=== PATIENT | female | born 1975 | race Caucasian/White ===

== ENCOUNTER → 2016-04-17 | Outpatient (CLI) | payer OTHER ==
[~2016-04-17] MED LIST: BIOTCAP2 PO; CHOL100040 PO; CLOZ100T18 PO; HLD5 PO; LAMO200T32 PO; LEVO88TA21 PO; MULT-506 PO; OMEP20CA59 PO; SERT1TAB68 PO; lovaza PO
--- NOTE | 2016-04-18 14:24 | MAMMOGRAPHY REPORT ---
BILATERAL FIRST EVER DIGITAL SCREENING MAMMOGRAM TOMOSYNTHESIS WITH CAD: 04/17/2016 CLINICAL HISTORY: Routine screening. Baseline exam. TECHNIQUE: Breast tomosynthesis in addition to standard 2D mammography was performed. Current study was also evaluated with a Computer Aided Detection (CAD) system. COMPARISON: No prior exams were available for comparison. BREAST COMPOSITION: There are scattered areas of fibroglandular density in both breasts. FINDINGS: There is a lobulated 16 x 9 mm mass in the 1:00 posterior left breast, and a smaller oval 5.7 mm mass in the 4:00 posterior left breast, for which additional characterization with targeted ultrasound and possible additional mammographic views are recommended. No other suspicious mass, architectural distortion or cluster of microcalcifications is seen bilater ally. IMPRESSION: ACR BI-RADS CATEGORY 0: INCOMPLETE EVALUATION: NEED ADDITIONAL IMAGING EVALUATION The masses in the left 1:00 and 4:00 posterior breast need additional imaging evaluation. The patient will be called to schedule an appointment. Approximately 10% of breast cancers are not detected with mammography. A negative mammographic repor t should not delay biopsy if a clinically suggestive mass is present. Keya Edgar M.D. ay/:04/17/2016 21:09:53 Special Needs Bus Driver: Anna FLORES)(Janny)([place]), [facility] letter sent: Addl Imaging 0 BI-RADS Code: ACR BI-RADS Category 0: Incomplete Evaluation: Need Additional Imaging Evaluation
== END | disposition home or self-care (01) ==
LOC: C.MAMM 10:29
PROVIDERS: ATTEND Internal Medicine
DX: Z12.31 Encounter for screening mammogram for malignant neoplasm of breast (principal); N63 Unspecified lump in breast

== ENCOUNTER → 2016-05-09 | Outpatient (CLI) | payer OTHER ==
--- NOTE | 2016-05-09 17:12 | MAMMOGRAPHY REPORT ---
ULTRASOUND OF LEFT BREAST: 05/09/2016 CLINICAL HISTORY: 41 year-old woman called back from baseline screening mammography for to lobulated and circumscribed masses in the upper outer quadrant of the left breast. No strong family history of breast cancer. COMPARISON: No prior exams were available for comparison. FINDINGS: Real-time high-resolution sonographic evaluation was performed throughout the entire late ral left breast. In the 3:00 axis, 3 cm from the nipple, there is an ovoid parallel hypoechoic cyst versus focal duct ectasia measuring 4.6 x 3.6 mm. This is thought to be incidentally identified. No other discrete solid or cystic mass is seen. There is no sonographic correlate to the lobulated and circumscribed 15 mm and 6 mm mammographic masses in the posterior left upper outer quadrant. IMPRESSION: ACR BI-RADS CATEGORY 0: INCOMPLETE EVALUATION: NEED ADDITIONAL IMAGING EVALUATION - FOL LOW-UP RECOMMENDED The 15 mm and 6 mm lobulated and circumscribed masses in the left upper outer posterior breast were not identified on ultrasound. Given that they are best identified on the tomosynthesis and on the s tandard 2-D views they blend in with the normal glandular tissue, they are not amenable to targeting via stereotactic biopsy. Although they could represent benign fibroadenomas, definitive characteri zation with a bilateral breast MRI is needed to exclude the possibility of a suspicious enhancing ma ss. These recommendations were discussed with the patient at the time of the exam. She tentatively sche duled the MRI prior to leaving our department. Keya Edgar M.D. ay/:05/09/2016 15:20:06 Public Utilities Sales Representative: Dr. Keya Edgar, [facility] letter sent: Addl Imaging 0 BI-RADS Code: ACR BI-RADS Category 0: Incomplete Evaluation: Need Additional Imaging Evaluation
== END | disposition home or self-care (01) ==
LOC: C.MAMM 13:39
PROVIDERS: ATTEND Internal Medicine
DX: N63 Unspecified lump in breast (principal)

== ENCOUNTER → 2016-05-21 | Outpatient (CLI) | payer OTHER ==
[~2016-05-21] MED LIST changes: +GADAVIST IV PRN
--- NOTE | 2016-05-22 13:02 | MAMMOGRAPHY REPORT ---
BREAST MRI OF BOTH BREASTS : 05/21/2016 CLINICAL HISTORY: Lobulated 15 mm and 6 mm masses in the upper outer quadrant of the left breast see n mammographically on the tomosynthesis images, without sonographic correlate identified. Patient p resents for further evaluation to assess for any suspicious enhancing masses. COMPARISON: Comparison is made to exams dated: 04/17/2016 mammogram and 05/09/2016 ultrasound - [facility]. TECHNIQUE: Using a 1.5 Emilie magnet and dedicated breast coil, multisequence axial images were obtai nancy through the breasts. After uneventful IV administration of 9 mL of Gadavist, dynamic multiphase contrast-enhanced axial images, and sagittal postcontrast were obtained. Temporal subtraction axia l images and 3-D MIP images are provided. Everything was then reviewed on a 3-D workstation, Rezzcard. FINDINGS: Right breast: There is bqjy-xv-dceyjjso background parenchymal enhancement with scattered foci of en hancement seen throughout the right breast. There is no evidence of a suspicious enhancing mass, no n-mass enhancement, architectural distortion or suspicious kinetics. No focal skin thickening or ni pple retraction. No suspicious right axillary lymphadenopathy. Left breast: There is ywcr-zh-[id number] background parenchymal enhancement with scattered foci of enh ancement throughout the left breast. There is a circumscribed biconvex 8 x 6 x 16 mm mass in the 12 :00 middle one third of the left breast. It demonstrates T2 isointensity, has mild areas of persist ent kinetics and non-enhancing internal septae. This mass is the same shape and size as the mammogr aphic mass, however, is located at 12:00, but it appeared more in the upper outer quadrant based on mammographic positioning. This is likely the reason for and unyielding ultrasound. Given the MRI a ppearance this most likely represents a benign fibroadenoma. However, given that it was identified on the patient's baseline mammogram, a short interval follow-up left mammogram including tomosynthes is images and possible repeat ultrasound is recommended to ensure stability in 6 months. No other d efinite cyst or solid mass is seen to correlate with the smaller, 6 mm mass seen mammographically, a nd this could have represented normal overlapping tissue. Overall, there is no evidence of a suspic ious enhancing mass, non-mass enhancement, architectural distortion or suspicious kinetics within th e left breast. There is no focal skin thickening or nipple retraction. No suspicious left axillary lymphadenopathy. IMPRESSION: ACR-BI-RADS CATEGORY 3: PROBABLY BENIGN 1. There is a well-circumscribed benign-appearing 16 mm mass with nonenhancing internal septae in t he 12:00 left breast, thought to correlate with the mammographic mass described on the 04/17/2016 ma mmogram. It was likely not identified sonographically given that it appeared more lateral within th e breast based on mammogram positioning. The MRI features suggest a benign fibroadenoma but a short interval follow-up left mammogram including tomosynthesis images and possible repeat ultrasound is recommended to ensure stability, given that this was identified on the patient's baseline mammogram. 2. No suspicious MRI abnormality or enhancing mass is seen to correlate with the possible smaller 6 mm mass in the lateral left breast. This can also be reassessed at follow-up mammography. 3. No MRI evidence of malignancy within the right breast. The patient will receive written notification of the results. Keya Edgar M.D. ay/:05/21/2016 22:09:12 Mergers [employer] Acquisitions Attorney: cafeteria director, [facility] letter sent: Follow Up Recommended 3 BI-RADS Code: ACR-BI-RADS Category 3: Probably Benign
== END | disposition home or self-care (01) ==
LOC: C.MRI 12:07
PROVIDERS: ATTEND Internal Medicine
DX: N63 Unspecified lump in breast (principal)

== ENCOUNTER → 2016-05-25 | Outpatient (CLI) | payer OTHER ==
[~2016-05-25] MED LIST changes: -GADAVIST IV PRN
[2016-05-25 10:19] LABS: BLOOD UREA NITROGEN 14 mg/dl (7-18); GLUCOSE 101 mg/dl (70-99)
[2016-05-25 10:20] LABS: ALT/SGPT 27 U/L (12-78); AST/SGOT 15 U/L (15-37); CALCIUM 9.6 mg/dl (8.5-10.1); CARBON DIOXIDE 31 mmol/L (21-32); CHLORIDE 104 mmol/L (98-107); POTASSIUM 3.7 mmol/L (3.5-5.1); SODIUM 142 mmol/L (136-145)
[2016-05-25 10:31] LABS: ALKALINE PHOSPHATASE 87 U/L (45-117); CHOLESTEROL 171 mg/dl (0-200); CHOLESTEROL/HDL RATIO 3.1; HDL CHOLESTEROL 55 mg/dl; LDL CHOLESTEROL CALCULATED 82 mg/dl; THYROID STIMULATING HORMONE 0.815 uIu/ml (0.300-4.500); TRIGLYCERIDES 169 mg/dl (0-150); VERY LOW DENSITY LIPOPROT CALC 34 mg/dl
== END | disposition home or self-care (01) ==
LOC: C.LAB 08:44
PROVIDERS: ATTEND Psychiatry & Neurology Geriatric Psychiatry
DX: Z79.899 Other long term (current) drug therapy (principal); F25.9 Schizoaffective disorder, unspecified

== ENCOUNTER → 2016-11-19 | Outpatient (CLI) | payer OTHER ==
--- NOTE | 2016-11-19 15:25 | MAMMOGRAPHY REPORT ---
UNILATERAL LEFT DIGITAL DIAGNOSTIC MAMMOGRAM TOMOSYNTHESIS WITH CAD AND TARGETED LEFT ULTRASOUND: 10/31 CLINICAL HISTORY: 41 year-old woman presents for follow-up in the left breast for a benign-appearing 14 mm mass in the 12:00 axis. A second smaller circumscribed mass was also seen in the upper outer q uadrant on prior mammograms, but not definitely identified on MRI. TECHNIQUE: Left breast tomosynthesis in addition to standard 2D mammography was performed. Current st udy was also evaluated with a Computer Aided Detection (CAD) system. COMPARISON: Comparison is made to exams dated: 05/21/2016 breast MRI, 05/09/2016 ultrasound, and 017 mammogram - [facility]. BREAST COMPOSITION: The tissue of the left breast is heterogeneously dense, which may obscure small masses. FINDINGS: There is a lobulated and circumscribed 14 x 7 x 9 mm mass in the approximate 12:00 posteri or left breast, that has not significantly changed in size or appearance comparing to the prior mammo grams dated 04/17/2016. This mass was identified on breast MRI and had a benign appearance, possibly representing a fibroadenoma. Further evaluation with ultrasound was performed. A smaller, 3.7 x 5. 4 x 3.0 mm mass is identified in the approximate 3:00 posterior left breast. This is also stable com paring to the prior mammograms dated 04/17/2016. No other new suspicious mass, focal area of archite ctural distortion or suspicious calcifications are seen. Targeted ultrasound was performed in the left breast with particular attention to the 12:00 axis and lateral breast. In the 12:00 breast, 15 cm from the nipple, there is a mixed echogenicity Eiko isoec hoic and echogenic circumscribed parallel mass measuring 9.6 x 4.4 x 17.2 mm. This could represent a fibroadenolipoma or fibroadenoma. Overall it has a benign sonographic appearance. It correlates wi th both the mammographic mass and the MRI mass. Another six-month follow-up left diagnostic mammogra m and targeted ultrasound is recommended to ensure longer stability. In the 3:00 left breast, 3 cm f rom the nipple, there is an oval circumscribed hypoechoic solid versus cystic mass measuring 3.3 x 1. 7 x 3.8 mm. This is likely incidentally identified and is not thought to correlate with the second s maller circumscribed mammographic mass in the approximate 3:00 posterior axis. IMPRESSION: ACR-BI-RADS CATEGORY 3: PROBABLY BENIGN, TARGETED ULTRASOUND ACR-BI-RADS CATEGORY 3: PRO BABLY BENIGN 1. Stable mammographic appearance of the left breast including a benign appearing circumscribed and lobulated 17 mm mass in the upper 12:00 posterior breast. A second smaller circumscribed 5.4 mm mass is seen in the approximate 3:00 posterior breast, which is also unchanged dating back to April. A short interval follow-up left diagnostic mammogram and repeat targeted ultrasound is recommende d to ensure longer stability. Annual right mammography will also be due at that time. Approximately 10% of breast cancers are not detected with mammography. A negative mammographic report should not delay biopsy if a clinically suggestive mass is present. Keya Edgar M.D. ay/:11/19/2016 15:01:12 Skip Hoist Operator: Amy STERN(R)(M), [facility] letter sent: Follow Up Recommended 3 BI-RADS Code: ACR-BI-RADS Category 3: Probably Benign Ultrasound BI-RADS: ACR-BI-RADS Category 3: Pr obably Benign
== END | disposition home or self-care (01) ==
LOC: C.MAMM 10:07
PROVIDERS: ATTEND Internal Medicine
DX: N63 Unspecified lump in breast (principal)

== ENCOUNTER → 2017-03-19 | Outpatient (CLI) | payer OTHER ==
[2017-03-19 10:12] LABS: BASO % 0.1 %; BASO ABS # 0.01 K/uL (0-0.2); COMPLETE YES; HEMATOCRIT 42.5 % (37-47); IG% 0.1 %; LYMPH % 36.6 %; LYMPH ABS # 2.69 K/uL (1.2-3.4); MEAN CELL VOLUME 80.8 fL (80-100); MEAN CORPUSCULAR HEMOGLOBIN 26.2 pg (25-34); MEAN CORPUSCULAR HGB CONC 32.5 g/dl (32-36); MEAN PLATELET VOLUME 11.2 fL (7.4-10.4); MONO % 5.3 %; NEUT % 57.9 %; PLATELET COUNT 219 K/uL (130-400); RED BLOOD COUNT 5.26 M/uL (4.2-5.4); WHITE BLOOD COUNT 7.35 K/uL (4.8-10.8)
[2017-03-19 10:44] LABS: ALT/SGPT 21 U/L (12-78); BLOOD UREA NITROGEN 11 mg/dl (7-18); BUN/CREATININE RATIO 8.4 (10-20); CALCIUM 9.8 mg/dl (8.5-10.1); CARBON DIOXIDE 27 mmol/L (21-32); CHLORIDE 104 mmol/L (98-107); CHOLESTEROL 161 mg/dl (0-200); CREATININE 1.28 mg/dl (0.60-1.20); GLUCOSE 86 mg/dl (70-99); POTASSIUM 3.9 mmol/L (3.5-5.1); SODIUM 138 mmol/L (136-145); TRIGLYCERIDES 157 mg/dl (0-150); VERY LOW DENSITY LIPOPROT CALC 31 mg/dl
[2017-03-19 10:55] LABS: ALKALINE PHOSPHATASE 84 U/L (45-117); AST/SGOT 15 U/L (15-37); CHOLESTEROL/HDL RATIO 2.9; HDL CHOLESTEROL 55 mg/dl; LDL CHOLESTEROL CALCULATED 75 mg/dl; THYROID STIMULATING HORMONE 0.853 uIu/ml (0.300-4.500)
== END | disposition home or self-care (01) ==
LOC: C.LAB1850 09:37
PROVIDERS: ATTEND Psychiatry & Neurology Neurology
DX: Z79.899 Other long term (current) drug therapy (principal)

== ENCOUNTER 2017-05-17 14:08 | Emergency (ER) | payer OTHER ==
[~2017-05-17] VITALS: Ht 160 cm; Wt 88.4 kg
[~2017-05-17 14:08] MED LIST changes: -LAMO200T32 PO; -MULT-506 PO; -OMEP20CA59 PO; -SERT1TAB68 PO
[2017-05-17 14:17] VITALS: TEMP 36.9; Ht 160 cm; Wt 88.4 kg
[2017-05-17] MEDS ORDERED: OMEP20CA59 PO (15:49)
[2017-05-17] MEDS ORDERED: BUPR75TA20 PO (17:08)
[2017-05-17] MEDS ORDERED: OMEG10007 PO (17:08)
[2017-05-17] MEDS ORDERED: BENZ100C84 PO (17:08)
[2017-05-17] MEDS ORDERED: ATOR10TA82 PO (17:08)
[2017-05-17] MEDS ORDERED: PRLSR20 PO (17:08)
[2017-05-17] MEDS ORDERED: ACET-1256 PO (17:08)
[2017-05-17] MEDS ORDERED: ONDA4TAB46 PO (17:08)
[2017-05-17] MEDS ORDERED: LEVO88TA PO (17:08)
[2017-05-17] MEDS ORDERED: BENZ-89 PO (17:08)
[2017-05-17] MEDS ORDERED: POTA10CA28 PO (17:08)
[2017-05-17] MEDS ORDERED: ONDANSETRON INJ 2 MG/ML 2 ML VIAL IV PRN (17:15)
[2017-05-17] MEDS ORDERED: SODIUM CHLORIDE 0.9% 1000ML 1,000 ML IV ONE ×2 (17:15)
--- NOTE | 2017-05-17 17:15 | EMERGENCY ROOM VISIT NOTE ---
History First contact with patient: 16:52 Chief Complaint: VOMITING Stated Complaint: CHILLS, VOMITING, DIARRHEA, Nursing Triage Summary: triage note; pt reports nausea, vomitting, diarrhea since saturday. pt reports feeling dizzy. History of Present Illness The patient is a 42 year old female who presents to the Emergency Room with complaints of vomiting, diarrhea and a low-grade fever for the last 4 days. She has also had a cough. Her temperature was just under 100F. She saw a primary care physician 2 days ago. She was told to follow a clear liquid diet and then a bland diet. She has tried this without relief. She denies any severe abdominal pain. The patient's family is concerned that she has not been able to keep down her medications. She denies any sick contacts. Review of Systems 10 system review performed and negative unless noted in HPI or below Past Medical/Surgical History Medical Problems: (1) Kidney disease (2) Schizoaffective disorder (3) schizoaffective disorder, bipolar type Social History Smoking Status: Never Smoker Alcohol Use: none Drug Use: none Marital Status: single Housing Status: lives alone Occupation Status: unemployed Current/Historical Medications Scheduled Atorvastatin (Lipitor), 10 MG PO DAILY Benzonatate (Tessalon Perles), 200 MG PO TID Benztropine Mesylate (Cogentin), 1 MG PO QPM Biotin (Biotin 5000), 5,000 MCG PO DAILY Bupropion (Wellbutrin), 75 MG PO DAILY Cholecalciferol (Vitamin D-1000), 1,000 UNIT(INT) PO DAILY Clozapine (Clozapine), 3.5 TAB PO HS Fish Oil ([place]-3), 1 CAP PO BID Lamotrigine (Lamictal Xr), 200 MG PO BID Levofloxacin (Levaquin), 500 MG PO DAILY Levothyroxine Sodium (Synthroid), 88 MCG PO DAILY Multivitamin (Multivitamin), 1 TABLET PO BID Omeprazole (Prilosec), 20 MG PO BID Ondasetron Odt (Zofran Odt), 4 MG SL Q6H Potassium Chloride (Micro-K Ext Rel), 10 MEQ PO DAILY Sertraline Hcl (Zoloft), 200 MG PO HS Scheduled PRN Acetaminophen (Tylenol), 1,000 MG PO Q8 PRN for Pain Benzonatate (Tessalon Perles), 100 MG PO TID PRN for Cough Ondansetron Hcl (Zofran), 4 MG PO Q8 PRN for Nausea Physical Exam Vital Signs Date Time Temp Pulse Resp B/P (MAP) Pulse Ox O2 Delivery O2 Flow Rate FiO2 05/17/17 22:44 93 20 116/81 95 05/17/17 21:25 81 20 124/80 98 Room Air 05/17/17 19:30 81 18 106/76 97 Room Air 05/17/17 17:42 86 18 106/83 99 Room Air 05/17/17 14:17 36.9 109 18 120/91 92 Room Air Physical Exam GENERAL: 42-year-old female, mildly acutely ill in appearance, SKIN: The skin was without rashes, erythema, edema, or bruising. HEAD: Normocephalic atraumatic. MOUTH: Mucous membranes dry. Tonsils are not enlarged. Pharynx without erythema or exudate. Uvula midline. Airway patent. Tongue does not deviate. NECK: Supple without nuchal rigidity. No lymphadenopathy. Cervical spine is nontender. No JVD. HEART: Regular rate and rhythm without murmurs gallops or rubs. LUNGS: Clear to auscultation bilaterally without wheezes, rales or rhonchi. No accessory muscle use. ABDOMEN: Positive bowel sounds x 4.Soft, nontender, without organomegaly. No guarding or rebound tenderness. MUSCULOSKELETAL: No muscle atrophy, erythema, or edema noted. . Strength 5/5 throughout. NEURO: Patient was alert and oriented to person place and time. Normal sensation to touch. No focal neurological deficits. Medical Decision & Procedures ER Provider Diagnostic Interpretation: Chest/abdominal films IMPRESSION: 1. Right upper lobe airspace opacity consistent with a pneumonia. Recommend one month chest x-ray follow-up to ensure resolution. 2. Unremarkable bowel gas pattern. No evidence for bowel obstruction. 3. Cholecystectomy. Electronically signed by: Duglas Haas M.D. 05/17/2017 6:26 PM Dictated Date/Time: 05/17/2017 6:24 PM Laboratory Results 05/17/17 17:32 Red Blood Count 5.49, Mean Corpuscular Volume 77.2, Mean Corpuscular Hemoglobin 25.7, Mean Corpuscular Hemoglobin Concent 33.3, Mean Platelet Volume 11.9, Neutrophils (%) (Auto) 62.0, Lymphocytes (%) (Auto) 29.3, Monocytes (%) (Auto) 8.1, Eosinophils (%) (Auto) 0.1, Basophils (%) (Auto) 0.2, Neutrophils # (Auto) 6.32, Lymphocytes # (Auto) 2.98, Monocytes # (Auto) 0.82, Eosinophils # (Auto) 0.01, Basophils # (Auto) 0.02 05/17/17 17:32 Test 05/17/17 17:32 05/17/17 19:28 05/17/17 19:42 White Blood Count 10.18 K/uL (4.8-10.8) Red Blood Count 5.49 M/uL (4.2-5.4) Hemoglobin 14.1 g/dL (12.0-16.0) Hematocrit 42.4 % (37-47) Mean Corpuscular Volume 77.2 fL (80-100) Mean Corpuscular Hemoglobin 25.7 pg (25-34) Mean Corpuscular Hemoglobin Concent 33.3 g/dl (32-36) Platelet Count 214 K/uL (130-400) Mean Platelet Volume 11.9 fL (7.4-10.4) Neutrophils (%) (Auto) 62.0 % Lymphocytes (%) (Auto) 29.3 % Monocytes (%) (Auto) 8.1 % Eosinophils (%) (Auto) 0.1 % Basophils (%) (Auto) 0.2 % Neutrophils # (Auto) 6.32 K/uL (1.4-6.5) Lymphocytes # (Auto) 2.98 K/uL (1.2-3.4) Monocytes # (Auto) 0.82 K/uL (0.11-0.59) Eosinophils # (Auto) 0.01 K/uL (0-0.5) Basophils # (Auto) 0.02 K/uL (0-0.2) RDW Standard Deviation 44.0 fL (36.4-46.3) RDW Coefficient of Variation 15.5 % (11.5-14.5) Immature Granulocyte % (Auto) 0.3 % Immature Granulocyte # (Auto) 0.03 K/uL (0.00-0.02) Anion Gap 14.0 mmol/L (3-11) Est Creatinine Clear Calc Drug Dose 61.5 ml/min Estimated GFR () 60.7 Estimated GFR (Non- 52.4 BUN/Creatinine Ratio 8.3 (10-20) Calcium Level 9.5 mg/dl (8.5-10.1) Total Bilirubin 0.5 mg/dl (0.2-1) Aspartate Amino Transf (AST/SGOT) 27 U/L (15-37) Alanine Aminotransferase (ALT/SGPT) 24 U/L (12-78) Alkaline Phosphatase 75 U/L (45-117) Total Protein 9.0 gm/dl (6.4-8.2) Albumin 3.7 gm/dl (3.4-5.0) Globulin 5.3 gm/dl (2.5-4.0) Albumin/Globulin Ratio 0.7 (0.9-2) Lipase 173 U/L (73-393) Influenza Type A Antigen Neg for Influ A (NEG) Influenza Type B Antigen Neg for Influ B (NEG) Urine Color YELLOW Urine Appearance CLEAR (CLEAR) Urine pH 6.5 (4.5-7.5) Urine Specific [place] 1.007 (1.000-1.030) Urine Protein NEG (NEG) Urine Glucose (UA) NEG (NEG) Urine Ketones 1+ (NEG) Urine Occult Blood NEG (NEG) Urine Nitrite NEG (NEG) Urine Bilirubin NEG (NEG) Urine Urobilinogen NEG (NEG) Urine Leukocyte Esterase TRACE (NEG) Urine WBC (Auto) 1-5 /hpf (0-5) Urine RBC (Auto) 0-4 /hpf (0-4) Urine Hyaline Casts (Auto) 0 /lpf (0-5) Urine Epithelial Cells (Auto) >30 /lpf (0-5) Urine Bacteria (Auto) NEG (NEG) Urine Test NEG (NEG) Medications Administered Medications (Trade) Dose Ordered Sig/Maria Isabel Route Start Time Stop Time Status Last Admin Dose Admin Sodium Chloride 1,000 ml @ 999 mls/hr Q1H1M ONCE IV 05/17/17 17:15 05/17/17 18:15 DC 05/17/17 17:39 999 MLS/HR Ondansetron HCl (Zofran Inj) 4 mg Q2H PRN IV 05/17/17 17:15 18 23:32 DC 05/17/17 17:39 4 MG Sodium Chloride 1,000 ml @ 999 mls/hr Q1H1M ONCE IV 05/17/17 17:15 05/17/17 18:15 DC 05/17/17 17:39 999 MLS/HR Potassium Chloride 10 meq/ Prmx 100 ml @ 100 mls/hr TODAY@1849 IV 05/17/17 18:49 05/17/17 23:32 DC 05/17/17 18:49 100 MLS/HR Levofloxacin (Levaquin / D5W) 750 mg NOW ONCE IV 05/17/17 19:30 05/17/17 19:31 DC 05/17/17 19:30 750 MG Ondansetron HCl (ZOFRAN ODT 4MG Home Pack) 1 [facility] ONCE PO 05/17/17 22:00 05/17/17 22:01 DC 05/17/17 22:38 1 [facility] ED Course Patient was seen and examined Vital signs including blood pressure were reviewed medications list was verified with patient Labs were obtained, and a saline lock was established The patient was medicated with Zofran and hydrated with 2 L normal saline Imaging was performed and reviewed Upon reevaluation, the patient was feeling much better. We discussed the results of her workup. She voiced understanding. She was given a dose of Levaquin 750 mg IV The patient was also seen by supervising physician who is in agreement with my plan And oxygen trial was performed. O2 was 95% on room air The patient was given a home pack a Zofran I reviewed discharge instructions the patient. They voiced understanding and had no further questions. Medical Decision Differential diagnosis: Viral GI illness, bacterial GI illness, bowel obstruction, influenza, pneumonia This patient is a 42-year-old female that presents to the emergency department complaining of vomiting and diarrhea. She has also had a cough. On exam, her abdomen was benign. She is afebrile. Her labs revealed hypokalemia, which was repleted. There is no leukocytosis. The patient's x-rays reveal a right-sided pneumonia. Abdominal films were unremarkable. The patient had good symptomatic relief in the emergency department. She was tolerating liquids. She was given a dose of Levaquin for pneumonia. An oxygen trial was performed. She did not become hypoxic. I believe she is stable to be discharged home now that she is tolerating a diet. She and the patient's mother were comfortable with this plan. She'll be given a 7 day course of antibiotics. She was encouraged to follow-up within the next 48-72 hours with her primary care physician for recheck. She agrees to return to the emergency department with any worsening symptoms. This chart was completed in part utilizing [employer] Speech Voice Recognition software. Attempts were made to minimize the grammatical errors, random word insertions, pronoun errors and incomplete sentences. Any formal questions or concerns about the content, text or information contained within the body of this dictation should be directly addressed to the provider for clarification. Medication Reconcilliation Current Medication List: was personally reviewed by me Blood Pressure Screening Patient's blood pressure: Normal blood pressure Impression Primary Impression: Pneumonia Departure Information Dispostion Home / Self-Care Prescriptions Benzonatate (Tessalon Perles) 200 Mg Cap 200 MG PO TID, #20 CAP Prov: Norma Espana PA-C 05/17/17 Levofloxacin (Levaquin) 500 Mg Tab 500 MG PO DAILY for 6 Days, #6 TAB Prov: Norma Espana PA-C 05/17/17 Ondasetron Odt (ZOFRAN ODT) 4 Mg Tab 4 MG SL Q6H for Nausea, #20 TAB Prov: Norma Espana PA-C 05/17/17 Referrals Katherine Dumont M.D. (PCP) Patient Instructions ED Pneumonia Adult, My [facility] Additional Instructions You were evaluated in the emergency department for vomiting, diarrhea and fever. Your x-ray shows a right-sided pneumonia. It is important to stay well hydrated. Please follow a clear liquid diet for 24 hours. This consists of broth, water and sports drinks such as Gatorade. If you are feeling better after 24 hours, please follow a bland diet such as toast and crackers Please take the entire course of antibiotics You may have Zofran 1 tab under the tongue every 6 hours as needed for nausea Please take Tessalon Perles 1 pill every 8 hours as needed for cough Ibuprofen 600 mg and/or Tylenol 1000 mg every 8 hours as needed for pain or fever You may also alternate these medications for more effective pain relief: Ibuprofen --4 HRS--> Tylenol --4 HRS--> ibuprofen --4 HRS--> Tylenol .... It is very important to follow up closely with your primary care physician. Please do so within the next 48-72 hours for recheck. Do not hesitate to return to the emergency department with any new, worsening or concerning symptoms; especially, uncontrolled vomiting, severe abdominal pain , difficulty breathing for uncontrolled fever
[2017-05-17] MEDS ORDERED: LAMO200T32 PO (17:19)
[2017-05-17] MEDS ORDERED: CLOZ100T18 PO (17:25)
[2017-05-17 18:10] LABS: BASO % 0.2 %; BASO ABS # 0.02 K/uL (0-0.2); EOS % 0.1 %; EOS ABS # 0.01 K/uL (0-0.5); HEMATOCRIT 42.4 % (37-47); HEMOGLOBIN 14.1 g/dL (12.0-16.0); IG# 0.03 K/uL (0.00-0.02); LYMPH % 29.3 %; LYMPH ABS # 2.98 K/uL (1.2-3.4); MEAN CELL VOLUME 77.2 fL (80-100); MEAN CORPUSCULAR HEMOGLOBIN 25.7 pg (25-34); MEAN CORPUSCULAR HGB CONC 33.3 g/dl (32-36); MEAN PLATELET VOLUME 11.9 fL (7.4-10.4); MONO % 8.1 %; MONO ABS # 0.82 K/uL (0.11-0.59); NEUT ABS # 6.32 K/uL (1.4-6.5); PLATELET COUNT 214 K/uL (130-400); RED CELL DISTRIBUTION WIDTH CV 15.5 % (11.5-14.5); WHITE BLOOD COUNT 10.18 K/uL (4.8-10.8)
[2017-05-17 18:25] LABS: ALBUMIN 3.7 gm/dl (3.4-5.0); CALCIUM 9.5 mg/dl (8.5-10.1); CREATININE 1.27 mg/dl (0.60-1.20); POTASSIUM 2.8 mmol/L (3.5-5.1)
--- NOTE | 2017-05-17 18:27 | DIAGNOSTIC IMAGING REPORT ---
CHEST AND ABDOMEN 2 VIEWS HISTORY: cough, nausea, vomiting, diarrhea COMPARISON: Chest 12/15/2011. FINDINGS: Patchy airspace opacity within the right upper lobe. The left lung is clear. The heart is normal in size. Cholecystectomy. No pneumoperitoneum. No pneumatosis. The bowel gas pattern is unremarkable. No evidence for bowel obstruction. No renal or ureteral calculi. Calcifications in the deep pelvis likely represent phleboliths. IMPRESSION: 1. Right upper lobe airspace opacity consistent with a pneumonia. Recommend one month chest x-ray follow-up to ensure resolution. 2. Unremarkable bowel gas pattern. No evidence for bowel obstruction. 3. Cholecystectomy. Electronically signed by: Duglas Haas M.D. 05/17/2017 6:26 PM Dictated Date/Time: 05/17/2017 6:24 PM
[2017-05-17 18:36] LABS: INFLUENZA B ANTIGEN Neg for Influ B (NEG)
[2017-05-17] MEDS ORDERED: POTASSIUM CHLR 10MEQ / WTR IV SCH (18:49)
[2017-05-17] MEDS ORDERED: POTASSIUM CHLORIDE 10 MEQ / 100ML WTR IV STA (18:49)
[2017-05-17] MEDS ORDERED: PROMETHAZINE HCL INJ 12.5 MG in SODIUM CHLORIDE 0.9% 50ML 50 ML IV STA (19:13)
[2017-05-17] MEDS ORDERED: LEVAQUIN 750MG / 150ML D5W IV ONE (19:30)
[2017-05-17] MEDS ORDERED: MULT-506 PO (20:29)
[2017-05-17] MEDS ORDERED: SERT1TAB68 PO (21:18)
--- NOTE | 2017-05-17 21:41 | EMERGENCY ROOM VISIT NOTE ---
ED Visit Note First contact with patient: 16:52 Patient seen after discussion with differential are CARLOS grider. Patient well- appearing here, vital signs stable. She received first dose of antibiotics here. Vital signs stable, patient well-appearing. Patient verbalized understanding of all results and was agreeable with plan as discussed with the physician sugar laboratory assistant. Please refer to her note for additional details.
[2017-05-17] MEDS ORDERED: ONDANSETRON HOME PACK 4MG OD TAB PO ONE (22:00)
[2017-05-17] MEDS ORDERED: ONDA4TAB10 SL (22:01)
[2017-05-17] MEDS ORDERED: BENZ1CAP90 PO (22:01)
[2017-05-17] MEDS ORDERED: LEVO-366 PO (22:01)
[2017-05-17 22:44] VITALS: BP 116/81; PULSE 93; O2SAT 95
== END 2017-05-17 22:45 | disposition home or self-care (01) ==
LOC: C.EDB 14:10 → C.EDC 22:45
DX: J18.9 Pneumonia, unspecified organism (principal); R19.7 Diarrhea, unspecified; F25.0 Schizoaffective disorder, bipolar type; Z79.899 Other long term (current) drug therapy

== ENCOUNTER → 2017-05-23 | Outpatient (CLI) | payer OTHER ==
[~2017-05-23] MED LIST changes: +ACET-1256 PO; +ATOR10TA82 PO; +BENZ-89 PO; +BENZ100C84 PO; +BENZ1CAP90 PO; +BUPR75TA20 PO; -HLD5 PO; +LAMO200T32 PO; +LEVO-366 PO; +LEVO88TA PO; -LEVO88TA21 PO; +MULT-506 PO; +OMEG10007 PO; +OMEP20CA59 PO; +ONDA4TAB10 SL; +ONDA4TAB46 PO; +POTA10CA28 PO; +SERT1TAB68 PO; -lovaza PO
--- NOTE | 2017-05-23 14:03 | MAMMOGRAPHY REPORT ---
BILATERAL DIGITAL DIAGNOSTIC MAMMOGRAM TOMOSYNTHESIS WITH CAD AND TARGETED LEFT ULTRASOUND: 05/23/2017 CLINICAL HISTORY: 42-year-old woman presents at time of annual screening exam. Also follow-up benign -appearing masses in the left breast. TECHNIQUE: Bilateral breast tomosynthesis in addition to standard 2D mammography was performed. Aaron tional right MLO and left MLO views were performed due to patient motion. Current study was also jamila luated with a Computer Aided Detection (CAD) system. COMPARISON: Comparison is made to exams dated: 11/19/2016 ultrasound, 05/21/2016 breast MRI, 11/19/2016 mammogram, 05/09/2016 ultrasound, and 04/17/2016 mammogram - [facility]. BREAST COMPOSITION: The tissue of both breasts is heterogeneously dense, which may obscure small mas ses. FINDINGS: There are a few punctate microcalcifications scattered bilaterally, stable compared to the prior mammograms and most likely benign. A lobulated and circumscribed mass is again identified in t he 12:00 posterior left breast, measuring 9.6 x 15.0 x 8.5 mm. This has not significantly changed in size or appearance dating back to the baseline mammogram performed 04/17/2016 and is most likely katelin ign. Another 12 month follow-up is recommended to ensure at least 2 years of stability to confirm be nignity. A second possible smaller mass seen lateral to this dominant mass in the CC projection is n o longer identified, suggesting it could have represented normal overlapping fibroglandular tissue. No areas of architectural distortion, asymmetries, other masses or suspicious calcifications are iden tified bilaterally. Targeted ultrasound was performed in the left breast at 12:00 and 3:00 to reassess the probably benig n masses seen on prior ultrasound. In the 12:00 left breast, 15 cm from the nipple, there is a mixed echogenicity isoechoic solid mass, parallel in orientation with the circumscribed borders, measuring 12.9 x 4.7 x 13.7 mm. This could represent a fibroadenoma or fibroadenolipoma and it is unchanged i n size dating back to 11/19/2016 when comparing to prior ultrasounds. In the 3:00 left breast, 3 cm from the nipple, a small hypoechoic to anechoic cystic appearing mass is again identified, measuring 3.7 x 1.6 x 4.1 mm, previously 3.3 x 1.7 x 3.7 mm. This has not significantly changed in size and st ill has a benign ultrasound appearance. IMPRESSION: ACR-BI-RADS CATEGORY 3: PROBABLY BENIGN, TARGETED ULTRASOUND ACR-BI-RADS CATEGORY 3: PRO BABLY BENIGN 1. Stable bilateral mammograms including a benign-appearing lobulated and circumscribed 15 mm mass i n the 12:00 posterior left breast. 2. A possible second mass lateral to the first is no longer identified, suggesting benign fibrogland ular tissue. 3. Stable sonographic appearance of benign-appearing solid and solid versus cystic masses in the 12: 00 and 3:00 axes of the left breast, in which the dominant mass in the 12:00 breast correlates with t he dominant mammographic mass. 3. Overall, given at least one year of stability mammographically the above findings are most likely benign, but 2 years of stability is needed to confirm benignity and therefore another 12 month follo w-up bilateral diagnostic mammogram and repeat ultrasound is recommended. These results and recommendations were discussed with the patient at the time of the exam. She tenta tively scheduled a follow-up appointment prior to leaving our department. Approximately 10% of breast cancers are not detected with mammography. A negative mammographic report should not delay biopsy if a clinically suggestive mass is present. Keya Edgar M.D. ay/:05/23/2017 12:34:10 [employer]: Satish FLORES)(Janny), [facility] letter sent: Follow Up Recommended 3 BI-RADS Code: ACR-BI-RADS Category 3: Probably Benign Ultrasound BI-RADS: ACR-BI-RADS Category 3: Pr obably Benign
== END | disposition home or self-care (01) ==
LOC: C.MAMM 10:53
PROVIDERS: ATTEND Internal Medicine
DX: N63.21 Unspecified lump in the left breast, upper outer quadrant (principal)

== ENCOUNTER 2023-05-06 17:53 | Inpatient (IN) ==
[2023-05-06 18:51] LABS: Basophils # (auto) 0.03 K/uL (0.00-0.20); Basophils % (auto) 0.4 %; Eosinophils # (auto) 0.01 K/uL (0.00-0.50); Eosinophils % (auto) 0.1 %; Hematocrit (blood only) 43.7 % (37.0-47.0); Hemoglobin 14.5 g/dl (12.0-16.0); Immature Granulocytes # (auto) 0.04 K/uL (0.01-0.20); Immature Granulocytes % (auto) 0.5 %; Lymphocytes # (auto) 1.45 K/uL (1.20-3.40); Lymphocytes % (auto) 19.4 %; Mean Corpuscular Hemoglobin 28.8 pg (25.0-34.0); Mean Corpuscular Hgb Conc 33.2 g/dL (32.0-36.0); Mean Corpuscular Volume 86.9 fL (80.0-100.0); Mean Platelet Volume 10.8 fL (9.4-12.4); Monocytes # (auto) 0.68 K/uL (0.11-0.59); Monocytes % (auto) 9.1 %; Neutrophils # (auto) 5.25 K/uL (1.40-6.50); Neutrophils % (auto) 70.5 %; Platelet Count 213 K/uL (130-400); RDW Coefficient of Variation 12.1 % (11.5-14.5); RDW Standard Deviation 38.8 fL (36.4-46.3); Red Blood Count 5.03 M/uL (4.20-5.40); White Blood Count 7.46 K/ul (4.8-10.8)
[2023-05-06 19:08] LABS: Albumin Globulin Ratio 1.2 (0.9-2); Albumin Level 4.2 gm/dl (3.4-5.0); BUN Creatinine Ratio 11.8 (10-20); Bilirubin,Total 0.3 mg/dl (0.2-1.0); Calcium 9.7 mg/dl (8.6-10.3); Creatinine Clr Calc Pharmacy 71.1 ml/min; Est GFR (African American) 69.2 ml/min; Est GFR (Non-African American) 59.7 ml/min; Globulin 3.4 gm/dl (2.5-4.0); Potassium 3.4 mmol/L (3.5-5.1); Total Protein 7.6 gm/dl (6.0-8.3)
--- NOTE | 2023-05-06 19:50 | Emergency Department Note ---
Impression & Plan Seizure-like activity, Influenza A ED Provider Note HISTORY OF PRESENT ILLNESS: Patient is a 48-year-old female presenting after seizure-like activity. Patient reportedly was at a concert when she fell to the ground and had a witnessed seizure-like activity for around 1 minute. She does have a history of seizures, but her last seizure was a number of years ago per her report. She reportedly missed her dose of Lamictal last night. On arrival to the ER, the patient is still postictal and very confused and not answering questions. Mother is at bedside and is unable to provide any meaningful history. No reported changes in medications. ROS: as above PHYSICAL EXAM: Constitutional: Patient appears in no acute distress. HENT: Head: Normocephalic and atraumatic. Eyes: EOMI, PERRL Mouth/Throat: Mucous membranes moist. Neck: Trachea midline. Neck supple. Cardiovascular: Tachycardic with regular rhythm. No murmurs, rubs or gallops. Intact distal pulses. Pulmonary/Chest: No respiratory distress. Breath sounds clear and equal bilaterally. No wheezes or rales. Abdominal: Abdomen soft, no tenderness, rebound or guarding. Musculoskeletal: No edema, tenderness or deformity noted. Skin: Warm and dry. No rash, erythema, pallor or cyanosis Psychiatric: Appropriate mood and affect for situation. Neurological: Alert. CN II-XII grossly intact, moving all extremities equally and fully. MDM: - Vitals signs showed hypertension and tachycardia. - History obtained via EMS, given patient's confusion. Patient presents with seizure-like activity. Patient reportedly was at a concert when she fell to the ground and had a witnessed seizure-like activity for around 1 minute. She does have a history of seizures but her last seizure was a number of years ago per her report. She reportedly missed her dose of Lamictal last night. On arrival to the ER, the patient is confused and postictal. Mother at bedside is unable provide any meaningful history. No reported changes in medications. - Chronic conditions affecting care: seizure activity - Differential diagnoses include, but are not limited to: Breakthrough seizure; missed medication; electrolyte abnormality; dysrhythmia - Order placed for continuous cardiac monitoring. At this time, monitor showed rate of 76 bpm with normal sinus rhythm, per my interpretation. - External medical records reviewed. EMS run sheet was reviewed. Patient was vitally stable and route. No medications were given prehospital. - EKG interpreted by myself showed normal sinus rhythm. Rate tachycardic at 110 bpm. QT 328. No acute ischemic changes. - Laboratory workup interpreted by myself showed normal WBC; slight hypokalemia (K 3.4); normal lactate; normal procalcitonin; normal troponin; normal CK - CT head wo contrast negative for acute pathology. Noted to have a stable dilated third ventricle. CT cervical spine negative for any acute fracture. - UA negative for infection - Viral respiratory panel positive for influenza A. - Patient was monitored in the emergency department for 5 hours and 43 minutes. No further seizure-like activity. She did return to neurological baseline. Discussed results with the patient and her mother at bedside. Instructed on return precautions. Instructed on wearing a mask given her influenza positive testing today. Instructed on return precautions. Her breakthrough seizure is likely secondary to her missed Lamictal dosing last night. Recommended she continue to take her Lamictal as prescribed. - Patient remained stable throughout the visit. Results were discussed with the patient and patient's family. They were given the opportunity to ask questions. Had lengthy discussion with patient about supportive care return precautions. No new prescriptions. No changes to medications. Patient to follow up with primary care physician for further evaluation and management. All questions answered. Patient agreeable plan. ASSESSMENT AND PLAN: Diagnosis: Seizure-like activity; hypokalemia; influenza A Plan: Discharge Past Med/Surg History Medical History (Updated 05/06/23 @ 23:33 by Veronica Anguiano MD) Psychosis Seizure-like activity Family history non-contributory Acute UTI (urinary tract infection) Schizoaffective disorder Surgical History (Updated 08/11/20 @ 11:06 by Chelsea Cruz) H/O tubal ligation No pertinent past surgical history Family History (Updated 08/11/20 @ 11:07 by Chelsea Cruz) Father Prostate cancer Denies family history of Ovarian cancer Myocardial infarction Breast cancer Colorectal cancer Social History (Updated 08/11/20 @ 11:10 by Chelsea Cruz) Smoking Status: Unknown if ever smoked Second Hand Exposure: No; Do You Dip or Chew Tobacco: No; Hx Alcohol Use: No Hx Substance Use: No Preferred Language: Romanian marital status: Single Current Living Situation: Alone current occupational status: employed How many Children do You have: 0 Feels Safe at Home: Yes caffeine: No Dental Care, Regularly: Yes Physical Activity Frequency: 3-4 Times per Week Seatbelt Use: always Sunscreen Use: Yes Allergies Allergies Allergy/AdvReac Type Severity Reaction Status Date / Time No Known Allergies Allergy Unknown Verified 05/06/23 23:03 Home Meds Home Medications Medication Instructions Recorded Confirmed atorvastatin 10 mg tablet 10 mg PO HS 09/28/19 05/06/23 fluoxetine 10 mg capsule (Prozac) 30 mg PO DAILY 08/11/20 05/06/23 lorazepam 0.5 mg tablet 0.5 mg PO HS 08/11/20 05/06/23 lamotrigine 150 mg tablet 150 mg PO BID 05/06/23 05/06/23 levothyroxine 75 mcg tablet 75 mcg PO QAM 05/06/23 05/06/23 paliperidone palmitate 234 mg/1.5 234 mg IM .MONTH 05/06/23 05/06/23 mL intramuscular syringe (Invega Sustenna) Results & Data (ED) Vital Signs Vital Signs - 24 hr 05/06/23 17:55 05/06/23 18:11 05/06/23 18:25 Temperature 37.2 C Temperature Source Oral Pulse Rate 126 H 126 H 115 H Respiratory Rate 20 Respiratory Effort / Characteristics Non-Labored Respiratory Depth Normal Respiratory Pattern Regular Blood Pressure 141/103 H Blood Pressure Mean 115 Pulse Oximetry 93 93 Oxygen Delivery Method Room Air Room Air Sepsis Recent Fever Within 48 Hours No Sepsis New/Unexplained Change in Mental Status N/A Sepsis Action Taken by Nursing No Action Required 05/06/23 19:00 05/06/23 19:30 05/06/23 20:36 Temperature Temperature Source Pulse Rate 106 H 104 H 87 Respiratory Rate 24 20 23 Respiratory Effort / Characteristics Respiratory Depth Respiratory Pattern Blood Pressure 141/80 H 164/98 H 138/85 Blood Pressure Mean 100 120 102 Pulse Oximetry 98 94 98 Oxygen Delivery Method Room Air Room Air Room Air Sepsis Recent Fever Within 48 Hours Sepsis New/Unexplained Change in Mental Status Sepsis Action Taken by Nursing 05/06/23 21:00 05/06/23 21:30 05/06/23 22:00 Temperature Temperature Source Pulse Rate 79 82 76 Respiratory Rate 23 22 20 Respiratory Effort / Characteristics Respiratory Depth Respiratory Pattern Blood Pressure 143/91 H 152/93 H 140/86 Blood Pressure Mean 108 112 104 Pulse Oximetry 97 100 98 Oxygen Delivery Method Room Air Room Air Room Air Sepsis Recent Fever Within 48 Hours Sepsis New/Unexplained Change in Mental Status Sepsis Action Taken by Nursing 05/06/23 22:14 05/06/23 22:30 Temperature Temperature Source Pulse Rate 77 76 Respiratory Rate 22 Respiratory Effort / Characteristics Respiratory Depth Respiratory Pattern Blood Pressure 142/95 H Blood Pressure Mean 110 Pulse Oximetry 97 Oxygen Delivery Method Room Air Sepsis Recent Fever Within 48 Hours Sepsis New/Unexplained Change in Mental Status Sepsis Action Taken by Nursing Laboratory Data 05/06/23 18:00 05/06/23 18:00 Lab Results 05/06/23 05/06/23 05/06/23 Range/Units 18:00 19:48 20:37 WBC 7.46 (4.8-10.8) K/ul RBC 5.03 (4.20-5.40) M/uL Hgb 14.5 (12.0-16.0) g/dl Hct 43.7 (37.0-47.0) % MCV 86.9 (80.0-100.0) fL MCH 28.8 (25.0-34.0) pg MCHC 33.2 (32.0-36.0) g/dL RDW Std Deviation 38.8 (36.4-46.3) fL RDW Coeff of Patt 12.1 (11.5-14.5) % Plt Count 213 (130-400) K/uL MPV 10.8 (9.4-12.4) fL Immature Gran % (Auto) 0.5 % Neut % (Auto) 70.5 % Lymph % (Auto) 19.4 % Claiborne % (Auto) 9.1 % Eos % (Auto) 0.1 % Baso % (Auto) 0.4 % Neut # (Auto) 5.25 (1.40-6.50) K/uL Lymph # (Auto) 1.45 (1.20-3.40) K/uL Claiborne # (Auto) 0.68 H (0.11-0.59) K/uL Eos # (Auto) 0.01 (0.00-0.50) K/uL Baso # (Auto) 0.03 (0.00-0.20) K/uL Immature Gran # (Auto) 0.04 (0.01-0.20) K/uL Sodium 135 L (136-145) mmol/L Potassium 3.4 L (3.5-5.1) mmol/L Chloride 101 (98-107) mmol/L Carbon Dioxide 22 (21-32) mmol/L Anion Gap 12 H (3-11) BUN 13 (6-23) mg/dl Creatinine 1.10 (0.6-1.2) mg/dl Est Cr Clr Drug Dosing 71.1 ml/min Est GFR ( Amer) 69.2 ml/min Est GFR (Non-Af Amer) 59.7 ml/min BUN/Creatinine Ratio 11.8 (10-20) Glucose 149 H (70-99(Fasting)) mg/dl Lactate 1.4 (0.4-2.0) mmol/L Calcium 9.7 (8.6-10.3) mg/dl Magnesium 1.7 (1.7-2.4) mg/dl Total Bilirubin 0.3 (0.2-1.0) mg/dl AST 16 (13-39) U/L ALT 18 (7-52) U/L Alkaline Phosphatase 99 (34-104) U/L Total Creatine Kinase 83 (26-192) U/L Troponin I High Sens 10.0 (0-14) pg/ml Total Protein 7.6 (6.0-8.3) gm/dl Albumin 4.2 (3.4-5.0) gm/dl Globulin 3.4 (2.5-4.0) gm/dl Albumin/Globulin Ratio 1.2 (0.9-2) Procalcitonin < 0.05 (0-0.5) ng/ml Urine Color Yellow Urine Appearance Clear (Clear) Urine pH 5.5 (4.5-7.5) Ur Specific Winner 1.012 (1.000-1.030) Urine Protein 1+ H (Negative) Urine Glucose (UA) Negative (Negative) Urine Ketones 1+ H (Negative) Urine Blood Negative (Negative) Urine Nitrite Negative (Negative) Urine Bilirubin Negative (Negative) Urine Urobilinogen Negative (Negative) Ur Leukocyte Esterase Negative (Negative) Urine WBC (Auto) 0 (0-5) /hpf Urine RBC (Auto) 0-4 (0-4) /hpf U Hyaline Cast (Auto) 1-5 (0-5) /lpf U Epithel Cells (Auto) 0-5 (0-5) /lpf Urine Bacteria (Auto) Negative (Negative) Nasal Influ A H1 2009 PCR DETECTED A* (NotDetected) Adenovirus (PCR) Not Detected (NotDetected) B. pertussis DNA (PCR) Not Detected (NotDetected) B.parapertussis DNA PCR Not Detected (NotDetected) C. pneumoniae DNA (PCR) Not Detected (NotDetected) Coronavirus OC43 (PCR) Not Detected (NotDetected) Coronavirus HKU1 (PCR) Not Detected (NotDetected) Coronavirus 229E (PCR) Not Detected (NotDetected) SARS-CoV-2 (PCR) Not Detected (NotDetected) Coronavirus NL63 (PCR) Not Detected (NotDetected) Human Metapneumovir PCR Not Detected (NotDetected) Influenza Type B (PCR) Not Detected (NotDetected) M. pneumoniae (PCR) Not Detected (NotDetected) Parainfluenza 1 (PCR) Not Detected (NotDetected) Parainfluenza 2 (PCR) Not Detected (NotDetected) Parainfluenza 3 (PCR) Not Detected (NotDetected) Parainfluenza 4 (PCR) Not Detected (NotDetected) RSV (PCR) Not Detected (NotDetected) Entero/Rhino (PCR) Not Detected (NotDetected) Administered Medications Discontinued Medications Sodium Chloride (Nss) 1,000 mls @ 999 mls/hr IV .Q1H1M ONE Stop: 05/06/23 20:39 Last Infusion: 05/06/23 21:56 Dose: Infused Documented By: [facility] Admin: 05/06/23 20:26 Dose: 999 mls/hr Documented By: [facility] Imaging Data Radiologist's Impression: Cervical Spine CT 05/06/23 19:38 Exam(s): CT C SPINE EXAM: CT Cervical Spine Without Intravenous Contrast CLINICAL HISTORY: Reason for exam: fall from standing. TECHNIQUE: Axial computed tomography images of the cervical spine without intravenous contrast. Automated exposure control was utilized for the study. A dose lowering technique was utilized adhering to the principles of ALARA. COMPARISON: No relevant prior studies available. FINDINGS: The vertebral body heights are maintained. The craniocervical junction is intact. The atlanto-dens interval is maintained. The dens is intact. There is no spondylolisthesis. Multilevel cervical spondylosis and degenerative disc disease. Straightening of the cervical lordosis. The unenhanced neck soft tissues are grossly unremarkable. The visualized lung apices are grossly clear. IMPRESSION: No acute fracture or subluxation of the cervical spine. Electronically signed by: Steven Frey MD 05/06/23 20:[address] 05/06/23 19:38 Exam(s): CT HEAD Without Contrast EXAM: CT Head Without Intravenous Contrast CLINICAL HISTORY: Reason for exam: seizure like activity; fall from standing. TECHNIQUE: Axial computed tomography images of the head/brain without intravenous contrast. Automated exposure control was utilized for the study. A dose lowering technique was utilized adhering to the principles of ALARA. COMPARISON: September 28, 2019 FINDINGS: No acute intracranial hemorrhage. No midline shift or mass effect. The territorial do-white matter differentiation is maintained throughout. Dilated third ventricle, which measures 3.2 cm medial-lateral. Stable when compared to September 28, 2019. Stable cavum vellum interpositum. Age-related cerebral volume loss. Periventricular and subcortical white matter hypoattenuation, consistent with chronic microangiopathy. The visualized orbits appear grossly unremarkable. The calvarium is intact. The visualized paranasal sinuses and mastoid air cells are grossly clear. IMPRESSION: No acute intracranial hemorrhage, midline shift, or mass effect. Dilated third ventricle, which measures 3.2 cm medial-lateral. Stable when compared to September 28, 2019. Stable cavum vellum interpositum. Electronically signed by: Steven Frey MD 05/06/23 20:32 PM Discharge Plan Visit Data Chief Complaint: Seizure ED Provider: Veronica Anguiano Discharge Problem: Seizure-like activity, Influenza A Patient Disposition: Home - Self-Care Discharge Instructions Krames/Other Patient Handouts: ED Influenza (Adult), ED [facility] Seizure Activity Restrictions/Additional Instructions: Your workup in the emergency department today was negative for any acute pathology. You did test positive for influenza A. Recommend you wear a mask and quarantine for the next 5 days. Recommend you do not miss any of your Lamictal dosing. Please return to the emergency department if you have any further seizures, chest pain or shortness of breath, lightheadedness or dizziness, shortness of breath, or any new or worsening symptoms. Forms Stand Alone Forms: My [facility] [address], Important Visit Information Prescriptions Prescriptions: No Action lorazepam 0.5 mg tablet 0.5 mg PO HS fluoxetine [Prozac] 10 mg capsule 30 mg PO DAILY atorvastatin 10 mg tablet 10 mg PO HS lamotrigine 150 mg tablet 150 mg PO BID levothyroxine 75 mcg tablet 75 mcg PO QAM Invega Sustenna 234 mg/1.5 mL syringe 234 mg IM .MONTH Referrals Referrals: Katherine Dumont MD [Primary Care Provider] -
[2023-05-06 20:05] LABS: Magnesium 1.7 mg/dl (1.7-2.4)
[2023-05-06] MEDS: SODIUM CHLORIDE 0.9% 1,000 ML IV ONE (20:26)
--- NOTE | 2023-05-06 20:33 | CT Scan Report ---
Exam(s): CT HEAD Without Contrast EXAM: CT Head Without Intravenous Contrast CLINICAL HISTORY: Reason for exam: seizure like activity; fall from standing. TECHNIQUE: Axial computed tomography images of the head/brain without intravenous contrast. Automated exposure control was utilized for the study. A dose lowering technique was utilized adhering to the principles of ALARA. COMPARISON: September 28, 2019 FINDINGS: No acute intracranial hemorrhage. No midline shift or mass effect. The territorial do-white matter differentiation is maintained throughout. Dilated third ventricle, which measures 3.2 cm medial-lateral. Stable when compared to September 28, 2019. Stable cavum vellum interpositum. Age-related cerebral volume loss. Periventricular and subcortical white matter hypoattenuation, consistent with chronic microangiopathy. The visualized orbits appear grossly unremarkable. The calvarium is intact. The visualized paranasal sinuses and mastoid air cells are grossly clear. IMPRESSION: No acute intracranial hemorrhage, midline shift, or mass effect. Dilated third ventricle, which measures 3.2 cm medial-lateral. Stable when compared to September 28, 2019. Stable cavum vellum interpositum. Electronically signed by: Steven Frey MD 05/06/23 20:32 PM
--- NOTE | 2023-05-06 20:37 | CT Scan Report ---
Exam(s): CT C SPINE EXAM: CT Cervical Spine Without Intravenous Contrast CLINICAL HISTORY: Reason for exam: fall from standing. TECHNIQUE: Axial computed tomography images of the cervical spine without intravenous contrast. Automated exposure control was utilized for the study. A dose lowering technique was utilized adhering to the principles of ALARA. COMPARISON: No relevant prior studies available. FINDINGS: The vertebral body heights are maintained. The craniocervical junction is intact. The atlanto-dens interval is maintained. The dens is intact. There is no spondylolisthesis. Multilevel cervical spondylosis and degenerative disc disease. Straightening of the cervical lordosis. The unenhanced neck soft tissues are grossly unremarkable. The visualized lung apices are grossly clear. IMPRESSION: No acute fracture or subluxation of the cervical spine. Electronically signed by: Steven Frey MD 05/06/23 20:36 PM
[2023-05-06 20:55] LABS: Adenovirus PCR Not Detected (NotDetected); Bordetella parapertussis PCR Not Detected (NotDetected); Bordetella pertussis PCR Not Detected (NotDetected); Chlamydia pneumoniae PCR Not Detected (NotDetected); Coronavirus 229E PCR Not Detected (NotDetected); Coronavirus CoV-2 (COVID19)PCR Not Detected (NotDetected); Coronavirus HKU1 PCR Not Detected (NotDetected); Coronavirus NL63 PCR Not Detected (NotDetected); Coronavirus OC43PCR Not Detected (NotDetected); Human Metapneumovirus PCR Not Detected (NotDetected); Influenza B PCR Not Detected (NotDetected); Mycoplasma pneumoniae PCR Not Detected (NotDetected); Parainfluenza Virus 1 PCR Not Detected (NotDetected); Parainfluenza Virus 2 PCR Not Detected (NotDetected); Parainfluenza Virus 3 PCR Not Detected (NotDetected); Parainfluenza Virus 4 PCR Not Detected (NotDetected); Respiratory Syncytial VirusPCR Not Detected (NotDetected); Rhinovirus/Enterovirus PCR Not Detected (NotDetected)
[2023-05-06 20:56] LABS: Appearance Urine Clear (Clear); Bacteria Urine Automated Negative (Negative); Bilirubin Urine Negative (Negative); Blood Urine Negative (Negative); Color Urine Yellow; Epithelial Cell Urine Auto 0-5 /lpf (0-5); Glucose Urine UA Negative (Negative); Ketones Urine 1+ (Negative); Leukocyte Esterase Urine Negative (Negative); Nitrite Urine Negative (Negative); Protein Urine 1+ (Negative); RBC Urine Automated 0-4 /hpf (0-4); Specific Gravity Urine 1.012 (1.000-1.030); Urobilinogen Urine Negative (Negative); WBC Urine Automated 0 /hpf (0-5); pH Urine 5.5 (4.5-7.5)
[2023-05-06 20:58] LABS: Influenza A (H1 2009) PCR DETECTED (NotDetected)
--- NOTE | 2023-05-07 02:34 | History & Physical Report ---
Date of Service May 07, 2023 Assessment & Plan (1) Seizure-like activity: Plan: 48-year-old female with past med history significant for hypothyroidism, hyperlipidemia, hyperprolactinemia, obesity, gastroparesis, irritable bowel syndrome with diarrhea, GERD, stage III chronic disease, history of epilepsy, history of depression, history of undifferentiated schizophrenia, mild intellectual disability was not brought in because of seizure episode. Patient was at a group concert when she fell down and and witness seizures for around 1 minute. Seems she missed her last night dose of Lamictal. In ER patient seemed to came back to her usual self and planned to discharging her and mother was okay with it but then again patient became somewhat confused and mother was worried. Patient lives alone. Can cook food and take care of herself. Boqii checks on her regularly as per mother. Since last she is having some cough ,sore throat and congestion. She tested positive for flu in the ER. Denies any fevers. Patient currently only staring and not answering any questions. Just once she answered no for fever. As per mother sometimes she does not talk. Hemodynamically stable. Currently could not get any history. Seizure-like activity Seems missed her Lamictal dose Currently seems to be postictal Will place on IV Ativan as needed for breakthrough seizures Continue home medications Seizure precautions CT head no acute findings. Stable dilated right ventricle.Stable cavum vellum interpositum. Follow-EEG Neuro consult in a.m. Influenza positive Symptoms had for last few days Tamiflu Droplet precautions Supportive care Hyperlipidemia On statin Hypothyroidism On Synthyroid Depression On fluoxetine History of undifferentiated schizophrenia On IM Invega Sustenna Mother wanted psychiatry consult as patient seems to having hallucinations. DVT prophylaxis Lovenox Disposition Telemetry floor Full code History of Present Illness Chief Complaint: Seizures Primary Care Provider: Katherine Dumont MD 48-year-old female with past med history significant for hypothyroidism, hyperlipidemia, hyperprolactinemia, obesity, gastroparesis, irritable bowel syndrome with diarrhea, GERD, stage III chronic disease, history of epilepsy, history of depression, history of undifferentiated schizophrenia, mild intellectual disability was brought in because of seizure episode. Patient was at a group concert when she fell down and and witness seizures for around 1 minute. Seems she missed her last night dose of Lamictal. In ER patient seemed to came back to her usual self and planned to discharging her and mother was okay with it but then again patient became somewhat confused and mother was worried. Patient lives alone. Can cook food and take care of herself. Boqii checks on her regularly as per mother. Since last she is having some cough ,sore throat and congestion. She tested positive for flu in the ER. Denies any fevers. Patient currently only staring and not answering any questions. Just once she answered no for fever. As per mother sometimes she does not talk. Hemodynamically stable. Currently could not get any history. Past medical history. As mentioned above Past surgical history. Left breast recent excision. Colonoscopy. EGD with biopsy. Laparoscopic cholecystectomy. Ligation of oviducts. Social history. Lives alone. No smoking. Alcohol occasional. No drug use. Family history. Paternal aunt had breast cancer. Paternal cousin had breast cancer. Paternal grandfather had colon cancer. Aunt has diabetes. Allergies Allergy/AdvReac Type Severity Reaction Status Date / Time No Known Allergies Allergy Unknown Verified 05/06/23 23:03 Home Medications Medication Instructions Recorded Confirmed Type atorvastatin 10 mg tablet 10 mg PO HS 09/28/19 05/06/23 History fluoxetine 10 mg capsule (Prozac) 30 mg PO DAILY 08/11/20 05/06/23 History lorazepam 0.5 mg tablet 0.5 mg PO HS 08/11/20 05/06/23 History lamotrigine 150 mg tablet 150 mg PO BID 05/06/23 05/06/23 History levothyroxine 75 mcg tablet 75 mcg PO QAM 05/06/23 05/06/23 History paliperidone palmitate 234 mg/1.5 234 mg IM .MONTH 05/06/23 05/06/23 History mL intramuscular syringe (Invega Sustenna) Past Med/Surg History Medical History (Updated 05/06/23 @ 23:33 by Veronica Anguiano MD) Psychosis Seizure-like activity Family history non-contributory Acute UTI (urinary tract infection) Schizoaffective disorder Surgical History (Updated 08/11/20 @ 11:06 by Chelsea Cruz) H/O tubal ligation No pertinent past surgical history Family History (Updated 08/11/20 @ 11:07 by Chelsea Cruz) Father Prostate cancer Denies family history of Ovarian cancer Myocardial infarction Breast cancer Colorectal cancer Social History (Updated 08/11/20 @ 11:10 by Chelsea Cruz) Smoking Status: Never smoker Second Hand Exposure: No; Do You Dip or Chew Tobacco: No; Hx Alcohol Use: No Hx Substance Use: No Preferred Language: Yakut Communication Ability: Effective Return Agent Airport Required: No Beliefs That Will Affect Care: None marital status: Single Current Living Situation: Alone Current Living Situation Comment: [employer] checks in daily current occupational status: employed How many Children do You have: 0 Feels Safe at Home: Yes Safety Concerns: Feels Safe At This Time caffeine: No Dental Care, Regularly: Yes Physical Activity Frequency: 3-4 Times per Week Seatbelt Use: always Sunscreen Use: Yes Assistive Devices: None Review of Systems Review of Systems: Other Physical Exam Physical Exam: General- Not in distress. Head- atraumatic Eyes- PERRL. ENT- oropharynx clear Neck- supple, no JVD. Lungs- clear to auscultation no wheezing or crackles. Heart- regular rhythm; no murmur, no gallop. Abdomen- normal bowel sounds, soft, nontender, no distension. Extremities- no pretibial edema, no erythema seen. Neuro- alert, and awake, not answering questions.; PERRL, no facial palsy;moves extremities. Results & Data Results & Data Vital Signs (Past 12 Hours) Vital Signs Temp Pulse Resp BP Pulse Ox O2 Del Method 05/07/23 02:13 73 05/07/23 01:57 85 20 140/81 98 Room Air 05/06/23 22:30 76 22 142/95 H 97 Room Air 05/06/23 22:14 77 05/06/23 22:00 76 20 140/86 98 Room Air 05/06/23 21:30 82 22 152/93 H 100 Room Air 05/06/23 21:00 79 23 143/91 H 97 Room Air 05/06/23 20:36 87 23 138/85 98 Room Air 05/06/23 19:30 104 H 20 164/98 H 94 Room Air 05/06/23 19:00 106 H 24 141/80 H 98 Room Air 05/06/23 18:25 115 H 05/06/23 18:11 126 H 93 Room Air 05/06/23 17:55 37.2 C 126 H 20 141/103 H 93 Room Air Diagnostic Findings Laboratory Results WBC 7.46 K/ul (4.8-10.8) 02/05/24 18:00 RBC 5.03 M/uL (4.20-5.40) 05/06/23 18:00 Hgb 14.5 g/dl (12.0-16.0) 05/06/23 18:00 Hct 43.7 % (37.0-47.0) 05/06/23 18:00 MCV 86.9 fL (80.0-100.0) 05/06/23 18:00 MCH 28.8 pg (25.0-34.0) 05/06/23 18:00 MCHC 33.2 g/dL (32.0-36.0) 05/06/23 18:00 RDW Std Deviation 38.8 fL (36.4-46.3) 05/06/23 18:00 RDW Coeff of Patt 12.1 % (11.5-14.5) 05/06/23 18:00 Plt Count 213 K/uL (130-400) 05/06/23 18:00 MPV 10.8 fL (9.4-12.4) 05/06/23 18:00 Immature Gran % (Auto) 0.5 % 05/06/23 18:00 Neut % (Auto) 70.5 % 05/06/23 18:00 Lymph % (Auto) 19.4 % 05/06/23 18:00 [place] % (Auto) 9.1 % 05/06/23 18:00 Eos % (Auto) 0.1 % 05/06/23 18:00 Baso % (Auto) 0.4 % 05/06/23 18:00 Neut # (Auto) 5.25 K/uL (1.40-6.50) 05/06/23 18:00 Lymph # (Auto) 1.45 K/uL (1.20-3.40) 05/06/23 18:00 [place] # (Auto) 0.68 K/uL (0.11-0.59) H 05/06/23 18:00 Eos # (Auto) 0.01 K/uL (0.00-0.50) 05/06/23 18:00 Baso # (Auto) 0.03 K/uL (0.00-0.20) 05/06/23 18:00 Immature Gran # (Auto) 0.04 K/uL (0.01-0.20) 05/06/23 18:00 Sodium 135 mmol/L (136-145) L 05/06/23 18:00 Potassium 3.4 mmol/L (3.5-5.1) L 05/06/23 18:00 Chloride 101 mmol/L (98-107) 05/06/23 18:00 Carbon Dioxide 22 mmol/L (21-32) 05/06/23 18:00 Anion Gap 12 (3-11) H 05/06/23 18:00 BUN 13 mg/dl (6-23) 05/06/23 18:00 Creatinine 1.10 mg/dl (0.6-1.2) 05/06/23 18:00 Est Cr Clr Drug Dosing 71.1 ml/min 05/06/23 18:00 Est GFR ( Amer) 69.2 ml/min 05/06/23 18:00 Est GFR (Non-Af Amer) 59.7 ml/min 05/06/23 18:00 BUN/Creatinine Ratio 11.8 (10-20) 05/06/23 18:00 Glucose 149 mg/dl (70-99(Fasting)) H 05/06/23 18:00 Lactate 1.4 mmol/L (0.4-2.0) 05/06/23 19:48 Calcium 9.7 mg/dl (8.6-10.3) 05/06/23 18:00 Magnesium 1.7 mg/dl (1.7-2.4) 05/06/23 18:00 Total Bilirubin 0.3 mg/dl (0.2-1.0) 05/06/23 18:00 AST 16 U/L (13-39) 05/06/23 18:00 ALT 18 U/L (7-52) 05/06/23 18:00 Alkaline Phosphatase 99 U/L (34-104) 05/06/23 18:00 Total Creatine Kinase 83 U/L (26-192) 05/06/23 18:00 Troponin I High Sens 10.0 pg/ml (0-14) 05/06/23 18:00 Total Protein 7.6 gm/dl (6.0-8.3) 05/06/23 18:00 Albumin 4.2 gm/dl (3.4-5.0) 05/06/23 18:00 Globulin 3.4 gm/dl (2.5-4.0) 05/06/23 18:00 Albumin/Globulin Ratio 1.2 (0.9-2) 05/06/23 18:00 Procalcitonin < 0.05 ng/ml (0-0.5) 05/06/23 19:48 Urine Color Yellow 05/06/23 20:37 Urine Appearance Clear (Clear) 05/06/23 20:37 Urine pH 5.5 (4.5-7.5) 05/06/23 20:37 Ur Specific [place] 1.012 (1.000-1.030) 05/06/23 20:37 Urine Protein 1+ (Negative) H 05/06/23 20:37 Urine Glucose (UA) Negative (Negative) 05/06/23 20:37 Urine Ketones 1+ (Negative) H 05/06/23 20:37 Urine Blood Negative (Negative) 05/06/23 20:37 Urine Nitrite Negative (Negative) 05/06/23 20:37 Urine Bilirubin Negative (Negative) 05/06/23 20:37 Urine Urobilinogen Negative (Negative) 05/06/23 20:37 Ur Leukocyte Esterase Negative (Negative) 05/06/23 20:37 Urine WBC (Auto) 0 /hpf (0-5) 05/06/23 20:37 Urine RBC (Auto) 0-4 /hpf (0-4) 05/06/23 20:37 U Hyaline Cast (Auto) 1-5 /lpf (0-5) 05/06/23 20:37 U Epithel Cells (Auto) 0-5 /lpf (0-5) 05/06/23 20:37 Urine Bacteria (Auto) Negative (Negative) 05/06/23 20:37 Nasal Influ A H1 2009 PCR DETECTED (NotDetected) A* 05/06/23 19:48 Adenovirus (PCR) Not Detected (NotDetected) 05/06/23 19:48 B. pertussis DNA (PCR) Not Detected (NotDetected) 05/06/23 19:48 B.parapertussis DNA PCR Not Detected (NotDetected) 05/06/23 19:48 C. pneumoniae DNA (PCR) Not Detected (NotDetected) 05/06/23 19:48 Coronavirus OC43 (PCR) Not Detected (NotDetected) 05/06/23 19:48 Coronavirus HKU1 (PCR) Not Detected (NotDetected) 05/06/23 19:48 Coronavirus 229E (PCR) Not Detected (NotDetected) 05/06/23 19:48 SARS-CoV-2 (PCR) Not Detected (NotDetected) 05/06/23 19:48 Coronavirus NL63 (PCR) Not Detected (NotDetected) 05/06/23 19:48 Human Metapneumovir PCR Not Detected (NotDetected) 05/06/23 19:48 Influenza Type B (PCR) Not Detected (NotDetected) 05/06/23 19:48 M. pneumoniae (PCR) Not Detected (NotDetected) 05/06/23 19:48 Parainfluenza 1 (PCR) Not Detected (NotDetected) 05/06/23 19:48 Parainfluenza 2 (PCR) Not Detected (NotDetected) 05/06/23 19:48 Parainfluenza 3 (PCR) Not Detected (NotDetected) 05/06/23 19:48 Parainfluenza 4 (PCR) Not Detected (NotDetected) 05/06/23 19:48 RSV (PCR) Not Detected (NotDetected) 05/06/23 19:48 Entero/Rhino (PCR) Not Detected (NotDetected) 05/06/23 19:[address] 05/06/23 19:38 Exam(s): CT C SPINE EXAM: CT Cervical Spine Without Intravenous Contrast CLINICAL HISTORY: Reason for exam: fall from standing. TECHNIQUE: Axial computed tomography images of the cervical spine without intravenous contrast. Automated exposure control was utilized for the study. A dose lowering technique was utilized adhering to the principles of ALARA. COMPARISON: No relevant prior studies available. FINDINGS: The vertebral body heights are maintained. The craniocervical junction is intact. The atlanto-dens interval is maintained. The dens is intact. There is no spondylolisthesis. Multilevel cervical spondylosis and degenerative disc disease. Straightening of the cervical lordosis. The unenhanced neck soft tissues are grossly unremarkable. The visualized lung apices are grossly clear. IMPRESSION: No acute fracture or subluxation of the cervical spine. Electronically signed by: Steven Frey MD 05/06/23 20:[address] 05/06/23 19:38 Exam(s): CT HEAD Without Contrast EXAM: CT Head Without Intravenous Contrast CLINICAL HISTORY: Reason for exam: seizure like activity; fall from standing. TECHNIQUE: Axial computed tomography images of the head/brain without intravenous contrast. Automated exposure control was utilized for the study. A dose lowering technique was utilized adhering to the principles of ALARA. COMPARISON: September 28, 2019 FINDINGS: No acute intracranial hemorrhage. No midline shift or mass effect. The territorial od-white matter differentiation is maintained throughout. Dilated third ventricle, which measures 3.2 cm medial-lateral. Stable when compared to September 28, 2019. Stable cavum vellum interpositum. Age-related cerebral volume loss. Periventricular and subcortical white matter hypoattenuation, consistent with chronic microangiopathy. The visualized orbits appear grossly unremarkable. The calvarium is intact. The visualized paranasal sinuses and mastoid air cells are grossly clear. IMPRESSION: No acute intracranial hemorrhage, midline shift, or mass effect. Dilated third ventricle, which measures 3.2 cm medial-lateral. Stable when compared to September 28, 2019. Stable cavum vellum interpositum. Electronically signed by: Steven Frey MD 05/06/23 20:32 PM ECG Additional Comments: ECG. Sinus tachycardia rate of 110. Possible left atrial enlargement. Nonspecific ST wave abnormality. Code Status & VTE Plan VTE Prophylaxis Plan VTE Prophylaxis will be ordered: Yes
[2023-05-07] MEDS ORDERED: POLYETHYLENE (MIRALAX) 17 GM PACK PO PRN (03:49)
[2023-05-07] MEDS ORDERED: NITROGLYCERIN SL 0.4 MG/TAB TAB SL PRN (03:49)
[2023-05-07] MEDS ORDERED: LORazepam 1.5 MG in SYRINGE 0.75 ML IV PRN (03:49)
[2023-05-07] MEDS ORDERED: ACETAMINOPHEN 325 MG TAB PO PRN (03:49)
--- OUTSIDE RECORDS SUMMARY | 2023-05-07 04:34 | External Medical Summary | Summary of Care ---
Author Name Unknown Organization [facility] Address [address] [place] [address] Phone [phone] Care Team Providers Care Straddle Bug Operator Name Role Phone Katherine Dumont MD Primary Care Provider [phone] Reason for Visit * Reason Comments eRx-Medication Refill Encounter Details Date Type Department Care Team (Late st Contact Info) Description 04/02/2023 Refill Neurology [facility] [place] [address] [place] [address] Qing Jose MD [address] [place] [address] Allergies No known active allergiesdocumented as of this encounter (statuses as of 04/04/2023) Medications Medication Sig Dispensed Refills Start Date End Date Status ACETAMINOPHEN 500 MG PO TABSIndications:Romelia ulder joint pain 1pill by mouth every 8 hours for 2 weeks then as needed for pain 100 Tab 0 03/22/2014 Active Invega Sustenna 234 MG/1.5ML Intramuscular Suspension Prefilled Syringe Inject 234 mg into a large muscle every 4 weeks. 0 11/25/2019 Active FLUoxetine HCl 10 MG Oral Capsule (PROzac) Take 3 Capsules by mouth in the morning. 0 02/29/2020 Active LORazepam 0.5 MG Oral Tablet (ATIVAN) Take 1 Tablet by mouth at bedtime. 0 03/06/2020 Active Ondansetron HCl 4 MG Oral Tablet (Zofran)Indications :Nausea and vomiting, intractability of vomiting not specified, unspecified vomiting type Take 1 Tab by mouth every 6 hours as needed for Nausea. 30 Tab 0 09/12/2020 Active Omeprazole 20 MG Oral Capsule Delayed Release (PriLOSEC)Indicatio ns:Gastroesophageal reflux disease without esophagitis Take 1 Cap by mouth daily. 1 hour before the first meal of the day 30 Cap 1 12/16/2020 Active AmLactin Foot Cream Therapy External CreamIndications:Dr sidhu skin Apply to affected areas twice daily till it heals. 1 g 0 06/05/2022 Active Atorvastatin Calcium 10 MG Oral Tablet (Lipitor)Indication s:Hyperlipidemia with target LDL less than 100 take 1 tablet by mouth once daily 90 Tablet 2 12/03/2022 Active Levothyroxine Sodium 75 MCG Oral Tablet (Levoxyl)Indication s:Acquired hypothyroidism Take 1 Tablet by mouth in the morning. (at least 30 min prior to breakfast or other meds). 90 Tablet 3 03/04/2023 Active Vitamin D (Cholecalciferol) 25 MCG (1000 UT) Oral CapsuleIndications: Vitamin D deficiency Take 1 Capsule by mouth every evening. 90 Capsule 1 03/04/2023 Active lamoTRIgine 150 MG Oral Tablet (LaMICtal) TAKE 1 TABLET BY MOUTH TWICE A DAY 60 Tablet 5 04/04/2023 Active lamoTRIgine 150 MG Oral Tablet (LaMICtal) 1 twice a day 60 Tablet 5 10/07/2022 04/04/19 24 Discontinued Hospital, Clinic, or Other Facility Administered Medication Ordered Dose Route Frequency Start Date End Date Status paliperidone palmitate ER (Invega Sustenna) inj 234 mgIndications:Undifferentiate d schizophrenia (HCC) 234 mg IM [id number] 12/15/2020 Act risa documented as of this encounter (statuses as of 04/04/2023) Active Problems Problem Noted Date Diagnosed Date Severe obesity with body mas s index (BMI) of 35.0 to 39.9 with serious comorbidity 08/21/2022 Food insecurity 11/07/2020 Overview: Per [facility] Protocol Hyperprolactinemia 10/04/2020 Stage 3a chronic kidney disease 02/08/2020 Overview: Per CKD protocol Hyperlipidemia with target LDL less than 100 Overview: ICD-10 update of inactive term Gastroesophageal reflux disease without esophagi tis 06/11/2011 Mild intellectual disability 03/10/2009 Irritable bowel syndrome with diarrhea 7 Gastroparesis 05/13/2006 EPILEPSY;NONCONV,W/O INTRACTABLE 05/07/2006 Acquired hypothyroidism 06/29/2004 Recurrent major depressive disorder, in partial remission 06/29/2004 Undifferentiated schizophrenia documented as of this encounter (statuses as of 04/04/2023) Resolved Problems Problem Noted Date Diagnosed Date Resolved Date Body mass index (BMI) of 40. 0 to 44.9 in adult 04/09/2022 08/21/2022 Overview: Per Obesity protocol Prediabetes 09/11/2021 09/13/2022 Overview: Per Prediabetes protocol Kidney disease, chronic, sta ge III (GFR 30-59 ml/min) 03/17/2013 02/11/2020 Overview: Per CKD protocol Cholelithiasis 01/11/2012 02/11/2012 CKD (chronic kidney disease) stage 3, GFR 30-59 ml/min 06/17/2014 documented as of this encounter (statuses as of 04/04/2023) Immunizations Name Administration Dates Next Due COVID-19 mRNA, LNP-s, No Pre serve, 2-Dose Series (Moderna) 07/23/2020,06/24/2020 COVID-19, mRNA, LNP-s, PF, B ooster, 100mcg/0.5mg (Moderna) 04/06/2021 Hepatitis B, 20+ yrs 04/14/2014,11/12/2013,10/08 PPD 03/01/2023,,11/25/2019,07/15,08/10/2015,06/30/2013,05/29/2011 ,04/06/2009 Pneumococcal Polysaccharide PPV23 (Pneumovax) 03/22/2014 Seasonal Influenza Virus Vac cine, Unspecified Formulation 01/13/2020,03/17/2019,12/17/2017,02/07,11/15/2014,01/05/2014,12/28/2011 ,12/26/2011,03/12/2011,01/25/2010,03/03 Seasonal Influenza, PF, 6 M & above, IM , (FluLaval or Fluzone) 03/01/2023,01/13/2020,03/17/2019,12/17,02/07/2017 Seasonal Influenza, Split, I IV3, With Preserve, Inj 11/15/2014,01/05/2014,12/28/2011,12/25,03/12/2011,01/25/2010,03/30/2009 TDAP (age 10 and older)(Boostrix) 11/15/2014 TDAP (age 11 and older)(Adacel) 11/15/2014,03/10 documented as of this encounter Social History Tobacco Use Types Packs/Day Years Used Date Smoking Tobacco: Never Smokeless Tobacco: Never Alcohol Use Standard Drinks/Week Comments Yes 0 (1 standard drink = 0.6 oz pur e alcohol) occasional PHQ-2 Answer Date Recorded PHQ-2 Score 0 05/20/2018 Hunger Vital Sign Answer Date Recorded Worried About Running Out of Food in the Last Ye ar Often true 03/17/2019 Ran Out of Food in the Last Year Often true 03/17/2019 Sex and Gender Information Value Date Recorded Sex Assigned at Not on file Gender Identity Not on file Sexual Orientation Not on file Job Start Date Occupation Industry Not on file Not on file Not on file documented as of this encounter Miscellaneous Notes * Telephone Encounter - Samuel Haile RPh - 04/04/2023 12:45 PM ESTSigned Prescriptions: Disp Refills lamoTRIgine 150 MG Oral Tablet (LaMICtal) 60 Tab*5 Sig: TAKE 1 TABLET BY MOUTH TWICE A DAYAuthorizing Provider: QING JOSE User: SAMUEL HAILE----- * Telephone Encounter - Gilberto Bradyvince sandra - 04/03/2023 1:49 PM ESTPending Prescriptions: Disp Refills lamoTRIgine 150 MG Oral Tablet [Pharmacy M*60 Tab*5 Sig: TAKE 1 TABLET BY MOUTH TWICE A DAY * Telephone Encounter - Jose Antonio Cassie sandra - 04/03/2023 4:29 AM EST Did you pend patient's preferred pharmacy and medication before forwarding?yes Pharmacy: [facility] [address] [place] [address] Pending Prescriptions: Disp Refills lamoTRIgine 150 MG Oral Tablet (LaMICtal)*60 Tab*5 Sig: TAKE 1 TABLET.[id number] BY MOUTH TWICE A DAY Last Visit: 09/20/2022 (in office), Visit date not found (telemedicine) Next Visit: 09/26/2023 If no future appointments scheduled, and last appointment is greater than a year ago, please schedule patient for a follow-up appointment Last date the medication was ordered: 10/07/2022 Is this request for a controlled substance?No Urine Drug Screen:No results found for this or any previous visit. Patient Phone Numbers [facility] [phone] Labs: Lab Results Component Value Date/Time CREAT 1.2 (H) 02/28/2023 09:58 AM CREAT 1.2 (H) 12/22/2019 12:21 PM POTASSIUM 4.6 02/28/2023 09:58 AM POTASSIUM 4.5 12/22/2019 12:21 PM TSH 0.44 02/28/2023 09:58 AM TSH 1.55 03/18/2020 12:59 PM LDLCALC 81 02/28/2023 09:58 AM LDLCALC 52 03/18/2020 12:59 PM LDLDIRECT 74 08/21/2022 02:37 PM LDLDIRECT NOT APPLICABLE 03/18/2020 12:59 PM LDLDIRECT 149 (H) 09/15/2013 03:53 PM ALT 23 02/20/2022 02:43 PM ALT 18 03/18/2020 12:59 PM HGBA1C 5.6 08/21/2022 02:37 PM HGBA1C 5.4 03/04/2019 11:01 AM documented in this encounter Plan of Treatment Upcoming Encounters Date Type Department Care Team (Late st Contact Info) Description 04/18/2023 11:00 AM EST Nurse Only Ancillary [facility] [place] [address] [place] [address] Nurse, Int Med [address] [facility] [place] [address] 06/27/2023 10:00 AM EDT Imaging Radiology [address] 132 [facility] [place] [address] 08/29/2023 11:40 AM EDT Office Visit General Internal Medicine [facility] [place] [address] [place] [address] Katherine Dumont MD [address] [place] [address] 09/26/2023 11:20 AM EDT Office Visit Neurology [facility] [place] [address] [place] [address] Qing Jose MD [address] [place] [address] 02/06/2024 11:40 AM EST Office Visit General Internal Medicine [facility] [place] [address] [place] [address] Katherine Dumont MD [address] [place] [address] Scheduled Procedures Name Priority Associated Diagnoses Date/Ti me COLONOSCOPY FLEXIBLE PROXIMA L DIAGNOSTIC Recall History of colonic polyps Health Maintenance Due Date Last Done Comments HPV/Co-Test 2006 Depression Screening 05/20/2019 05/20/2018 COVID-19 Vaccine ( - 2022- season) 2022 04/06/2021, 07/23/2020, 06/24/2020 Mammogram 06/22/2023 06/21/2022, 05/31, 06/14/2020, Additional history exists Albumin/Creatinine Ratio 08/22/2023 08/21/2022, 07/30 CKD HGB USE SMARTSET 56158 08/22/202308/21, 02/20/2022, 09/12/2020, Additional history exists GFR 08/29/2023 02/28/2023, 07/31, 02/20/2022, Additional history exists Cervical Cancer Screening 08/30/2023 Pap Smear 08/30/2023 08/29/2020, 01/31, 05/29/2016, Additional history exists CKD PHOS USE SMARTSET 00453 02/29/202402/01, 08/21/2022, 08/08/2021, Additional history exists TSH 02/29/2024 02/28/2023, 07/31, 02/20/2022, Additional history exists DTaP,Tdap,and Td Vaccines (4 - Td or Tdap) 11/15/2024 11/15/2014, 11/15/2014, 03/10/2010 Diabetes Screening 02/28/2026 02/28/2023, 0 08/21/2022, 08/21/2022, Additional history exists COLONOSCOPY-EVERY 5 YRS AGES 18-100 06/15/2027 06/14/2022, 06/14/2022 Lipid Panel 02/29/2028 02/28/2023, 07/31, 02/20/2022, Additional history exists Pneumococcal Vaccine: Pediatrics (0 to 5 Years) and At-Risk Patients (6 to 64 Years) Aged Out 03/22/2014 No longer eligible based on patient's age to complete this topic Hepatitis B Completed 04/14/2014, 10/30, 10/08/2013 Colonoscopy Discontinued 06/14/2022, 06/14/2022 Colorectal Cancer Screening Discontinued Influenza Vaccine (FLU shot) Completed 03/01/2023, 01/13/2020, 01/13/2020, Additional history exists Cologuard Discontinued Fecal Occult Blood Test Discontinued GARDASIL-HPV IMMUNIZATION SERIES Aged Out No longer eligible based on patient's age to complete this topic MENINGOCOCCAL (MENACTRA/MENVEO) Aged Out No longer eligible based on patient's age to complete this topic Sigmoidoscopy Discontinued documented as of this encounter Medical Devices Not on filedocumented as of this encounter Care Teams Straddle Bug Operator Relationship Specialty Start Date End Date Katherine Dumont MD 200 [facility] [place] [address] PCP - General 03/10/09 documented as of this encounter
--- OUTSIDE RECORDS SUMMARY | 2023-05-07 04:34 | External Medical Summary | Summary of Care ---
Author Name Unknown Organization [facility] Address [address] [place] [address] Phone [phone] Care Team Providers Care Business Services Manager Name Role Phone Katherine Dumont MD Primary Care Provider [phone] Reason for Visit * Reason Onset Date Comments Medication Management 03/19/2023 Encounter Details Date Type Department Care Team (Late st Contact Info) Description 03/19/2023 Telephone General Internal Medicine [facility] [place] 200 [facility] [place] [address] Katherine Dumont MD 200 [place] [address] Medication Management Allergies No known active allergiesdocumented as of this encounter (statuses as of 03/19/2023) Medications Medication Sig Dispensed Refills Start Date End Date Status ACETAMINOPHEN 500 MG PO TABSIndications:Shoul gaviota joint pain 1pill by mouth every 8 [...] Active Ondansetron HCl 4 MG Oral Tablet (Zofran)Indications:N ausea and vomiting, intractability of vomiting not specified, unspecified vomiting type Take 1 Tab by mouth every 6 hours as needed for Nausea. 30 Tab 0 09/12/2020 Active Omeprazole 20 MG Oral Capsule Delayed Release (PriLOSEC)Indications :Gastroesophageal reflux disease without esophagitis Take 1 Cap by mouth daily. 1 hour before the first meal of the day 30 Cap 1 12/16/2020 Active AmLactin Foot Cream Therapy External CreamIndications:Dry skin Apply to affected areas twice daily till it heals. 1 g 0 06/05/2022 Active lamoTRIgine 150 MG Oral Tablet (LaMICtal) 1 twice a day 60 Tablet 5 10/07/2022 Active Atorvastatin Calcium 10 MG Oral Tablet (Lipitor)Indications: Hyperlipidemia with target LDL less than 100 take 1 tablet by mouth once daily 90 Tablet 2 12/03/2022 Active Levothyroxine Sodium 75 MCG Oral Tablet (Levoxyl)Indications: Acquired hypothyroidism Take 1 Tablet by mouth in the morning. (at least 30 min prior to breakfast or other meds). 90 Tablet 3 03/04/2023 Active Vitamin D (Cholecalciferol) 25 MCG (1000 UT) Oral CapsuleIndications:Vi tamin D deficiency Take 1 Capsule by mouth every evening. 90 Capsule 1 03/04/2023 Active Hospital, Clinic, or Other Facility Administered Medication Ordered Dose Route Frequency Start Date End Date Status paliperidone palmitate ER (Invega Sustenna) inj 234 mgIndications:Undifferentiate d schizophrenia (HCC) 234 mg IM [id number] 12/15/2020 Act risa documented as of this encounter (statuses as of 03/19/2023) Active Problems Problem Noted Date Diagnosed Date [...] as of this encounter (statuses as of 03/19/2023) Resolved Problems Problem Noted Date Diagnosed Date [...] as of this encounter (statuses as of 03/19/2023) Immunizations Name Administration Dates Next Due COVID-19 [...] encounter Miscellaneous Notes * Telephone Encounter - Kerline Awan LPN - 03/19/2023 9:18 AM EST Patient made aware medication is on it's way but may not be here by the time of her appointment today. Will call patient when medication arrives. She verbalized understanding. * Telephone Encounter - Carole Carrasco LPN - 03/19/2023 8:13 AM EST Attempted to contact pt, unable to leave voicemail on home phone or cell Patient needs to reschedule [place], her medication has not been received at the office. Once we get the medication in we will callher to come in. Carole Carrasco LPN documented in this encounter Plan of Treatment Upcoming Encounters Date Type Department Care Team (Late st Contact Info) Description 06/27/2023 10:00 AM EDT Imaging Radiology [address] 132 [facility] [place] [address] 08/29/2023 11:40 AM EDT Office Visit General Internal Medicine [facility] [address] [place] [address] Katherine Dumont MD [address] [facility] [place] [address] 09/26/2023 11:20 AM EDT Office Visit Neurology [facility] [address] [place] [address] Qing Jose MD [address] [facility] [place] [address] 02/06/2024 11:40 AM EST Office Visit General Internal Medicine [facility] [address] [place] [address] Katherine Dumont MD [address] [facility] [place] [address] Scheduled Procedures Name Priority Associated Diagnoses Date/Ti me COLONOSCOPY FLEXIBLE PROXIMA L DIAGNOSTIC Recall History of colonic polyps Health Maintenance Due Date Last Done Comments HPV/Co-Test 2006 Depression Screening 05/20/2019 05/20/2018 COVID-19 Vaccine ( season) 2022 04/06/2021, 07/23/2020, 06/24/2020 Mammogram 06/22/2023 06/21/2022, 05/31, 06/14/2020, Additional history exists Albumin/Creatinine Ratio 08/22/2023 08/21/2022, 07/30 CKD HGB USE SMARTSET 70010 08/22/202308/21, 02/20/2022, 09/12/2020, Additional history exists GFR 08/29/2023 02/28/2023, 07/31, 02/20/2022, Additional history exists Cervical Cancer Screening 08/30/2023 Pap Smear 08/30/2023 08/29/2020, 01/31, 05/29/2016, Additional history exists CKD PHOS USE SMARTSET 97365 02/29/202402/01, 08/21/2022, 08/08/2021, Additional history exists TSH [...] filedocumented as of this encounter Care Teams Business Services Manager Relationship Specialty Start Date End Date Katherine Dumont MD [address] [facility] [place] [place] [address] PCP - General 03/10/09 documented as of this encounter
--- OUTSIDE RECORDS SUMMARY | 2023-05-07 04:34 | External Medical Summary | Summary of Care ---
Author Name Unknown Organization [facility] Address [address] [place] [address] Phone [phone] Care Team Providers Care Senior Training Specialist Name Role Phone Katherine Dumont MD Primary Care Provider [phone] Reason for Visit * Reason Onset Date Comments Medication Management 03/19/2023 Encounter Details Date Type Department Care Team (Late st Contact Info) Description 03/19/2023 Telephone General Internal Medicine [facility] [place] 200 [facility] [place] [address] Katherine Dumont MD 200 [facility] [place] [address] Medication Management Allergies No known active allergiesdocumented [...] mgIndications:Undifferentiate d schizophrenia (HCC) 234 mg IM [id number] 12/15/2020 Act risa documented as of this [...] encounter Miscellaneous Notes * Telephone Encounter - Carole Carrasco LPN [...] Team (Late st Contact Info) Description 03/19/2023 11:00 AM EST Nurse Only Ancillary [facility] [place] [address] [place] [address] Nurse, Int Med [address] [place] [place] [address] [address] 06/27/2023 10:00 AM EDT Imaging Radiology [facility] [address] [facility] [place] [address] [place] [address] 08/29/2023 11:40 AM EDT Office Visit General Internal Medicine [facility] [address] [place] [address] Katherine Dumont MD 200 [facility] [address] [place] [address] 09/26/2023 11:20 AM EDT Office Visit Neurology [facility] [place] [address] [facility] [place] [address] Qing Jose MD 200 [place] [address] 02/06/2024 11:40 AM EST Office Visit General Internal Medicine [facility] [place] [address] [place] [place] [address] Katherine Dumont MD 200 [facility] [place] [address] Scheduled Procedures Name Priority Associated Diagnoses Date/Ti me COLONOSCOPY FLEXIBLE PROXIMA L DIAGNOSTIC Recall History of colonic polyps Health Maintenance Due Date Last Done Comments HPV/Co-Test 2006 Depression Screening 05/20/2019 05/20/2018 COVID-19 Vaccine ( season) 2022 04/06/2021, 07/23/2020, 06/24/2020 Mammogram 06/22/2023 06/21/2022, 05/31, 06/14/2020, Additional history exists Albumin/Creatinine Ratio 08/22/2023 08/21/2022, 07/30 CKD HGB USE SMARTSET 02024 08/22/202308/21, 02/20/2022, 09/12/2020, Additional history exists GFR 08/29/2023 02/28/2023, 07/31, 02/20/2022, Additional history exists Cervical Cancer Screening 08/30/2023 Pap Smear 08/30/2023 08/29/2020, 01/31, 05/29/2016, Additional history exists CKD PHOS USE SMARTSET 90601 02/29/202402/01, 08/21/2022, 08/08/2021, Additional history exists TSH [...] filedocumented as of this encounter Care Teams Senior Training Specialist Relationship Specialty Start Date End Date Katherine Dumont MD [address] [place] [address] PCP - General 03/10/09 documented as of this encounter
--- OUTSIDE RECORDS SUMMARY | 2023-05-07 04:34 | External Medical Summary | Summary of Care ---
Author Name Unknown Organization [facility] Address [address] [place] [address] Phone [phone] Care Team Providers Care Search Engine Optimization Analyst Name Role Phone Katherine Dumont MD Primary Care Provider [phone] Reason for Visit * Reason Onset Date Comments Medication Management 03/19/2023 Encounter Details Date Type Department Care Team (Late st Contact Info) Description 03/19/2023 Telephone General Internal Medicine [facility] [place] [facility] [place] [address] Katherine Dumont MD 200 [place] [address] Medication Management Allergies No known active allergiesdocumented as of this encounter (statuses as of 03/21/2023) Medications Medication Sig Dispensed Refills Start Date [...] mgIndications:Undifferentiate d schizophrenia (HCC) 234 mg IM [id number] 12/15/2020 Act risa documented as of this encounter (statuses as of 03/21/2023) Active Problems Problem Noted Date Diagnosed Date [...] as of this encounter (statuses as of 03/21/2023) Resolved Problems Problem Noted Date Diagnosed Date [...] as of this encounter (statuses as of 03/21/2023) Immunizations Name Administration Dates Next Due COVID-19 [...] encounter Miscellaneous Notes * Telephone Encounter - Francia Persaud OSA - 03/21/2023 9:42 AM EST Patient has been notified of the message. Patient has no further questions. Pt scheduled with nurse today at 11:30 am * Telephone Encounter - Kerline Awan LPN - 03/20/2023 11:15 AM EST Attempted to reach patient again. Unable to leave VM. Will try again later. * Telephone Encounter - Kerline Awan LPN - 03/20/2023 10:19 AM EST Attempted to reach patient to let her know we received her medication. Unable to leave VM. Will tryagain later. * Telephone Encounter - Kerline Awan LPN [...] Care Team (Late st Contact Info) Description 03/21/2023 11:30 AM EST Nurse Only Ancillary [facility] [place] [address] [place] [address] Nurse, Int Med [address] [place] [address] 06/27/2023 10:00 AM EDT Imaging Radiology [facility] [place] 132 [facility] [place] [address] 08/29/2023 11:40 AM EDT Office Visit General Internal Medicine [facility] [place] [address] [place] [address] Katherine Dumont MD [address] [place] [address] 09/26/2023 11:20 AM EDT Office Visit Neurology [facility] 200 [facility] [place] [address] Qing Jose MD 200 [facility] [place] [address] 02/06/2024 11:40 AM EST Office Visit General Internal Medicine [facility] 200 [facility] [place] [address] Katherine Dumont MD 200 [facility] [place] [address] Scheduled Procedures Name Priority Associated Diagnoses Date/Ti me COLONOSCOPY FLEXIBLE PROXIMA L DIAGNOSTIC Recall History of colonic polyps Health Maintenance Due Date Last Done Comments HPV/Co-Test 2006 Depression Screening 05/20/2019 05/20/2018 COVID-19 Vaccine ( season) 2022 04/06/2021, 07/23/2020, 06/24/2020 Mammogram 06/22/2023 06/21/2022, 05/31, 06/14/2020, Additional history exists Albumin/Creatinine Ratio 08/22/2023 08/21/2022, 07/30 CKD HGB USE SMARTSET 55581 08/22/202308/21, 02/20/2022, 09/12/2020, Additional history exists GFR 08/29/2023 02/28/2023, 07/31, 02/20/2022, Additional history exists Cervical Cancer Screening 08/30/2023 Pap Smear 08/30/2023 08/29/2020, 01/31, 05/29/2016, Additional history exists CKD PHOS USE SMARTSET 47763 02/29/202402/01, 08/21/2022, 08/08/2021, Additional history exists TSH 02/29/2024 02/28/2023, 07/31, 02/20/2022, Additional history exists DTaP,Tdap,and Td Vaccines (4 - Td or Tdap) 11/15/2024 11/15/2014, 11/15/2014, 03/10/2010 Diabetes Screening 02/28/2026 02/28/2023, 0 08/21/2022, 08/21/2022, Additional history exists COLONOSCOPY-EVERY 5 YRS AGES 18-100 06/15/2027 06/14/2022, 06/14/2022 Lipid Panel 02/29/2028 02/28/2023, 0505/2022, 02/20/2022, Additional history exists Pneumococcal Vaccine: Pediatrics [...] filedocumented as of this encounter Care Teams Search Engine Optimization Analyst Relationship Specialty Start Date End Date Katherine Dumont MD [address] [place] [address] PCP - General 03/10/09 documented as of this encounter
--- OUTSIDE RECORDS SUMMARY | 2023-05-07 04:34 | External Medical Summary | Summary of Care ---
Author Name Unknown Organization [facility] Address [address] [place] [address] Phone [phone] Care Team Providers Care Mechanic Welder Truck Driver Name Role Phone Katherine Dumont MD Primary Care Provider [phone] Encounter Details Date Type Department Care Team (Late st Contact Info) Description 04/18/2023 11:00 AM EST Nurse Only Ancillary [facility] [place] [address] [place] [address] Nurse, Int Med 200 [facility] [place] [id number] Allergies No known active allergiesdocumented as of this encounter (statuses as of 04/18/2023) Medications Medication Sig Dispensed Refills Start Date [...] A DAY 60 Tablet 5 04/04/2023 Active Hospital, Clinic, or Other Facility Administered Medication Ordered Dose Route Frequency Start Date End Date Status paliperidone palmitate ER (Invega Sustenna) inj 234 mgIndications:Undifferentiate d schizophrenia (HCC) 234 mg IM [id number] 12/15/2020 Act risa documented as of this encounter (statuses as of 04/18/2023) Active Problems Problem Noted Date Diagnosed Date [...] as of this encounter (statuses as of 04/18/2023) Resolved Problems Problem Noted Date Diagnosed Date [...] as of this encounter (statuses as of 04/18/2023) Immunizations Name Administration Dates Next Due COVID-19 mRNA, LNP-s, No Pre serve, 2-Dose Series (Moderna) 07/23/2020,06/24/2020 COVID-19, mRNA, LNP-s, PF, B ooster, 100mcg/0.5mg (Moderna) 04/06/2021 Hepatitis B, 20+ yrs 04/14/2014,11/12/2013,10/08 PPD 03/01/2023,,11/25/2019,07/15,08/10/2015,06/30/2013,05/29/2011 ,04/06/2009 Pneumococcal Polysaccharide PPV23 (Pneumovax) 03/22/2014 Seasonal Influenza Virus Vac cine, Unspecified Formulation 01/13/2020,03/17/2019,12/17/2017,02/07,11/15/2014,01/05/2014,12/28/2011 ,12/26/2011,03/12/2011,01/25/2010,12/3 Seasonal Influenza, PF, 6 M & above, [...] on file documented as of this encounter Plan of Treatment Upcoming Encounters Date Type Department Care Team (Late st Contact Info) Description 05/17/2023 11:00 AM EST Nurse Only Ancillary [facility] [place] [address] [place] [address] Nurse, Int Med [address] [place] [address] 06/27/2023 10:00 AM EDT Imaging Radiology [facility] 1st [facility] [place] [address] [facility] [place] [address] 08/29/2023 11:40 AM EDT Office Visit General Internal Medicine [facility] [place] [address] [place] [address] Katherine Dumont MD [address] [place] [address] 09/26/2023 11:20 AM EDT Office Visit Neurology [facility] 200 [facility] [address] Qing Jose MD 200 [facility] [place] [address] 02/06/2024 11:40 AM EST Office Visit General Internal Medicine [facility] [place] 200 [facility] [place] [address] Katherine Dumont MD 200 [facility] [place] [address] Scheduled Procedures Name Priority Associated Diagnoses Date/Ti me COLONOSCOPY FLEXIBLE PROXIMA L DIAGNOSTIC Recall History of colonic polyps Health Maintenance Due Date Last Done Comments HPV/Co-Test 2006 Depression Screening 05/20/2019 05/20/2018 COVID-19 Vaccine ( season) 2022 04/06/2021, 07/23/2020, 06/24/2020 Mammogram 06/22/2023 06/21/2022, 05/31, 06/14/2020, Additional history exists Albumin/Creatinine Ratio 08/22/2023 08/21/2022, 07/30 CKD HGB USE SMARTSET 11498 08/22/202308/21, 02/20/2022, 09/12/2020, Additional history exists GFR 08/29/2023 02/28/2023, 07/31, 02/20/2022, Additional history exists Cervical Cancer Screening 08/30/2023 Pap Smear 08/30/2023 08/29/2020, 01/31, 05/29/2016, Additional history exists CKD PHOS USE SMARTSET 75550 02/29/202402/01, 08/21/2022, 08/08/2021, Additional history exists TSH 02/29/2024 02/28/2023, 07/31, 02/20/2022, Additional history exists DTaP,Tdap,and Td Vaccines (4 - Td or Tdap) 11/15/2024 11/15/2014, 11/15/2014, 03/10/2010 Diabetes Screening 02/28/2026 02/28/2023, 0 08/21/2022, 08/21/2022, Additional history exists COLONOSCOPY-EVERY 5 YRS AGES 18-100 06/15/2027 06/14/2022, 06/14/2022 Lipid Panel 02/29/2028 02/28/2023, 05/05/2022, 02/20/2022, Additional history exists Pneumococcal Vaccine: Pediatrics [...] Not on filedocumented as of this encounter Administered Medications Active Administered Medications - up to 3 most recent administrations Medication Order MAR Action Action Date Dose Rate Site paliperidone palmitate ER (Invega Sustenna) inj 234 mg 234 mg, Intramuscular, [id number], First dose on Irma 12/15/20 at 1215, Until Discontinued Given 04/18/2023 10:55 AM EST 234 mg Deltoid Left Upper Given 03/21/2023 11:10 AM EST 234 mg D eltoid Left Upper Given 02/19/2023 10:57 AM EST 234 mg D eltoid Left Upper documented in this encounter Care Teams Mechanic Welder Truck Driver Relationship Specialty Start Date End Date Katherine Dumont MD 200 [facility] [place] [address] PCP - General 03/10/09 documented as of this encounter
--- OUTSIDE RECORDS SUMMARY | 2023-05-07 04:34 | External Medical Summary | Summary of Care ---
Author Name Unknown Organization [facility] Address [address] [place] [address] Phone [phone] Care Team Providers Care Motel Manager Name Role Phone Katherine Dumont MD Primary Care Provider [phone] Reason for Visit * Reason Onset Date Comments Medication Management 03/19/2023 Encounter Details Date Type Department Care Team (Late st Contact Info) Description 03/19/2023 Telephone General Internal Medicine [facility] [place] 200 [facility] [place] [address] Katherine Dumont MD 200 [facility] [place] [address] Medication Management Allergies No known active allergiesdocumented as of this encounter (statuses as of 03/20/2023) Medications Medication Sig Dispensed Refills Start Date [...] mgIndications:Undifferentiate d schizophrenia (HCC) 234 mg IM [id number] 12/15/2020 Act risa documented as of this encounter (statuses as of 03/20/2023) Active Problems Problem Noted Date Diagnosed Date [...] as of this encounter (statuses as of 03/20/2023) Resolved Problems Problem Noted Date Diagnosed Date [...] as of this encounter (statuses as of 03/20/2023) Immunizations Name Administration Dates Next Due COVID-19 [...] Description 06/27/2023 10:00 AM EDT Imaging Radiology [address], [address] [place] [address] 08/29/2023 11:40 AM EDT Office Visit General Internal Medicine [place] [address] [address] [place] [address] Katherine Dumont MD [address] [place] [address] [place] [address] 09/26/2023 11:20 AM EDT Office Visit Neurology [address] [place] [address] Qing Jose MD [address] [place] [address] [place] [address] 02/06/2024 11:40 AM EST Office Visit General Internal Medicine [facility] [place] [address] [place] [address] Katherine Dumont MD [address] [place] [address] [place] [address] Scheduled Procedures Name Priority Associated Diagnoses Date/Ti me COLONOSCOPY FLEXIBLE PROXIMA L DIAGNOSTIC Recall History of colonic polyps Health Maintenance Due Date Last Done Comments HPV/Co-Test 2006 Depression Screening 05/20/2019 05/20/2018 COVID-19 Vaccine ( - 2022- season) 2022 04/06/2021, 07/23/2020, 06/24/2020 Mammogram 06/22/2023 06/21/2022, 05/31, 06/14/2020, Additional history exists Albumin/Creatinine Ratio 08/22/2023 08/21/2022, 07/30 CKD HGB USE SMARTSET 52158 08/22/202308/21, 02/20/2022, 09/12/2020, Additional history exists GFR 08/29/2023 02/28/2023, 07/31, 02/20/2022, Additional history exists Cervical Cancer Screening 08/30/2023 Pap Smear 08/30/2023 08/29/2020, 01/31, 05/29/2016, Additional history exists CKD PHOS USE SMARTSET 87964 02/29/202402/01, 08/21/2022, 08/08/2021, Additional history exists TSH [...] filedocumented as of this encounter Care Teams Motel Manager Relationship Specialty Start Date End Date Katherine Dumont MD 200 [facility] [place] [address] PCP - General 03/10/09 documented as of this encounter
--- OUTSIDE RECORDS SUMMARY | 2023-05-07 04:34 | External Medical Summary | Summary of Care ---
Author Name Unknown Organization [facility] Address [address] [place] [address] Phone [phone] Care Team Providers Care Pool Installer Name Role Phone Katherine Dumont MD Primary Care Provider Encounter Details Date Type Department Care Team (Late st Contact Info) Description 03/21/2023 11:30 AM EST Nurse Only Ancillary [facility] [place] [address] [place] [address] Nurse, Int Med 200 [facility] [place] [address] Allergies No known active allergiesdocumented as of [...] mgIndications:Undifferentiate d schizophrenia (HCC) 234 mg IM [id number] 12/15/2020 Act risa documented as of this [...] on file documented as of this encounter Progress Notes * Carole Carrasco LPN - 03/21/2023 11:14 AM EST Pre-Administration Time Out Procedure Performed: Yes Patient Identified (Ask Name/Date of ): Yes Does the patient have a fever greater than 101 degrees today? No Patient allergic to latex? No Has the patient ever fainted after receiving an injection? No VFC Stock: No Injection(s) verified: Yes, Injection Name: Invega 234mg Verified Side and Site: Yes Verified Shot(s) with Parent(s)/Patient: Yes documented in this encounter Plan of Treatment Upcoming Encounters Date Type Department Care Team (Late st Contact Info) Description 04/18/2023 11:00 AM EST Nurse Only Ancillary [facility] [place] [address] [place], [place] [address] Nurse, Int Med 200 [facility] [place], [place] [address] 06/27/2023 10:00 AM EDT Imaging Radiology [address], [place] [address] [facility] [place] [address] 08/29/2023 11:40 AM EDT Office Visit General Internal Medicine [facility] [place] [place] [address] Katherine Dumont MD 200 [facility] [place] [address] 09/26/2023 11:20 AM EDT Office Visit Neurology [facility] 200 [facility] [place] [address] Qing Jose MD 200 [facility] [place] [address] 02/06/2024 11:40 AM EST Office Visit General Internal Medicine [facility] 200 [facility] [place] [address] Katherine Dumont MD 200 [facility] [place], [place] [address] Scheduled Procedures Name Priority Associated Diagnoses Date/Ti me COLONOSCOPY FLEXIBLE PROXIMA L DIAGNOSTIC Recall History of colonic polyps Health Maintenance Due Date Last Done Comments HPV/Co-Test 2006 Depression Screening 05/20/2019 05/20/2018 COVID-19 Vaccine ( season) 2022 04/06/2021, 07/23/2020, 06/24/2020 Mammogram 06/22/2023 06/21/2022, 05/31, 06/14/2020, Additional history exists Albumin/Creatinine Ratio 08/22/2023 08/21/2022, 07/30 CKD HGB USE SMARTSET 47726 08/22/202308/21, 02/20/2022, 09/12/2020, Additional history exists GFR 08/29/2023 02/28/2023, 07/31, 02/20/2022, Additional history exists Cervical Cancer Screening 08/30/2023 Pap Smear 08/30/2023 08/29/2020, 01/31, 05/29/2016, Additional history exists CKD PHOS USE SMARTSET 25686 02/29/202402/01, 08/21/2022, 08/08/2021, Additional history exists TSH [...] Sustenna) inj 234 mg 234 mg, Intramuscular, [id number], First dose on Irma 12/15/20 at 1215, Until Discontinued Given 03/21/2023 11:10 AM EST 234 mg Deltoid Left Upper Given 02/19/2023 10:57 AM EST 234 mg D eltoid Left Upper Given 01/22/2023 10:59 AM EDT 234 mg D eltoid Left Upper documented in this encounter Care Teams Pool Installer Relationship Specialty Start Date End Date Katherine Dumont MD 200 [facility] [place] [address] PCP - General 03/10/09 documented as of this encounter
--- OUTSIDE RECORDS SUMMARY | 2023-05-07 04:34 | External Medical Summary | Summary of Care ---
Author Name Unknown Organization [facility] Address [address] [place] [address] Phone [phone] Care Team Providers Care Drag Out Worker Name Role Phone Katherine Dumont MD Primary Care Provider [phone] Reason for Visit * Reason Onset Date Comments Medication Management 03/19/2023 Encounter Details Date Type Department Care Team (Late st Contact Info) Description 03/19/2023 Telephone General Internal Medicine [facility] [place] 200 [facility] [place] [address] Katherine Dumont MD 200 [place] [address] Medication Management Allergies No known active allergiesdocumented [...] mgIndications:Undifferentiate d schizophrenia (HCC) 234 mg IM [id number] 12/15/2020 Act risa documented as of this [...] we received her medication. Unable to leave . Will tryagain later. * Telephone Encounter - [...] Description 06/27/2023 10:00 AM EDT Imaging Radiology [address] [place] [address] 08/29/2023 11:40 AM EDT Office Visit General Internal Medicine [facility] 200 [facility] [place] [address] Katherine Dumont MD [address] [place] [address] [place] [address] 09/26/2023 11:20 AM EDT Office Visit Neurology [address] [place] [address] Qing Jose MD [address] [place] [address] [place] [address] 02/06/2024 11:40 AM EST Office Visit General Internal Medicine [address] [place] [address] Katherine Dumont MD [address] [place] [address] [place] [address] Scheduled Procedures Name Priority Associated Diagnoses Date/Ti me COLONOSCOPY FLEXIBLE PROXIMA L DIAGNOSTIC Recall History of colonic polyps Health Maintenance Due Date Last Done Comments HPV/Co-Test 2006 Depression Screening 05/20/2019 05/20/2018 COVID-19 Vaccine ( season) 2022 04/06/2021, 07/23/2020, 06/24/2020 Mammogram 06/22/2023 06/21/2022, 05/31, 06/14/2020, Additional history exists Albumin/Creatinine Ratio 08/22/2023 08/21/2022, 07/30 CKD HGB USE SMARTSET 95921 08/22/202308/21, 02/20/2022, 09/12/2020, Additional history exists GFR 08/29/2023 02/28/2023, 07/31, 02/20/2022, Additional history exists Cervical Cancer Screening 08/30/2023 Pap Smear 08/30/2023 08/29/2020, 01/31, 05/29/2016, Additional history exists CKD PHOS USE SMARTSET 49487 02/29/202402/01, 08/21/2022, 08/08/2021, Additional history exists TSH [...] filedocumented as of this encounter Care Teams Drag Out Worker Relationship Specialty Start Date End Date Katherine Dumont MD 200 [facility] [place] [address] PCP - General 03/10/09 documented as of this encounter
--- OUTSIDE RECORDS SUMMARY | 2023-05-07 04:35 | External Medical Summary | Summary of Care ---
Author Name Unknown Organization [facility] Address [address] [place] [address] Phone [phone] Care Team Providers Care Director Cardiovascular Name Role Phone Katherine Dumont MD Primary Care Provider [phone] Encounter Details Date Type Department Care Team (Late st Contact Info) Description 02/19/2023 11:00 AM EST Nurse Only Ancillary [facility] [place] [address] [place] [address] Nurse, Int Med 200 [facility] [place] [address] Arrived Allergies No known active allergiesdocumented as of this encounter (statuses as of 02/19/2023) Medications Medication Sig Dispensed Refills Start Date [...] Tablet (ATIVAN) Take 1 Tablet by mouth in the morning and 1 Tablet before bedtime. 0 03/06/2020 Active Ondansetron HCl 4 [...] the day 30 Cap 1 12/16/2020 Active Levothyroxine Sodium 88 MCG Oral Tablet (Levoxyl)Indications: Acquired hypothyroidism take 1 tablet by mouth once daily 90 Tablet 2 12/26/2021 Active AmLactin Foot Cream Therapy External CreamIndications:Dry skin Apply to affected areas twice daily till it heals. 1 g 0 06/05/2022 Active Additional Information Patient not taking.Reported on 01/30/2023 lamoTRIgine 150 MG Oral Tablet (LaMICtal) 1 twice a day 60 Tablet 5 10/07/2022 Active Atorvastatin Calcium 10 MG Oral Tablet (Lipitor)Indications: Hyperlipidemia with target LDL less than 100 take 1 tablet by mouth once daily 90 Tablet 2 12/03/2022 Active Hospital, Clinic, or Other Facility Administered Medication Ordered Dose Route Frequency Start Date End Date Status paliperidone palmitate ER (Invega Sustenna) inj 234 mgIndications:Undifferentiate d schizophrenia (HCC) 234 mg IM [id number] 12/15/2020 Act risa documented as of this encounter (statuses as of 02/19/2023) Active Problems Problem Noted Date Diagnosed Date [...] as of this encounter (statuses as of 02/19/2023) Resolved Problems Problem Noted Date Diagnosed Date [...] as of this encounter (statuses as of 02/19/2023) Immunizations Name Administration Dates Next Due COVID-19 mRNA, LNP-s, No Pre serve, 2-Dose Series (Moderna) 07/23/2020,06/24/2020 COVID-19, mRNA, LNP-s, PF, B ooster, 100mcg/0.5mg (Moderna) 04/06/2021 Hepatitis B, 20+ yrs 04/14/2014,11/12/2013,10/08 PPD 12/01/2020, 0,07/15/2017,08/09,06/30/2013,05/29/2011,04/06/2009 Pneumococcal Polysaccharide PPV23 (Pneumovax) 03/22/2014 SEASONAL INFLUENZA, PF, 6 M & Above, IM , (FLULAVAL or FLUZONE) 01/13/2020,03/17/2019,12/17/2017,02/07 Seasonal Influenza Virus Vac cine, Unspecified Formulation 01/13/2020,03/17/2019,12/17/2017,02/07,11/15/2014,01/05/2014,12/28/2011 ,12/26/2011,03/12/2011,01/25/2010,03/03 Seasonal Influenza, Split, I IV3, With Preserve, [...] on file documented as of this encounter Nursing Notes * Kerline Awan LPN - 02/19/2023 10:55 AM EST Pre-Administration Time Out Procedure Performed: Yes Patient Identified (Ask Name/Date of ): Yes Does the patient have a fever greater than 101 degrees today? No Patient allergic to latex? No Has the patient ever fainted after receiving an injection? No VFC Stock: No Injection(s) verified: Yes, Injection Name: Invega Sustenna Verified Side and Site: Yes Verified Shot(s) with Parent(s)/Patient: Yes documented in this encounter Plan of Treatment Upcoming Encounters Date Type Department Care Team (Late st Contact Info) Description 02/28/2023 8:40 AM EST Office Visit General Internal Medicine [facility] [place] [address] [place] [address] Katherine Dumont MD [address] [facility] [place] [address] 03/12/2023 3:30 PM EST Telemedicine Orthopaedics [facility] [address] [facility] [place] [address] Sharer, Yasmine Culver PA-C [facility] [place] [address] 03/19/2023 11:00 AM EST Nurse Only Ancillary [facility] 200 [facility] [place] [address] Nurse, Int Med 200 [facility] [place] [address] 06/27/2023 10:00 AM EDT Imaging Radiology [facility] 132 [facility] [place] [address] 09/26/2023 11:20 AM EDT Office Visit Neurology [facility] 200 [facility] [place] [address] Qing Jose MD 200 [facility] [place] [address] 02/06/2024 11:40 AM EST Office Visit General Internal Medicine [facility] 200 [facility] [place] [address] Katherine Dumont MD 200 [facility] [place] [address] Scheduled Procedures Name Priority Associated Diagnoses Date/Ti me COLONOSCOPY FLEXIBLE PROXIMA L DIAGNOSTIC Recall History of colonic polyps Health Maintenance Due Date Last Done Comments HPV/Co-Test 2006 Depression Screening 05/20/2019 05/20/2018 COVID-19 Vaccine ( season) 2022 04/06/2021, 07/23/2020, 06/24/2020 Influenza Vaccine (FLU shot) (#1) 2022 01/13/2020, 01/13/2020, 03/17/2019, Additional history exists GFR 02/21/2023 08/21/2022, 01/31, 08/08/2021, Additional history exists Mammogram 06/22/2023 06/21/2022, 05/31, 06/14/2020, Additional history exists Albumin/Creatinine Ratio 08/22/2023 08/21/2022, 07/30 CKD HGB USE SMARTSET 73472 08/22/202308/21, 02/20/2022, 09/12/2020, Additional history exists CKD PHOS USE SMARTSET 69727 08/22/202307/31, 08/08/2021, 06/21/2020, Additional history exists TSH 08/22/2023 08/21/2022, 01/31, 08/08/2021, Additional history exists Cervical Cancer Screening 08/30/2023 Pap Smear 08/30/2023 08/29/2020, 01/31, 05/29/2016, Additional history exists DTaP,Tdap,and Td Vaccines (4 - Td or Tdap) 11/15/2024 11/15/2014, 11/15/2014, 03/10/2010 Diabetes Screening 08/21/2025 08/21/2022, 0 08/21/2022, 02/20/2022, Additional history exists COLONOSCOPY-EVERY 5 YRS AGES 18-100 06/15/2027 06/14/2022, 06/14/2022 Lipid Panel 08/22/2027 08/21/2022, 01/31, 08/08/2021, Additional history exists Pneumococcal Vaccine: Pediatrics (0 to 5 Years) and At-Risk Patients (6 to 64 Years) Aged Out 03/22/2014 No longer eligible based on patient's age to complete this topic Hepatitis B Completed 04/14/2014, 10/30, 10/08/2013 Colonoscopy Discontinued 06/14/2022, 06/14/2022 Colorectal Cancer Screening Discontinued Cologuard Discontinued Fecal Occult Blood Test Discontinued [...] Sustenna) inj 234 mg 234 mg, Intramuscular, [id number], First dose on Irma 12/15/20 at 1215, Until Discontinued Given 02/19/2023 10:57 AM EST 234 mg Deltoid Left Upper Given 01/22/2023 10:59 AM EDT 234 mg D eltoid Left Upper Given 12/25/2022 10:59 AM EDT 234 mg D eltoid Left Upper documented in this encounter Care Teams Director Cardiovascular Relationship Specialty Start Date End Date Katherine Dumont MD 200 [facility], [place] [address] PCP - General 03/10/09 documented as of this encounter
--- OUTSIDE RECORDS SUMMARY | 2023-05-07 04:35 | External Medical Summary | Summary of Care ---
Author Name Unknown Organization [facility] Address [address] [place] [address] Phone [phone] Care Team Providers Care Digital Media Director Name Role Phone Katherine Dumont MD Primary Care Provider [phone] Reason for Visit * Reason Onset Date Comments Test Results 03/01/2023 Encounter Details Date Type Department Care Team (Late st Contact Info) Description 03/01/2023 Telephone General Internal Medicine [facility] [place] [address] [facility] [place] [address] Katherine Dumont MD 200 [facility] [place] [address] Test Results Allergies No known active allergiesdocumented as of this encounter (statuses as of 03/04/2023) Medications Medication Sig Dispensed Refills Start Date [...] every evening. 90 Capsule 1 03/04/2023 Active Levothyroxine Sodium 88 MCG Oral Tablet (Levoxyl)Indication s:Acquired hypothyroidism take 1 tablet by mouth once daily 90 Tablet 2 12/26/2021 03/04/20 23 Discontinued Hospital, Clinic, or Other Facility Administered Medication Ordered Dose Route Frequency Start Date End Date Status paliperidone palmitate ER (Invega Sustenna) inj 234 mgIndications:Undifferentiate d schizophrenia (HCC) 234 mg IM [id number] 12/15/2020 Act risa documented as of this encounter (statuses as of 03/04/2023) Active Problems Problem Noted Date Diagnosed Date [...] as of this encounter (statuses as of 03/04/2023) Resolved Problems Problem Noted Date Diagnosed Date [...] as of this encounter (statuses as of 03/04/2023) Immunizations Name Administration Dates Next Due COVID-19 mRNA, LNP-s, No Pre serve, 2-Dose Series (Moderna) 07/23/2020,06/24/2020 COVID-19, mRNA, LNP-s, PF, B ooster, 100mcg/0.5mg (Moderna) 04/06/2021 Hepatitis B, 20+ yrs 04/14/2014,11/12/2013,10/08 PPD 03/01/2023,,11/25/2019,07/15,08/10/2015,06/30/2013,05/29/2011 ,04/06/2009 Pneumococcal Polysaccharide PPV23 (Pneumovax) 03/22/2014 SEASONAL INFLUENZA, PF, 6 M & Above, IM , (FLULAVAL or FLUZONE) 03/01/2023,01/13/2020,03/17/2019,12/17,02/07/2017 Seasonal Influenza Virus Vac cine, Unspecified Formulation [...] encounter Miscellaneous Notes * Telephone Encounter - Katherine Dumont MD - 03/04/2023 10:54 AM EST Done * Telephone Encounter - Reza White CMA - 03/04/2023 9:18 AM EST Patient aware and verbalized understanding, needs rx sent to [facility] * Telephone Encounter - Reza White CMA - 03/01/2023 3:50 PM EST Attempted to call patient, went to busy dial tone unable to reach patient at this time * Telephone Encounter - Reza White CMA - 03/01/2023 3:44 PM EST ----- Message from Katherine Dumont MD sent at 03/01/2023 3:36 PM EST ----- Tsh slightly low, which means current thyroid medicine dose slightly high, need to decrease levothyroxine dose to 75 mcg and recheck TSH in 6 weeks. Vit D also slightly low - start OTC vit D 1000 IU daily - caution of constipation and not to take with thyroid medication Rest stable documented in this encounter Plan of Treatment Upcoming Encounters Date Type Department Care Team (Late st Contact Info) Description 03/12/2023 3:30 PM EST Telemedicine Orthopaedics [facility] [address] [facility] [place] [address] Yasmine Jacobo PA-C 132 [facility] [place] [address] 03/19/2023 11:00 AM EST Nurse Only Ancillary [facility] [address] [place] [address] Nurse, Int Med [address] [place] [address] 06/27/2023 10:00 AM EDT Imaging Radiology [facility] [address] [facility] [place] [address] 08/29/2023 11:40 AM EDT Office Visit General Internal Medicine [facility] [address] [place] [address] Katherine Dumont MD 200 [facility] [place] [address] 09/26/2023 11:20 AM EDT Office Visit Neurology [facility] [place] [address] [place] [address] Qing Jose MD 200 [facility] [address] 02/06/2024 11:40 AM EST Office Visit General Internal Medicine [facility] [place] [address] [facility] [place] [address] Katherine Dumont MD 200 [facility] [place] [address] Scheduled Orders Name Type Priority Associated Diagnoses Orde r Schedule TSH Lab Routine Acquired hypothyroidism Expected: 04/15/2023 (Approximate), Expires: 03/03/2024 Scheduled Procedures Name Priority Associated Diagnoses Date/Ti me COLONOSCOPY FLEXIBLE PROXIMA L DIAGNOSTIC Recall History of colonic polyps Health Maintenance Due Date Last Done Comments HPV/Co-Test 2006 Depression Screening 05/20/2019 05/20/2018 COVID-19 Vaccine ( season) 2022 04/06/2021, 07/23/2020, 06/24/2020 Mammogram 06/22/2023 06/21/2022, 05/31, 06/14/2020, Additional history exists Albumin/Creatinine Ratio 08/22/2023 08/21/2022, 07/30 CKD HGB USE SMARTSET 97143 08/22/202308/21, 02/20/2022, 09/12/2020, Additional history exists GFR 08/29/2023 02/28/2023, 07/31, 02/20/2022, Additional history exists Cervical Cancer Screening 08/30/2023 Pap Smear 08/30/2023 08/29/2020, 01/31, 05/29/2016, Additional history exists CKD PHOS USE SMARTSET 38880 02/29/202402/01, 08/21/2022, 08/08/2021, Additional history exists TSH [...] Not on filedocumented as of this encounter Visit Diagnoses Diagnosis Acquired hypothyroidism- Primary Unspecified hypothyroidism Vitamin D deficiency Unspecified vitamin D deficiency documented in this encounter Care Teams Digital Media Director Relationship Specialty Start Date End Date Katherine Dumont MD [address] [place] [address] PCP - General 03/10/09 documented as of this encounter
--- OUTSIDE RECORDS SUMMARY | 2023-05-07 04:35 | External Medical Summary ---
Author Name Unknown Address Unknown Organization [id number]:LABORATORY [facility] [place] - [address] [facility] [address] Laboratory Report Ordering Provider Test Date Status BRICE BAH 02/28/2023 09:58:13 Final Observation Date Value Abnormality Reference (Units ) Status TSH 02/28/2023 09:58:13 0.44 0.27-4.20 (uIU/mL) Final Performing Location [facility] - [address] [facility] [address]
--- OUTSIDE RECORDS SUMMARY | 2023-05-07 04:35 | External Medical Summary | Summary of Care ---
Author Name Unknown Organization [facility] Address [address] [place] [address] Phone [phone] Care Team Providers Care Termination Clerk Name Role Phone Katherine Dumont MD Primary Care Provider [phone] Reason for Visit * Reason Comments Outpatient Testing Encounter Details Date Type Department Care Team (Late st Contact Info) Description 02/28/2023 9:50 AM EST Laboratory [facility] [place] [address] [place] [phone] [place] [address] [place] [address] Stage 3a chronic kidney disease; Hyperlipidemia with target LDL less than 100; Encounter for long-term (current) use of medications; Acquired hypothyroidism Allergies No known active allergiesdocumented as of this encounter (statuses as of 02/28/2023) Medications Medication Sig Dispensed Refills Start Date End Date Status ACETAMINOPHEN 500 MG PO TABSIndications:Should er joint pain 1pill by mouth every 8 [...] Active Ondansetron HCl 4 MG Oral Tablet (Zofran)Indications:Na usea and vomiting, intractability of vomiting not specified, unspecified vomiting type Take 1 Tab by mouth every 6 hours as needed for Nausea. 30 Tab 0 09/12/2020 Active Omeprazole 20 MG Oral Capsule Delayed Release (PriLOSEC)Indications: Gastroesophageal reflux disease without esophagitis Take 1 Cap by mouth daily. 1 hour before the first meal of the day 30 Cap 1 12/16/2020 Active Levothyroxine Sodium 88 MCG Oral Tablet (Levoxyl)Indications:A cquired hypothyroidism take 1 tablet by mouth once daily 90 Tablet 2 12/26/2021 Active AmLactin Foot Cream Therapy External CreamIndications:Dry skin Apply to affected areas twice daily till it heals. 1 g 0 06/05/2022 Active lamoTRIgine 150 MG Oral Tablet (LaMICtal) 1 twice a day 60 Tablet 5 10/07/2022 Active Atorvastatin Calcium 10 MG Oral Tablet (Lipitor)Indications:H yperlipidemia with target LDL less than 100 take 1 tablet by mouth once daily 90 Tablet 2 12/03/2022 Active Hospital, Clinic, or Other Facility Administered Medication Ordered Dose Route Frequency Start Date End Date Status paliperidone palmitate ER (Invega Sustenna) inj 234 mgIndications:Undifferentiate d schizophrenia (HCC) 234 mg IM [id number] 12/15/2020 Act risa documented as of this encounter (statuses as of 02/28/2023) Active Problems Problem Noted Date Diagnosed Date [...] as of this encounter (statuses as of 02/28/2023) Resolved Problems Problem Noted Date Diagnosed Date [...] as of this encounter (statuses as of 02/28/2023) Immunizations Name Administration Dates Next Due COVID-19 [...] Team (Late st Contact Info) Description 03/01/2023 9:00 AM EST Nurse Only Ancillary [facility] [address] [place] [address] Nurse, Int Med [address] [place] [address] 03/12/2023 3:30 PM EST Telemedicine Orthopaedics [facility] [address] [place] [address] SharerYasmine PA-C [address] [place] [address] 03/19/2023 11:00 AM EST Nurse Only Ancillary [facility] [address] [place] [address] Nurse, Int Med [address] [place] [address] 06/27/2023 10:00 AM EDT Imaging Radiology [facility]st [facility] [place] [address] [place] [address] 08/29/2023 11:40 AM EDT Office Visit General Internal Medicine [facility] [address] [place] [address] Katherine Dumont MD 200 [facility] [place] [address] 09/26/2023 11:20 AM EDT Office Visit Neurology [facility] [address] [place] [address] Qing Jose MD 200 [facility] [place] [address] 02/06/2024 11:40 AM EST Office Visit General Internal Medicine [facility] [address] [place] [address] Katherine Dumont MD [address] [facility] [place] [address] Pending Results Name Type Priority Associated Diagnoses Date /Time RENAL FUNCTION PANEL Lab Routine Stage 3a chronic kidney disease 02/28/2023 9:58 AM EST 25-HYDROXY VITAMIN D Lab Routine Stage 3a chronic kidney disease 02/28/2023 9:58 AM EST LIPID PANEL WITH DIRECT LDL IF TG IS HIGH Lab Routine Hyperlipidemia with target LDL less than 100 02/28/2023 9:58 AM EST VITAMIN B12 Lab Routine Encounter for long-term (current) use of medications 02/28/2023 9:58 AM EST TSH Lab Routine Acquired hypothyroidism 02/28/2023 9:58 AM EST Scheduled Procedures Name Priority Associated Diagnoses Date/Ti [...] 08/22/2023 08/21/2022, 07/30 CKD HGB USE SMARTSET 99663 08/22/202308/21, 02/20/2022, 09/12/2020, Additional history exists CKD PHOS USE SMARTSET 52880 08/22/202307/31, 08/08/2021, 06/21/2020, Additional history exists TSH [...] as of this encounter Visit Diagnoses Diagnosis Stage 3a chronic kidney disease Hyperlipidemia with target LDL less than 100 Other and unspecified hyperlipidemia Encounter for long-term (current) use of medications Encounter for long-term (current) use of other medications Acquired hypothyroidism Unspecified hypothyroidism documented in this encounter Care Teams Termination Clerk Relationship Specialty Start Date End Date Katherine Dumont MD [address] [place] [address] PCP - General 03/10/09 documented as of this encounter
--- OUTSIDE RECORDS SUMMARY | 2023-05-07 04:35 | External Medical Summary ---
Author Name Unknown Address Unknown Organization K01:LABORATORY [facility] [place] - [address] [place] [address] Laboratory Report Ordering Provider Test Date Status BRICE BAH 02/28/2023 09:58:13 Final Observation Date Value Abnormality Reference (Units ) Status Vitamin B12 02/28/2023 09:58:13 [phone] (pg/mL) Final Performing Location [facility] - [address] [place] [address]
--- OUTSIDE RECORDS SUMMARY | 2023-05-07 04:35 | External Medical Summary | Summary of Care ---
Author Name Unknown Organization [facility] Address [address] [place] [address] Phone [phone] Care Team Providers Care Cuff Maker Name Role Phone Katherine Dumont MD Primary Care Provider [phone] Reason for Visit * Reason Comments Follow Up 6mo return Encounter Details Date Type Department Care Team (Latest Contact Info) Description 02/28/2023 8:40 AM EST Office Visit General Internal Medicine [facility] [place] [address] [place] [address] Katherine Dumont MD [address] [facility] [address] Routine medical exam*; Stage 3a chronic kidney disease; Undifferentiated schizophrenia (HCC); Severe obesity with body mass index (BMI) of 35.0 to 39.9 with serious comorbidity (HCC); Recurrent major depressive disorder, in partial remission (HCC); Mild intellectual disability; Irritable bowel syndrome with diarrhea; Hyperlipidemia with target LDL less than 100; Hyperprolactinemia (HCC); Gastroparesis; Gastroesophageal reflux disease without esophagitis; Acquired hypothyroidism; EPILEPSY;NONCONV,W/O INTRACTABLE; assisted current use of anticoagulant therapy; Encounter for long-term (current) use of medications; Encounter for vision screening; Physical exam, annual Allergies No known active allergiesdocumented as of this encounter (statuses as of 03/08/2023) Medications Medication Sig Dispensed Refills Start Date End Date Status ACETAMINOPHEN 500 MG PO TABSIndications:Shou lder joint pain 1pill by mouth every 8 [...] Active Ondansetron HCl 4 MG Oral Tablet (Zofran)Indications: Nausea and vomiting, intractability of vomiting not specified, unspecified vomiting type Take 1 Tab by mouth every 6 hours as needed for Nausea. 30 Tab 0 09/12/2020 Active Omeprazole 20 MG Oral Capsule Delayed Release (PriLOSEC)Indication s:Gastroesophageal reflux disease without esophagitis Take 1 Cap [...] Active Atorvastatin Calcium 10 MG Oral Tablet (Lipitor)Indications :Hyperlipidemia with target LDL less than 100 take 1 tablet by mouth once daily 90 Tablet 2 12/03/2022 Active Levothyroxine Sodium 88 MCG Oral Tablet (Levoxyl)Indications :Acquired hypothyroidism take 1 tablet by mouth once daily 90 Tablet 2 12/26/2021 3 Discontinued Hospital, Clinic, or Other Facility Administered Medication Ordered Dose Route Frequency Start Date End Date Status paliperidone palmitate ER (Invega Sustenna) inj 234 mgIndications:Undifferentiate d schizophrenia (HCC) 234 mg IM [id number] 12/15/2020 Act risa documented as of this encounter (statuses as of 03/08/2023) Active Problems Problem Noted Date Diagnosed Date Severe obesity with body mas s index (BMI) of 35.0 to 39.9 with serious comorbidity 08/21/2022 Food insecurity 11/07/2020 Overview: Per [facility] Protocol Hyperprolactinemia 10/04/2020 Stage 3a [...] as of this encounter (statuses as of 03/08/2023) Resolved Problems Problem Noted Date Diagnosed Date [...] as of this encounter (statuses as of 03/08/2023) Immunizations Name Administration Dates Next Due COVID-19 [...] on file documented as of this encounter Last Filed Vital Signs Vital Sign Reading Time Taken Comments Blood Pressure 104/72 02/28/2023 8:50 AM EST Pulse 90 02/28/2023 8:50 AM EST Temperature 36.5 C (97.7 F) 02/28/2023 8:50 AM ES T Respiratory Rate - - Oxygen Saturation 99% 02/28/2023 8:50 AM EST Inhaled Oxygen Concentration - - Weight 99.6 kg (219 lb 8 oz) 02/28/2023 8:50 AM EST Height 162.6 cm (5' 4.02") 02/28/2023 8:50 AM ES T Body Mass Index 37.65 02/28/2023 8:50 AM EST documented in this encounter Progress Notes * Katherine Dumont MD - 02/28/2023 10:26 AM EST SUBJECTIVE: Veronica Saleh is a 43 year old female. Chief Complaint Patient presents with Follow Up 6mo return HPI: 45 YOF with PMH of Epilepsy followed by Dr Mckeon , hypothyroidism, GERD, CKD stage 3, scheitzophrenia, depression, mild MR presents here for complete physical Since last seen she has been feeling overall good Acute issue or concern: -needs form filled -fell on her ankle on 01/15/23 . Been using brace and being doing well Interim other medical issue : Doing well with mood Fam h/o CAD, DM,PVD,stroke: no Significant fam h/o cancer: breast ca runs in family Watching diet : Trying to Doing regular exercise: Walking for an hour but no real exercise Routine labs: uptodate Routine HM: uptodate Being followed by Derm: no Being followed by any other specialist: psychiatrist, nephro and neuro Other chronic medical problem: Reviewed and stable Menses been regular, every month, bleeding normal lasting for 3-4 days. Last pap 2 years and normal. No abnormal pap in past. Denies abnormal vaginal discharge, itching or urinary symptoms. Patient Active Problem List Diagnosis Code Acquired hypothyroidism E03.9 Recurrent major depressive disorder, in partial remission ([facility]) F33.41 EPILEPSY;NONCONV,W/O INTRACTABLE G40.309 Gastroparesis K31.84 Irritable bowel syndrome with diarrhea K58.0 Mild intellectual disability F70 Gastroesophageal reflux disease without esophagitis K21.9 Undifferentiated schizophrenia ([facility]) F20.3 Hyperlipidemia with target LDL less than 100 E78.5 Stage 3a chronic kidney disease N18.31 Hyperprolactinemia ([facility]) E22.1 Food insecurity Z59.41 Severe obesity with body mass index (BMI) of 35.0 to 39.9 with serious comorbidity ([facility]) E66.01 Current Outpatient Medications Medication Sig Dispense Refill ACETAMINOPHEN 500 MG PO TABS 1pill by mouth every 8 hours for 2 weeks then as needed for pain 100 Tab 0 Invega Sustenna 234 MG/1.5ML Intramuscular Suspension Prefilled Syringe Inject 234 mg into a large muscle every 4 weeks. FLUoxetine HCl 10 MG Oral Capsule (PROzac) Take 3 Capsules by mouth in the morning. LORazepam 0.5 MG Oral Tablet (ATIVAN) Take 1 Tablet by mouth at bedtime. Ondansetron HCl 4 MG Oral Tablet (Zofran) Take 1 Tab by mouth every 6 hours as needed for Nausea. 30 Tab 0 Omeprazole 20 MG Oral Capsule Delayed Release (PriLOSEC) Take 1 Cap by mouth daily. 1 hour before the first meal of the day 30 Cap 1 Levothyroxine Sodium 88 MCG Oral Tablet (Levoxyl) take 1 tablet by mouth once daily 90 Tablet 2 lamoTRIgine 150 MG Oral Tablet (LaMICtal) 1 twice a day 60 Tablet 5 Atorvastatin Calcium 10 MG Oral Tablet (Lipitor) take 1 tablet by mouth once daily 90 Tablet 2 AmLactin Foot Cream Therapy External Cream Apply to affected areas twice daily till it heals. 1 g 0 Current Facility-Administered Medications Medication Dose Route Frequency Provider Last Rate Last Admin paliperidone palmitate ER (Invega Sustenna) inj 234 mg 234 mg Intramuscular Q4 Weeks Sanjiv Mesa PA-C 234 mg at 02/19/23 1057 The patient's medication list was reviewed and updated as needed. 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 Schizoaffective disorder (HCC) Dr Pitts Social History Socioeconomic History Marital status: Single Spouse name: Not on file Number of children: Not on file Years of education: Not on file Highest education level: Not on file Occupational History Not on file Social Needs Financial resource strain: Not on file Food insecurity: Worry: Not on file Inability: Not on file Transportation needs: Medical: Not on file Non-medical: Not on file Tobacco Use Smoking status: Never Smoker Smokeless tobacco: Never Used Substance and Sexual Activity Alcohol use: Yes Comment: occasional Drug use: No Sexual activity: Not on file Lifestyle Physical activity: Days per week: Not on file Minutes per session: Not on file Stress: Not on file Relationships Social connections: Talks on phone: Not on file Gets together: Not on file Attends judaism service: Not on file Active member of club or organization: Not on file Attends meetings of clubs or organizations: Not on file Relationship status: Not on file Intimate partner violence: Fear of current or ex partner: Not on file Emotionally abused: Not on file Physically abused: Not on file Forced sexual activity: Not on file Other Topics Concern Not on file Social History Narrative Not on file Review of patient's allergies indicates: No Known Allergies Family History Problem Relation Age of Onset Colon cancer Grandfather (Paternal) Diabetes Aunt (Unspecified) Breast Cancer Cousin (Paternal) Breast Cancer Aunt (Paternal) Diabetes Other cousin on mom side Family Status Relation Status Age Mother Alive Father Alive REVIEW OF SYSTEMS: All 10 systems reviewed and negative except mentioned in HPI OBJECTIVE: BP 104/72 | Pulse 90 | Temp 36.5 C (97.7 F) (Tympanic) | Ht 1.626 m (5' 4.02") | Wt 99.6 kg (219 lb 8 oz) | SpO2 99% | BMI 37.65 kg/m | BSA 2.12 m PHYSICAL EXAM: General: alert, no distress, well nourished, well developed and obese Head: Normocephalic, No masses, lesions, tenderness or abnormalities Eye Exam: PERRLA, EOMI, Conjunctiva are pink and non-injected, sclera clear, strabismus + Ears: External ears normal, Canals clear, TM's Normal Oropharynx: no exudate, no erythema, lips, buccal mucosa, and tongue normal and mucous membranes are moist Neck: supple, no adenopathy, no bruits, thyroid normal size, non-tender, without nodularity Heart: regular rate & rhythm, no murmurs and no gallops Lungs: clear to auscultation Pulses: radial=2/4, carotid=2/4 w/o bruits, posterior tibial=2/4 Abdomen: abdomen soft, non-tender, normal bowel sounds and no masses or organomegaly Back: No CVA tenderness, no tenderness to percussion or palpation Extremities: no joint deformities, effusion, or inflammation, no edema, no clubbing, no cyanosis Neuro Exam: alert & oriented x 3 with fluent speech, no focal motor/sensory deficits, gait normal ASSESSMENT AND PLAN Routine medical exam (Primary) Routine preventive care discussed like - 1.Taking 2-3 serving of dairy product/day, if can't tolerate should take OTC calcium/vit D ( 600 mg/400 IU) twice a day 2.Healthy diet with low carb,low fat and high in fruits and vegetables discussed 3.Regular exercise at least 3/week of 30 min each 4.Wearing suncreen regularly to prevent skin cancer 5.Self breast exam monthly 6.Routine screening tests and vaccines discussed and recommended Stage 3a chronic kidney disease Avoid NSAID like ibuprofen,advil, aleve, naproxyn OTC. Drink plenty of fluid ( 60-64 oz/day ) . Will follow closely in future. Undifferentiated schizophrenia (HCC) Stable Continue current treatment as directed by psych Severe obesity with body mass index (BMI) of 35.0 to 39.9 with serious comorbidity (HCC) Recurrent major depressive disorder, in partial remission (HCC) Stable Continue current treatment as directed Mild intellectual disability Irritable bowel syndrome with diarrhea Stable Continue current treatment as directed Hyperlipidemia with target LDL less than 100 - LIPID PANEL WITH DIRECT LDL IF TG IS HIGH; Future; Expected date: 02/28/2023 Hyperprolactinemia (HCC) Gastroparesis Stable Continue current treatment as directed Gastroesophageal reflux disease without esophagitis Stable Continue current treatment as directed Acquired hypothyroidism - TSH; Future; Expected date: 02/28/2023 EPILEPSY;NONCONV,W/O INTRACTABLE assisted current use of anticoagulant therapy Encounter for long-term (current) use of medications - VITAMIN B12; Future; Expected date: 02/28/2023 Encounter for vision screening - VISUAL ACUITY SCREEN, NURSE/TECH Physical exam, annual - HEARING SCREEN Follow Up: Return in about 6 months (around 08/29/2023) for recheck. | For: recheck Treatment and plan discussed with patient and was given opportunity to ask questions which were answered . Patient verbalized understanding. Katherine Dumont MD.td 10:26 AM * Gabriel Hopper, Medical Student - 02/28/2023 8:55 AM EST -occasionally wear the brace, sometimes has pain, but not really significant -Jan 15 -Invega sustenna - TD, being watched right now, no meds -exercise: walking, using the bike- every other day -balanced diet, stays away from the junk food -November, had COVID -flu shot, COVID booster - got them -colonoscopy, mammogram UTD -July 2023 pap smear documented in this encounter Nursing Notes * Kerline Awan LPN - 02/28/2023 8:49 AM EST Chief Complaint Patient presents with Follow Up 6mo return documented in this encounter Plan of Treatment Upcoming Encounters Date Type Department Care Team (Late st Contact Info) Description 03/12/2023 3:30 PM EST Telemedicine Orthopaedics [facility] [address] [place] [address] SharerYasmine PA-C [address] [facility] [place] [address] 03/19/2023 11:00 AM EST Nurse Only Ancillary [facility] [address] [facility] [address] [place] [address] Nurse, Int Med [address] [facility] [place] [id number] 06/27/2023 10:00 AM EDT [facility] [address] [place] [address] 08/29/2023 11:40 AM EDT Office Visit General Internal Medicine [facility] [place] [address] [place] [address] Katherine Dumont MD [address] [facility] [place] [id number] 09/26/2023 11:20 AM EDT Office Visit Neurology [facility] [place] [address] [place] [address] Qing Jose MD [address] [facility] [place] [address] 02/06/2024 11:40 AM EST Office Visit General Internal Medicine [facility] [place] [address] [facility] [place] [address] Katherine Dumont MD [address] [facility] [place] [address] Scheduled Procedures Name Priority Associated Diagnoses Date/Ti me COLONOSCOPY FLEXIBLE PROXIMA L DIAGNOSTIC Recall History of colonic polyps Health Maintenance Due Date Last Done Comments HPV/Co-Test 2006 Depression Screening 05/20/2019 05/20/2018 COVID-19 Vaccine ( season) 2022 04/06/2021, 07/23/2020, 06/24/2020 Mammogram 06/22/2023 06/21/2022, 05/31, 06/14/2020, Additional history exists Albumin/Creatinine Ratio 08/22/2023 08/21/2022, 07/30 CKD HGB USE SMARTSET 45264 08/22/202308/21, 02/20/2022, 09/12/2020, Additional history exists GFR 08/29/2023 02/28/2023, 07/31, 02/20/2022, Additional history exists Cervical Cancer Screening 08/30/2023 Pap Smear 08/30/2023 08/29/2020, 01/31, 05/29/2016, Additional history exists CKD PHOS USE SMARTSET 74982 02/29/202402/01, 08/21/2022, 08/08/2021, Additional history exists TSH 02/29/2024 02/28/2023, 07/31, 02/20/2022, Additional history exists DTaP,Tdap,and Td Vaccines (4 - Td or Tdap) 11/15/2024 11/15/2014, 11/15/2014, 03/10/2010 Diabetes Screening 02/28/2026 02/28/2023, 0 08/21/2022, 08/21/2022, Additional history exists COLONOSCOPY-EVERY 5 YRS AGES 18-100 06/15/2027 06/14/2022, 06/14/2022 Lipid Panel 02/29/2028 02/28/2023, 05/2 05/2022, 02/20/2022, Additional history exists Pneumococcal Vaccine: Pediatrics [...] Not on filedocumented as of this encounter Procedures Procedure Name Priority Date/Time Associated Diagnosis Comments VISUAL ACUITY SCREEN, NURSE/TECH Routine 02/28/2023 Encounter for vision screening HEARING SCREEN Routine 02/28/2023 Physical exam, annual documented in this encounter Results * TSH (02/28/2023 9:58 AM EST) TSH 0.44 0.27 - 4.20 uIU/mL 02/28/2023 9:00 PM EST [facility] Blood Venous blood specimen / Unknown Venipuncture / Unknown 02/28/2023 9:58 AM EST 02/28/2023 9:58 AM EST Katherine Dumont MD LAB BLOOD ORDERABLES [facility] [address] [place] [address] * VITAMIN B12 (02/28/2023 9:58 AM EST) Vitamin B12 432 232 - 1,245 pg/mL 02/28/2023 9:00 PM EST [facility] Blood Venous blood specimen / Unknown Venipuncture / Unknown 02/28/2023 9:58 AM EST 02/28/2023 9:58 AM EST Katherine Dumont MD LAB BLOOD ORDERABLES [facility] [address] [place] [address] * LIPID PANEL WITH DIRECT LDL IF TG IS HIGH (02/28/2023 9:58 AM EST) Triglycerides 71 <=174 mg/dL 02/28/2023 8:23 PM EST [facility] Comment: Triglyceride Reference Ranges (mg/dL): <150 Acceptable 150-174 Borderline high 175-499 High >=500 Very high Cholesterol 155 <200 mg/dL 02/28/2023 8:23 PM EST [facility] Comment: Total Cholesterol Reference Ranges (mg/dL): <200 Desirable 200-239 Borderline high >=240 High HDL Cholesterol 60 >49 mg/dL 8:23 PM EST [facility] Comment: HDL Cholesterol Reference Ranges (mg/dL): >=60 High (Desirable) <50 Low (Undesirable) For Females <40 Low (Undesirable) For Males Non-HDL Cholesterol 95 <=159 mg/dL 02/28/2023 8:23 PM EST [facility] Comment: Non-HDL Cholesterol Reference Range (mg/dL): <100 Target level for high risk ASCVD patient <130 Optimal for general population 130-159 Near optimal for general population 160-189 Borderline High 190-219 High >=220 Very High LDL Cholesterol 81 <=129 mg/dL 02/28/2023 8:23 PM EST [facility] Comment: LDL Cholesterol Reference Ranges (mg/dL): <70 Target level for high risk ASCVD patient <100 Optimal for general population 100-129 Near optimal for general population 130-159 Borderline high 160-189 High >=190 Very high Blood Venous blood specimen / Unknown Venipuncture / Unknown 02/28/2023 9:58 AM EST 02/28/2023 9:58 AM EST Katherine Dumont MD LAB BLOOD ORDERABLES [facility] [address] [place] [address] * HEARING SCREEN (02/28/2023) Narrative Kerline Awan LPN - 02/28/2023 Hearing Screening Method: Audiometry Right ear: 125Hz: Pass 250Hz: Pass 500Hz: Pass 1000Hz: Pass 2000Hz: Pass 3000Hz: Pass 4000Hz: Pass Left ear: 125Hz: Pass 250Hz: Pass 500Hz: Pass 1000Hz: Pass 2000Hz: Pass 3000Hz: Pass 4000Hz: Pass Katherine Dumont MD MEDICINE * VISUAL ACUITY SCREEN, NURSE/TECH (02/28/2023) Narrative Kerline Awan LPN - 02/28/2023 Vision: OD 20/70 Corrective Lenses Yes OS 20/40 Corrective Lenses Yes OU 20/40 Corrective Lenses Yes Performed by Kerline Awan LPN. Katherine Dumont MD MEDICINE documented in this encounter Visit Diagnoses Diagnosis Routine medical exam- Primary Routine general medical examination at a health care facility Stage 3a chronic kidney disease Undifferentiated schizophrenia (HCC) Unspecified schizophrenia, unspecified condition Severe obesity with body mass index (BMI) of 35.0 to 39.9 with serious comorbidity (HCC) Recurrent major depressive disorder, in partial remission (HCC) Mild intellectual disability Mild intellectual disabilities Irritable bowel syndrome with diarrhea Irritable bowel syndrome Hyperlipidemia with target LDL less than 100 Other and unspecified hyperlipidemia Hyperprolactinemia (HCC) Other and unspecified anterior pituitary hyperfunction Gastroparesis Gastroesophageal reflux disease without esophagitis Esophageal reflux Acquired hypothyroidism Unspecified hypothyroidism EPILEPSY;NONCONV,W/O INTRACTABLE Generalized nonconvulsive epilepsy without mention of intractable epilepsy assisted current use of anticoagulant therapy Encounter for long-term (current) use of medications Encounter for long-term (current) use of other medications Encounter for vision screening Examination of eyes and vision Physical exam, annual Routine general medical examination at a health care facility documented in this encounter Care Teams Cuff Maker Relationship Specialty Start Date End Date Katherine Dumont MD [address] [place] [address] PCP - General 03/10/09 documented as of this encounter
--- OUTSIDE RECORDS SUMMARY | 2023-05-07 04:35 | External Medical Summary ---
Author Name Unknown Address Unknown Organization [id number]:[facility] - [address] [facility] [address] Laboratory Report Ordering Provider Test Date Status SRIDHAR BAHALI 02/28/2023 09:58:13 Final Observation Date Value Abnormality Reference (Units ) Status Triglyceride 02/28/2023 09:58:13 71 <=174 ( mg/dL) Final Triglyceride Reference Range s (mg/dL):
<150 Acceptable
150-174 Borderline high
175-499 High
>=500 Very high Cholesterol 02/28/2023 09:58:13 155 <200 (mg /dL) Final Total Cholesterol Reference Ranges (mg/dL):
<200 Desirable
200-239 Borderline high
>=240 High HDL 02/28/2023 09:58:13 60 >49 (mg/dL ) Final HDL Cholesterol Reference Ra nges (mg/dL):
>=60 High (Desirable)
<50 Low (Undesirable) For Females
<40 Low (Undesirable) For Males NON-HDL CHOLESTEROL 02/28/2023 09:58:13 95 <=159 (mg/dL) Final Non-HDL Cholesterol Referenc e Range (mg/dL):
<100 Target level for high risk ASCVD patient
<130 Optimal for general population
130-159 Near optimal for general population
160-189 Borderline High
190-219 High
>=220 Very High LDL, (calculated) 02/28/2023 09:58:13 81 <= 129 (mg/dL) Final LDL Cholesterol Reference Ra nges (mg/dL):
<70 Target level for high risk ASCVD patient
<100 Optimal for general population
100-129 Near optimal for general population
130-159 Borderline high
160-189 High
>=190 Very high Performing Location [facility] - [address] [facility] [address]
--- OUTSIDE RECORDS SUMMARY | 2023-05-07 04:35 | External Medical Summary | Summary of Care ---
Author Name Unknown Organization [facility] Address [address] [place] [address] Phone [phone] Care Team Providers Care Orthopedic Rn Name Role Phone Katherine Dumont MD Primary Care Provider [phone] Reason for Visit * Reason Onset Date Comments PPD Skin Test 03/01/2023 Medication Administration 03/01/2023 Flu an d/or Pneumo Inj Encounter Details Date Type Department Care Team (Late st Contact Info) Description 03/01/2023 9:00 AM EST Nurse Only Ancillary [facility] [place] [address] [place] [address] Nurse, Int Med 200 [facility] [place] [address] PPD Skin Test; Medication Administration (... Allergies No known active allergiesdocumented as of this encounter (statuses as of 03/01/2023) Medications Medication Sig Dispensed Refills Start Date [...] mgIndications:Undifferentiate d schizophrenia (HCC) 234 mg IM [id number] 12/15/2020 Act risa documented as of this encounter (statuses as of 03/01/2023) Active Problems Problem Noted Date Diagnosed Date [...] as of this encounter (statuses as of 03/01/2023) Resolved Problems Problem Noted Date Diagnosed Date [...] as of this encounter (statuses as of 03/01/2023) Immunizations Name Administration Dates Next Due COVID-19 [...] on file documented as of this encounter Patient Instructions * Patient Instructions* Kerline Awan, RICARDO - 03/01/2023 9:08 AM EST PATIENT INSTRUCTIONS FOR TUBERCULOSIS TESTING Also known as: Purified Protein Derivative (PPD) Whether you have active TB disease or simply test positive for TB infection, you must see a healthcare professional for evaluation and treatment. Tuberculosis (TB) is a disease that spreads through the air. It can cause serious health problems. TB is on the rise. To protect your health, get tested. Who Should Be Tested? Anyone can be exposed to TB. However, certain people are at higher risk for exposure, especially healthcare professionals, the homeless, and people coming from countries with high TB rates. People whose bodies are less able to fight off infections, such as the elderly and people with HIV and AIDS, are also more likely to get TB. If youre at risk for exposure, get tested regularly. The TB Skin Test The TB skin test tells you if the tuberculosis bacteria are in your body. Your healthcare professional places a small amount of solution under the skin with a needle to see if a reaction occurs. Keepin mind that although many people are infected with TB, very few develop TB disease. Getting Your TB Test Results Within 2-3 days after the test, youll be asked to return to your healthcare professional. Be sure to keep this appointment. Your test results will be evaluated during this visit. In some cases, a second test may be done to confirm results. What Do the Test Results Mean? Negative results mean you likely dont have the TB bacteria in your body. Positive results mean that you may have been infected with the TB bacteria. This doesnt necessarily mean you have active TB disease. More tests, such as chest x-rays, are needed to find out if youhave TB disease. [id number] [facility], [address] [place] [address], [place] [address]. All rights reserved. This information is not intended as a substitute for professional medical care. Always follow your healthcare professional's instructions. documented in this encounter Progress Notes * Kerline Awan LPN - 03/01/2023 9:08 AM EST Pt here for PPD administration. Has patient ever had a positive PPD Screening Test? No Has patient ever had the BCG tuberculosis vaccine? No If the patient responds yes to any of the questions, they are NOT eligible for a PPD. DO NOT administer the PPD Screening Test and Notify the provider. Time Out Procedure Performed: Yes Patient Identified (Ask Name/Date of ): Yes Immunization(s) verified: Yes, Immunization Name: PPD, VIS Sheet(s) given: Yes Verified Side and Site: Yes Verified Shot(s) with Parent(s)/Patient: Yes PPD applied at 9:08 AM and patient tolerated well. Patient to return to clinic in 48 hours for PPD Reading. PRE - ADMINISTRATION DOCUMENTATION Are you experiencing any cold symptoms or fever? No Have you had Guillain-[place] Syndrome (an illness that causes paralysis) within the last 6 weeks? No Have you had the flu shot in the past? YES Have you ever had a reaction to the flu shot? No Kerline Awan LPN, 03/01/2023 9:13 AM Immunization Administration Documentation Time Out Procedure Performed: Yes Patient Identified (Ask Name/Date of ): Yes Does the patient have a fever greater than 101 degrees today? No Patient allergic to latex? No VFC Stock: No Immunization(s) verified: Yes, Immunization Name: Flu, VIS Sheet(s) given: Yes Verified Side and Site: Yes Verified Shot(s) with Parent(s)/Patient: Yes documented in this encounter Plan of Treatment Upcoming Encounters Date Type Department Care Team (Late st Contact Info) Description 03/12/2023 3:30 PM EST Telemedicine Orthopaedics [facility] 132 [facility] [place] [address] SharerYasmine PA-C 132 [facility] [place] [address] 03/19/2023 11:00 AM EST Nurse Only [facility] [place] [address] [address] [place] [address] Nurse, Int Med [address] [facility] [place] [address] 06/27/2023 10:00 AM EDT Imaging Radiology [facility] 1st [facility], [address] [place] [address] 08/29/2023 11:40 AM EDT Office Visit General Internal Medicine [facility] [address] [place] [address] Katherine Dumont MD [address] [place], [place] [address] [facility] [place] [address] 09/26/2023 11:20 AM EDT Office Visit Neurology [facility] [place] [address] [place] [address] Qing Jose MD 200 [facility] [place] [address] 02/06/2024 11:40 AM EST Office Visit General Internal Medicine [place] [address] [place] [address] Katherine Dumont MD [address] [facility] [place], [place] [address] Scheduled Procedures Name Priority Associated Diagnoses Date/Ti me COLONOSCOPY FLEXIBLE PROXIMA L DIAGNOSTIC Recall History of colonic polyps Health Maintenance Due Date Last Done Comments HPV/Co-Test 2006 Depression Screening 05/20/2019 05/20/2018 COVID-19 Vaccine ( season) 2022 04/06/2021, 07/23/2020, 06/24/2020 Mammogram 06/22/2023 06/21/2022, 05/31, 06/14/2020, Additional history exists Albumin/Creatinine Ratio 08/22/2023 08/21/2022, 07/30 CKD HGB USE SMARTSET 32235 08/22/202308/21, 02/20/2022, 09/12/2020, Additional history exists GFR 08/29/2023 02/28/2023, 07/31, 02/20/2022, Additional history exists Cervical Cancer Screening 08/30/2023 Pap Smear 08/30/2023 08/29/2020, 01/31, 05/29/2016, Additional history exists CKD PHOS USE SMARTSET 21076 02/29/202402/01, 08/21/2022, 08/08/2021, Additional history exists TSH [...] as of this encounter Visit Diagnoses Diagnosis Screening-pulmonary TB- Primary Screening examination for pulmonary tuberculosis Need for prophylactic vaccination and inoculation against influenza documented in this encounter Care Teams Orthopedic Rn Relationship Specialty Start Date End Date Katherine Dumont MD [address] [place] [address] PCP - General 03/10/09 documented as of this encounter
--- OUTSIDE RECORDS SUMMARY | 2023-05-07 04:35 | External Medical Summary | Summary of Care ---
Author Name Unknown Organization [facility] Address [address] [place] [address] Phone [phone] Care Team Providers Care Installer Metal Flooring Name Role Phone Katherine Dumont MD Primary Care Provider [phone] Encounter Details Date Type Department Care Team (Late st Contact Info) Description 03/04/2023 10:30 AM EST Nurse Only Ancillary [facility] [place] [address] [place] [address] Nurse, Int Med [address] [facility] [place] [address] Allergies No known active allergiesdocumented as of [...] mgIndications:Undifferentiate d schizophrenia (HCC) 234 mg IM [id number] 12/15/2020 Act risa documented as of this [...] as of this encounter Progress Notes * Reza White CMA - 03/04/2023 9:16 AM EST PPD Read today. Results: Negative Interpretation: No evidence for exposure to TB. documented in this encounter Plan of Treatment Upcoming Encounters Date Type Department Care Team (Late st Contact Info) Description 03/12/2023 3:30 PM EST Telemedicine Orthopaedics [facility] [place] [address] SharerYasmine PA-C [address] [place] [address] 03/19/2023 11:00 AM EST Nurse Only Ancillary [facility] [place] [address] [place] [address] Nurse, Int Med [address] [place] [address] 06/27/2023 10:00 AM EDT Imaging Radiology [facility] 1st [facility], [place] [address] [place] [address] 08/29/2023 11:40 AM EDT Office Visit General Internal Medicine [facility] [address] [place] [address] Katherine Dumont MD [address] [place] [address] 09/26/2023 11:20 AM EDT Office Visit Neurology [facility] [address] [place] [address] Qing Jose MD [address] [facility] [place] [address] 02/06/2024 11:40 AM EST Office Visit General Internal Medicine [facility] [address] [place] [address] Katherine Dumont MD [address] [place] [address] Scheduled Procedures Name Priority Associated Diagnoses Date/Ti me COLONOSCOPY FLEXIBLE PROXIMA L DIAGNOSTIC Recall History of colonic polyps Health Maintenance Due Date Last Done Comments HPV/Co-Test 2006 Depression Screening 05/20/2019 05/20/2018 COVID-19 Vaccine ( season) 2022 04/06/2021, 07/23/2020, 06/24/2020 Mammogram 06/22/2023 06/21/2022, 05/31, 06/14/2020, Additional history exists Albumin/Creatinine Ratio 08/22/2023 08/21/2022, 07/30 CKD HGB USE SMARTSET 26348 08/22/202308/21, 02/20/2022, 09/12/2020, Additional history exists GFR 08/29/2023 02/28/2023, 07/31, 02/20/2022, Additional history exists Cervical Cancer Screening 08/30/2023 Pap Smear 08/30/2023 08/29/2020, 01/31, 05/29/2016, Additional history exists CKD PHOS USE SMARTSET 91602 02/29/202402/01, 08/21/2022, 08/08/2021, Additional history exists TSH [...] as of this encounter Visit Diagnoses Diagnosis Encounter for PPD skin test reading- Primary documented in this encounter Care Teams Installer Metal Flooring Relationship Specialty Start Date End Date Katherine Dumont MD [address] [place] [address] PCP - General 03/10/09 documented as of this encounter
--- OUTSIDE RECORDS SUMMARY | 2023-05-07 04:35 | External Medical Summary ---
Author Name Unknown Address Unknown Organization K01:[facility] - [address] [place] [address] Laboratory Report Ordering Provider Test Date Status KHALIF BAKER 02/28/2023 09:58:13 Final Deficient: <20 ng/mL
Ins ufficient: 20-29 ng/mL
Recommended/Optimum:30-50 ng/mL

Vitamin D intoxication is rare. If suspicious of Vitamin D toxicity, evaluation of serum Calcium and PTH is recommended. Observation Date Value Abnormality Reference (Units ) Status 25-OH Vitamin D total 02/28/2023 09:58:13 23 >19 (ng/mL) Final Performing Location [facility] - [address] [place] [address]
--- OUTSIDE RECORDS SUMMARY | 2023-05-07 04:35 | External Medical Summary ---
Author Name Unknown Address Unknown Organization K09:[facility] [place] [address] Laboratory Report Ordering Provider Test Date Status KHALIF BAKER 02/28/2023 09:58:13 Final Observation Date Value Abnormality Reference (Units ) Status BUN 02/28/2023 09:58:13 11 6-20 (mg/dL) Final Creatinine 02/28/2023 09:58:13 1.2 Above high normal 0.5-1.0 (mg/dL) Final Glomerular filtration rate/1.73 sq M.predicted [Volume Rate/Area] in Serum, Plasma or Blood by Creatinine-based formula (CKD-EPI) 02/28/2023 09:58:13 57 Below low normal >=60 (mL/min) Final eGFR is calculated based on the CKD-EPI 2020 equation SODIUM 02/28/2023 09:58:13 142 135-146 (m mol/L) Final Potassium 02/28/2023 09:58:13 4.6 3.5-5.1 (m mol/L) Final Cl 02/28/2023 09:58:13 104 98-107 (mm ol/L) Final CO2 02/28/2023 09:58:13 28 22-32 (mmo l/L) Final Anion gap 02/28/2023 09:58:13 10 7-15 (mmol /L) Final Glucose 02/28/2023 09:58:13 99 70-120 (mg /dL) Final Calcium 02/28/2023 09:58:13 10.2 8.4-10.2 ( mg/dL) Final Albumin 02/28/2023 09:58:13 4.3 3.8-5.0 (g /dL) Final Phosphate 02/28/2023 09:58:13 2.6 2.5-4.8 (m g/dL) Final Performing Location [facility] [place] [address]
--- OUTSIDE RECORDS SUMMARY | 2023-05-07 04:35 | External Medical Summary | Summary of Care ---
Author Name Unknown Organization [facility] Address [address] [place] [address] Phone [phone] Care Team Providers Care Director Of Parks And Recreation Name Role Phone Katherine Dumont MD Primary Care Provider [phone] Encounter Details Date Type Department Care Team (Late st Contact Info) Description 03/12/2023 3:30 PM EST Telemedicine Orthopaedics [facility] [address] [place] [address] SharerYasmine PA-C [address] [place] [address] Sprain of anterior talofibular ligament of right ankle, subsequent encounter*; Sprain of right foot, subsequent encounter Allergies No known active allergiesdocumented as of this encounter (statuses as of 03/12/2023) Medications Medication Sig Dispensed Refills Start Date [...] mgIndications:Undifferentiate d schizophrenia (HCC) 234 mg IM [id number] 12/15/2020 Act risa documented as of this encounter (statuses as of 03/12/2023) Active Problems Problem Noted Date Diagnosed Date [...] as of this encounter (statuses as of 03/12/2023) Resolved Problems Problem Noted Date Diagnosed Date [...] as of this encounter (statuses as of 03/12/2023) Immunizations Name Administration Dates Next Due COVID-19 [...] as of this encounter Progress Notes * Sharer, Yasmine Culver PA-C - 03/12/2023 3:32 PM EST After connecting to the patient via telephone, the patient was identified by name and date of . Patient was then informed that this was a telephone call only visit. The patient agreed to participate. Visit Disposition: Routine follow-up Total call duration was 3 minutes. History: Patient presents for 8 week follow up with right foot and ankle sprain. Patient has been attending PT and wearing ankle brace. Reports interval improvement. No difficulty with daily activities. . Assessment and Plan: Sprain of anterior talofibular ligament of right ankle, subsequent encounter (Primary) Sprain of right foot, subsequent encounter Continue PT and gradually increase activities as tolerated. Follow Up: Return if symptoms worsen or fail to improve. Yasmine Jacobo PA-C [facility] [place] [address] documented in this encounter Plan of Treatment Upcoming Encounters Date Type Department Care Team (Late st Contact Info) Description 03/19/2023 11:00 AM EST Nurse Only Ancillary [facility] [address] [place] [address] Nurse, Int Med [address] [place] [address] 06/27/2023 10:00 AM EDT Imaging Radiology [address] [place] [address] 08/29/2023 11:40 AM EDT Office Visit General Internal Medicine [facility] [address] [place] [address] Katherine Dumont MD 200 [facility] [place] [address] 09/26/2023 11:20 AM EDT Office Visit Neurology [facility] [address] [place] [address] Qing Jose MD 200 [place] [address] 02/06/2024 11:40 AM EST Office Visit General Internal Medicine [facility] [address] [place] [address] Katherine Dumont MD 200 [facility] [place] [address] Scheduled Procedures Name Priority Associated Diagnoses Date/Ti me COLONOSCOPY FLEXIBLE PROXIMA L DIAGNOSTIC Recall History of colonic polyps Health Maintenance Due Date Last Done Comments HPV/Co-Test 2006 Depression Screening 05/20/2019 05/20/2018 COVID-19 Vaccine (4 - 2022- season) 2022 04/06/2021, 07/23/2020, 06/24/2020 Mammogram 06/22/2023 06/21/2022, 05/31, 06/14/2020, Additional history exists Albumin/Creatinine Ratio 08/22/2023 08/21/2022, 07/30 CKD HGB USE SMARTSET 83834 08/22/202308/21, 02/20/2022, 09/12/2020, Additional history exists GFR 08/29/2023 02/28/2023, 07/31, 02/20/2022, Additional history exists Cervical Cancer Screening 08/30/2023 Pap Smear 08/30/2023 08/29/2020, 01/31, 05/29/2016, Additional history exists CKD PHOS USE SMARTSET 09284 02/29/202402/01, 08/21/2022, 08/08/2021, Additional history exists TSH [...] as of this encounter Visit Diagnoses Diagnosis Sprain of anterior talofibular ligament of right ankle, subsequent encounter- Primary Sprain of right foot, subsequent encounter documented in this encounter Care Teams Director Of Parks And Recreation Relationship Specialty Start Date End Date Katherine Dumont MD 200 [place] [address] PCP - General 03/10/09 documented as of this encounter
--- OUTSIDE RECORDS SUMMARY | 2023-05-07 04:36 | External Medical Summary | Summary of Care ---
Author Name Unknown Organization [facility] Address [address] [place] [address] Phone [phone] Care Team Providers Care Sap Architect Name Role Phone Katherine Dumont MD Primary Care Provider [phone] Reason for Visit * Reason Comments Cough C/o cough, sore thro at, sneezing, and nasal congestion. Sx started Saturday. Encounter Details Date Type Department Care Team (Latest Contact Info) Description 01/04/2023 12:20 PM EDT Office Visit General Internal Medicine [facility] [place] [address] [place] [address] Katherine Dumont MD [address] [place] [address] Upper respiratory tract infection, unspecified type*; Sore throat; Stage 3a chronic kidney disease; Undifferentiated schizophrenia (HCC); Severe obesity with body mass index (BMI) of 35.0 to 39.9 with serious comorbidity (HCC); Gastroesophageal reflux disease without esophagitis; Mild intellectual disability Allergies No known active allergiesdocumented as of this encounter (statuses as of 01/20/2023) Medications Medication Sig Dispensed Refills Start Date [...] once daily 90 Tablet 2 12/03/2022 Active QUEtiapine Fumarate 25 MG Oral Tablet (SEROquel) Take 1 Tablet by mouth at bedtime. 0 02/08/2022 3 Discontinued Hospital, Clinic, or Other Facility Administered Medication Ordered Dose Route Frequency Start Date End Date Status paliperidone palmitate ER (Invega Sustenna) inj 234 mgIndications:Undifferentiate d schizophrenia (HCC) 234 mg IM [id number] 12/15/2020 Act risa documented as of this encounter (statuses as of 01/20/2023) Active Problems Problem Noted Date Diagnosed Date Severe obesity with body mas s index (BMI) of 35.0 to 39.9 with serious comorbidity 08/21/2022 Food insecurity 11/07/2020 Overview: Per [facility] Protocol Hyperprolactinemia 10/04/2020 Stage 3a [...] as of this encounter (statuses as of 01/20/2023) Resolved Problems Problem Noted Date Diagnosed Date [...] as of this encounter (statuses as of 01/20/2023) Immunizations Name Administration Dates Next Due COVID-19 [...] Sign Reading Time Taken Comments Blood Pressure 102/72 01/04/2023 12:11 PM EDT Pulse 73 01/04/2023 12:11 PM EDT Temperature 36.6 C (97.9 F) 01/04/2023 12:11 PM E DT Respiratory Rate - - Oxygen Saturation 99% 01/04/2023 12:11 PM EDT Inhaled Oxygen Concentration - - Weight 99 kg (218 lb 3.2 oz) 01/04/2023 12:11 PM EDT Height - - Body Mass Index 37.43 08/21/2022 1:56 PM EDT documented in this encounter Progress Notes * Katherine Dumont MD - 01/04/2023 12:17 PM EDT Images from the original note were not included. History of Present Illness Veronica Saleh is a 47 year old female that presents for Cough (C/o cough, sore throat, sneezing, and nasal congestion. Sx started Saturday. ) Cough This is a new problem. The current episode started in the past 7 days (5 days). The problem has been unchanged. The cough is Non-productive. Associated symptoms include chills, nasal congestion, postnasal drip, rhinorrhea and a sore throat. Pertinent negatives include no fever, shortness of breath or wheezing. She has tried OTC cough suppressant for the symptoms. Her past medical history is signif icant for environmental allergies. There is no history of asthma. Physical Exam Vitals: 01/04/23 1211 Temp: 36.6 C (97.9 F) Pulse: 73 SpO2: 99% BP: 102/72 Physical Exam Constitutional: General: She is not in acute distress. Appearance: Normal appearance. HENT: Head: Normocephalic. Right Ear: Ear canal and external ear normal. Left Ear: Ear canal and external ear normal. Nose: Congestion and rhinorrhea present. Mouth/Throat: Mouth: Mucous membranes are moist. Pharynx: Posterior oropharyngeal erythema present. No oropharyngeal exudate. Cardiovascular: Rate and Rhythm: Normal rate and regular rhythm. Heart sounds: No murmur heard. No gallop. Pulmonary: Effort: Pulmonary effort is normal. Breath sounds: No stridor. No wheezing or rhonchi. Chest: Chest wall: No tenderness. Abdominal: General: There is no distension. Palpations: Abdomen is soft. There is no mass. Tenderness: There is no abdominal tenderness. Musculoskeletal: General: No swelling or tenderness. Cervical back: No rigidity or tenderness. Lymphadenopathy: Cervical: No cervical adenopathy. Neurological: Mental Status: She is alert. I have reviewed the following results: Assessment and Plan Upper respiratory tract infection, unspecified type Natural course of viral infection discussed Conservative measures like rest, fluid, humidifier in room Saline nasal drop 2-3 times a day OTC decongestant for congestion Tylenol every 6 hours for fever - RESPIRATORY PATHOGEN PANEL, PCR; Future - GROUP A STREP PCR - RESPIRATORY PATHOGEN PANEL, PCR Sore throat - STREP A SCREEN, POINT OF CARE (ENTER/EDIT) - RESPIRATORY PATHOGEN PANEL, PCR; Future - GROUP A STREP PCR - RESPIRATORY PATHOGEN PANEL, PCR Stage 3a chronic kidney disease Undifferentiated schizophrenia (HCC) Severe obesity with body mass index (BMI) of 35.0 to 39.9 with serious comorbidity (HCC) Gastroesophageal reflux disease without esophagitis Mild intellectual disability Wrap-Up Time: I spent a total of 20-29 minutes (exact time 25 mins) on the date of service in preparation, delivery, and documentation of the care provided to Veronica Saleh excluding any time spent in the performance of separately billed services. documented in this encounter Nursing Notes * Kerline Awan LPN - 01/04/2023 12:11 PM EDT Chief Complaint Patient presents with Cough C/o cough, sore throat, sneezing, and nasal congestion. Sx started Saturday. documented in this encounter Plan of Treatment Upcoming Encounters Date Type Department Care Team (Late st Contact Info) Description 01/22/2023 11:00 AM EDT Nurse Only Ancillary [facility] [place] [address] [facility] [place] [address] Nurse, Int Med [address] [place] [address] 01/29/2023 10:30 AM EDT Office Visit Orthopaedics [facility] [address] [place] [address] SharerYasmine PA-C [address] [place] [address] 01/30/2023 4:00 PM EDT Office Visit Nephrology, [facility] [address] [place] [address] Yojana Dinero PA-C [address] [place] [address] 02/28/2023 8:40 AM EST Office Visit General Internal Medicine [facility] [address] [facility] [place] [address] Katherine Dumont MD [address] [facility] [place] [address] 06/27/2023 10:00 AM EDT Imaging Radiology [address], [place] [address] [facility] [place] [address] 09/26/2023 11:20 AM EDT Office Visit Neurology [facility] [address] [facility] [place] [address] Qing Jose MD [address] [place] [address] Scheduled Procedures Name Priority Associated Diagnoses Date/Ti [...] 08/22/2023 08/21/2022, 07/30 CKD HGB USE SMARTSET 72318 08/22/202308/21, 02/20/2022, 09/12/2020, Additional history exists CKD PHOS USE SMARTSET 33772 08/22/202307/31, 08/08/2021, 06/21/2020, Additional history exists TSH [...] Procedure Name Priority Date/Time Associated Diagnosis Comments RESPIRATORY PATHOGEN PANEL, PCR Routine 01/04/2023 1:22 PM EDT Sore throat Upper respiratory tract infection, unspecified type GROUP A STREP PCR Routine 01/04/2023 1:2 2 PM EDT Sore throat Upper respiratory tract infection, unspecified type STREP A SCREEN, POINT OF CARE (ENTER/EDIT) Routine 01/04/2023 Sore throat documented in this encounter Results * GROUP A STREP PCR (01/04/2023 1:22 PM EDT) Pathologist [facility] Group A Strep PCR Result Negative. No Group A Streptococcus detected by PCR (amplified probe). Negative 01/04/2023 10:08 PM EDT LABORATORY [facility] Comment:This test was develo ped and its performance characteristics determined by [facility]. It has not been cleared or approved by the FDA. The laboratory is regulated under CLIA as qualified to perform high-complexity testing. This test is used for clinical purposes. It should not be regarded as investigational or for research. Swab Throat swab / Unknown 01/04/2023 1:22 PM EDT 01/04/2023 1:24 PM EDT Katherine Dumont MD LAB MICRO - GENERAL ORDERABLES LABORATORY [facility] [address] [place] [address] * (ABNORMAL) RESPIRATORY PATHOGEN PANEL, PCR (01/04/2023 1:22 PM EDT) Pathologist [facility] Adenovirus by PCR Negative Negative 023 6:18 PM EDT LABORATORY [facility] Coronavirus 229E by PCR Negative Negative 01/04/2023 6:18 PM EDT LABORATORY [facility] Coronavirus HKU1 by PCR Negative Negative 01/04/2023 6:18 PM EDT LABORATORY [facility] Coronavirus NL63 by PCR Negative Negative 01/04/2023 6:18 PM EDT LABORATORY [facility] Coronavirus OC43 by PCR Negative Negative 01/04/2023 6:18 PM EDT LABORATORY [facility] Coronavirus SARS-CoV-2 by PCR Negative Negative 01/04/2023 6:18 PM EDT LABORATORY [facility] Human Metapneumovirus by PCR Negative Negative 01/04/2023 6:18 PM EDT LABORATORY [facility] Rhinovirus/Enterov irus by PCR Positive(A) Negative 01/04/2023 6:18 PM EDT LABORATORY [facility] Comment:Rhinovirus/Enterovir us detected by PCR (amplified probe). Influenza A Virus by PCR Negative Negative 01/04/2023 6:18 PM EDT LABORATORY [facility] Influenza B Virus by PCR Negative Negative 01/04/2023 6:18 PM EDT LABORATORY [facility] Parainfluenza Virus 1 by PCR Negative Negative 01/04/2023 6:18 PM EDT LABORATORY [facility] Parainfluenza Virus 2 by PCR Negative Negative 01/04/2023 6:18 PM EDT LABORATORY [facility] Parainfluenza Virus 3 by PCR Negative Negative 01/04/2023 6:18 PM EDT LABORATORY [facility] Parainfluenza Virus 4 by PCR Negative Negative 01/04/2023 6:18 PM EDT LABORATORY [facility] Respiratory Syncytial Virus by PCR Negative Negative 01/04/2023 6:18 PM EDT LABORATORY [facility] Bordetella pertussis by PCR Negative Negative 01/04/2023 6:18 PM EDT LABORATORY [facility] Chlamydia pneumoniae by PCR Negative Negative 01/04/2023 6:18 PM EDT LABORATORY [facility] Mycoplasma pneumoniae by PCR Negative Negative 01/04/2023 6:18 PM EDT LABORATORY [facility] Bordetella parapertussis by PCR Negative Negative 01/04/2023 6:18 PM EDT LABORATORY [facility] Comment: The primers that detect Rhinovirus may cross react with some Enterorviruses. The validation of bronchial specimens, tracheal aspirates, and throats for this assay was developed and performance characteristics determined by [employer]. The validation of alternate specimen types has not been cleared or approved by the U.S. Food and Drug Administration (FDA). It has been determined that such clearance or approval is not necessary. Upper Respiratory Nasopharyngeal swab / Unknown Non-blood Collection / Unknown 01/04/2023 1:22 PM EDT 01/04/2023 1:24 PM EDT Katherine Dumont MD LAB MICRO - GENERAL ORDERABLES LABORATORY [facility] [address] [place] [address] * STREP A SCREEN, POINT OF CARE (ENTER/EDIT) (01/04/2023) Strep A Result Negative Negative Procedural Control Valid? Yes Lot Number [id number] Expiration Date 08/10/2023 Swab Throat swab / Unknown 01/04/2023 Katherine Dumont MD LAB POINT OF CARE TE ST ENTER/EDIT ORDERABLES documented in this encounter Visit Diagnoses Diagnosis Upper respiratory tract infection, unspecified type- Primary Sore throat Acute pharyngitis Stage 3a chronic kidney disease Undifferentiated schizophrenia (HCC) Unspecified schizophrenia, unspecified condition Severe obesity with body mass index (BMI) of 35.0 to 39.9 with serious comorbidity (HCC) Gastroesophageal reflux disease without esophagitis Esophageal reflux Mild intellectual disability Mild intellectual disabilities documented in this encounter Care Teams Sap Architect Relationship Specialty Start Date End Date Katherine Dumont MD [address] [place] [address] PCP - General 03/10/09 documented as of this encounter
--- OUTSIDE RECORDS SUMMARY | 2023-05-07 04:36 | External Medical Summary | Summary of Care ---
Author Name Unknown Organization [facility] Address [address] [place] [address] Phone [phone] Care Team Providers Care Organic Section Technical Lead Name Role Phone Katherine Dumont MD Primary Care Provider [phone] Encounter Details Date Type Department Care Team Description 01/15/2023 Hospital Encounter Radiology Film [facility] [address] [place], [place] [id number] Arrived Allergies No known active allergiesdocumented as of this encounter (statuses as of 01/18/2023) Medications Medication Sig Dispensed Refills Start Date [...] mgIndications:Undifferentiate d schizophrenia (HCC) 234 mg IM [id number] 12/15/2020 Act risa documented as of this encounter (statuses as of 01/18/2023) Active Problems Problem Noted Date Severe obesity with body mas s index (BMI) of 35.0 to 39.9 with serious comorbidity 08/21/2022 Food insecurity 11/07/2020 Overview: Per [facility] Protocol Hyperprolactinemia 10/04/2020 Stage 3a chronic kidney disease 02/08/20 Overview: Per CKD protocol Hyperlipidemia with target LDL less than 100 09/15/2013 Overview: ICD-10 update of inactive term Gastroesophageal reflux disease without esophagitis 06/11/2011 Mild intellectual disability 03/10/2009 Irritable bowel syndrome with diarrhea 0 05/22/2006 Gastroparesis 05/13/2006 EPILEPSY;NONCONV,W/O INTRACTABLE 007 Acquired hypothyroidism 06/29/2004 Recurrent major depressive disorder, in partial remission 06/29/2004 Undifferentiated schizophrenia documented as of this encounter (statuses as of 01/18/2023) Resolved Problems Problem Noted Date Resolved Date Body mass index (BMI) of 40.0 to 44.9 in adult 0 04/09/2022 08/21/2022 Overview: Per Obesity protocol Prediabetes 09/11/2021 09/13/2022 Overview: Per Prediabetes protocol Kidney disease, chronic, stage III (GFR 30-59 ml /min) 03/17/2013 02/11/2020 Overview: Per CKD protocol Cholelithiasis 01/11/2012 02/11/2012 CKD (chronic kidney disease) stage 3, GFR 30-59 ml/min 06/17/2014 documented as of this encounter (statuses as of 01/18/2023) Immunizations Name Administration Dates Next Due COVID-19 [...] = 0.6 oz pur e alcohol) occasional Food Insecurity Answer Date Recorded Within the past 12 months, y ou worried that your food would run out before you got money to buy more. Often true 03/17/2019 Within the past 12 months, t he food you bought just didn't last and you didn't have money to get more. Often true 03/17/2019 Sex Assigned at Date Recorded Not on file Job Start Date Occupation Industry Not on file Not on file Not on file documented as of this encounter Plan of Treatment Upcoming Encounters Date Type Specialty Care Team Description 01/22/2023 Nurse Only Ancillary Nurse, Int Med [address] [place] [address] 01/29/2023 Office Visit Orthopedics SharerYasmine PA-C [address] [place] [address] 01/30/2023 Office Visit Nephrology Yojana Dinero PA-C [address] [place] [address] 02/28/2023 Office Visit Internal Medicine Katherine Dumont MD [address] [place] [address] 06/27/2023 Imaging Radiology 09/26/2023 Office Visit Neurology Qing Jose MD [address] [place] [address] Scheduled Procedures Name Priority Associated Diagnoses Date/Ti [...] 08/22/2023 08/21/2022, 07/30 CKD HGB USE SMARTSET 38705 08/22/202308/21, 02/20/2022, 09/12/2020, Additional history exists CKD PHOS USE SMARTSET 91833 08/22/202307/31, 08/08/2021, 06/21/2020, Additional history exists TSH [...] Procedure Name Priority Date/Time Associated Diagnosis Comments RADIOLOGY EXAM - GENERAL RAD (IMAGES ONLY,NO REPORT) Routine 01/15/2023 10:35 AM EDT documented in this encounter Results * RADIOLOGY EXAM - GENERAL RAD (IMAGES ONLY,NO REPORT) (01/15/2023 10:35 AM EDT) 01/15/2023 10:3 5 AM EDT Narrative Scheduling, Silent - 01/17/2023 9:32 AM EDT This is an imaging study not interpreted or resulted by a [employer] or [employer] contracted radiologist. Yasmine Mehtar [facility] ([facility]) documented in this encounter Additional Health Concerns Infection Onset Date Last Indicated Resolved Time Enterovirus (resp)/Rhinovirus 01/04/2023 01/04/2023 documented as of this encounter Care Teams Organic Section Technical Lead Relationship Specialty Start Date End Date Katherine Dumont MD [address] [facility] [place] [address] PCP - General 03/10/09 documented as of this encounter
--- OUTSIDE RECORDS SUMMARY | 2023-05-07 04:36 | External Medical Summary | Summary of Care ---
Author Name Unknown Organization [facility] Address [address] [place] [address] Phone [phone] Care Team Providers Care Hand Icer Name Role Phone Katherine Dumont MD Primary Care Provider [phone] Reason for Referral * Evaluate & Treat - Unlimited Visits (Within 10 days (routine)) - Authorized Specialty Diagnoses / Procedures Referred By Rufina nguyen Referred To Contact Physical Therapy / Physical Medicine And Rehab Diagnoses Sprain of anterior talofibular ligament of right ankle, subsequent encounter Sprain of right foot, subsequent encounter SharerYasmine PA-C [address] [place] [address] Referral ID Status Reason Start Date Expiration Date Visits Requested Visits Authorized [id number] Authorized Specialty Services Required 3 [phone] Question Answer Referral Priority Within 10 days (routine) Where should this appointment be scheduled? External Comments Ankle sprain Proprioception and lateral ankle strengthening PT 2 x week for 4-6 weeks with HEP Reason for Visit * Reason Comments Follow Up R ankle Encounter Details Date Type Department Care Team (Late st Contact Info) Description 01/29/2023 10:30 AM EDT Office Visit Orthopaedics [facility] [address] [place] [address] SharerYasmine PA-C [address] [place] [address] Sprain of anterior talofibular ligament of right ankle, subsequent encounter*; Sprain of right foot, subsequent encounter Allergies No known active allergiesdocumented as of this encounter (statuses as of 01/29/2023) Medications Medication Sig Dispensed Refills Start Date [...] mgIndications:Undifferentiate d schizophrenia (HCC) 234 mg IM [id number] 12/15/2020 Act risa documented as of this encounter (statuses as of 01/29/2023) Active Problems Problem Noted Date Diagnosed Date [...] as of this encounter (statuses as of 01/29/2023) Resolved Problems Problem Noted Date Diagnosed Date [...] as of this encounter (statuses as of 01/29/2023) Immunizations Name Administration Dates Next Due COVID-19 [...] this encounter Patient Instructions * Patient Instructions* Sharer, Yasmine Culver PA-C - 01/29/2023 11:15 AM EDT Recommend gradually weaning walking boot Start physical and wean out of the boot Try over the counter topical Voltaren gel (Diclofenac Sodium) up to 4 times per day Ice as needed for pain and swelling documented in this encounter Progress Notes * Yasmine Jacobo PA-C - 01/29/2023 10:52 AM EDT Veronica Saleh is a 47 year old female who presents for consultation to [facility] for right ankle and foot injury/pain. Consult requested by Sofia Goodman PA-C. History: Patient presents for 2 week follow up with right foot and ankle sprain. Patient has been immobilized in walking boot. Reports interval improvement. Notes pain along the lateral ankle and foot with prolonged walking. No pain at rest or with light activities. Review of systems: All others negative except those noted above in HPI. Review of patient's allergies indicates: No Known Allergies Current Outpatient Medications Medication Sig Dispense Refill [...] the morning and 1 Tablet before bedtime. Ondansetron HCl 4 MG Oral Tablet [...] daily till it heals. 1 g 0 lamoTRIgine 150 MG Oral Tablet (LaMICtal) 1 twice a day 60 Tablet 5 Atorvastatin Calcium 10 MG Oral Tablet (Lipitor) take 1 tablet by mouth once daily 90 Tablet 2 Current Facility-Administered Medications Medication Dose Route Frequency Provider Last Rate Last Admin paliperidone palmitate ER (Invega Sustenna) inj 234 mg 234 mg Intramuscular Q4 Weeks Sanjiv Mesa PA-C 234 mg at 01/22/23 1059 Past Medical History: Diagnosis Date CKD (chronic kidney disease) stage 3, GFR 30-59 ml/min (HCC) Convulsions (HCC) 1 episode 2 or 3 years ago Depressive disorder, not elsewhere classified Dr Edmondson Gastroparesis 2006 T 1/2=148 min Gastroparesis Hypothyroidism Nontoxic uninodular goiter 2 mm 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 Schizoaffective disorder (HCC) Dr Pitts Patient Active Problem List Diagnosis Code Acquired hypothyroidism E03.9 Recurrent major depressive disorder, in partial remission (HCC) F33.41 EPILEPSY;NONCONV,W/O INTRACTABLE G40.309 Gastroparesis K31.84 Irritable bowel syndrome with diarrhea K58.0 Mild intellectual disability F70 Gastroesophageal reflux disease without esophagitis K21.9 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 Hyperlipidemia with target LDL less than 100 E78.5 Stage 3a chronic kidney disease N18.31 Hyperprolactinemia (HCC) E22.1 Food insecurity Z59.41 Severe obesity with body mass index (BMI) of 35.0 to 39.9 with serious comorbidity (HCC) E66.01 Past Surgical History: Procedure Laterality Date BREAST LESION,OTHER,EXCISION Left 2019 COLONOSCOPY, DIAGNOSTIC (RECTUM) 06/14/2022 multiple polyps/biopsies show adenomatous polyps/recall 5 years/COLONOSCOPY FLEXIBLE PROXIMAL DIAGNOSTIC performed by Rox Palacios MD at ENDOSCOPY [facility] EGD, FLEXIBLE, W/BIOPSY 04/12/2010 await bx EXC BREAST LESION RADMARK Left 07/02/2018 EXCISION OF BREAST LESION RADIOLOGICAL MARKER performed by Britney Lozada MD at OR [facility] EXPLORE/REPAIR DETACHED EYE MUSCLE LAPAROSCOPY; CHOLECYSTECTOMY 12/31/2011 Laparoscopic cholecystectomy 12/31/11 Dr. Kyle at [facility] LIGATE/CUT OVIDUCT(S) AT SURGERY Social History Socioeconomic History Marital status: Single Spouse name: Not on file Number of children: Not on file Years of education: Not on file Highest education level: Not on file Occupational History Not on file Tobacco Use Smoking status: Never Smokeless tobacco: Never Substance and Sexual Activity Alcohol use: Yes Comment: occasional Drug use: No Sexual activity: Not on file Other Topics Concern Not on file Social History Narrative Not on file Social Determinants of Health Financial Resource Strain: Not on file Food Insecurity: Food Insecurity Present (03/17/2019) Hunger Vital Sign Worried About Running Out of Food in the Last Year: Often true Ran Out of Food in the Last Year: Often true Transportation Needs: Not on file Physical Activity: Not on file Stress: Not on file Social Connections: Not on file Intimate Partner Violence: Not on file Housing Stability: Not on file Family History Problem Relation Age of Onset Colon cancer Grandfather (Paternal) Diabetes Aunt (Unspecified) Breast Cancer Cousin (Paternal) Breast Cancer Aunt (Paternal) Diabetes Other cousin on mom side Family History; none relevant to today's HPI Objective: [facility] 06/26/2022 09:05 06/26/2022 09:14 [facility] Date of Service 2022-06-28 2022-06-28 Appt Label now now [place] Quality of Life Survey Physical (Pt Reported) 51.4599 [place] Quality of Life Survey Mental (Pt Reported) 53.7273 Short Form 12 Quality of Life survey Physical Health (Pt Reported) 53.9481 Short Form 12 Quality of Life survey Mental Health (Pt Reported) 43.5177 Current Pain 2 Physical Exam There were no vitals filed for this visit. Estimated body mass index is 37.43 kg/m as calculated from the following: Height as of 08/21/22: 1.626 m (5' 4.02"). Weight as of 01/04/23: 99 kg (218 lb 3.2 oz). General: generally well-nourished and in no acute distress HEENT: normocephalic, atraumatic, sclera anicteric. Psych: mood and affect normal , cooperative Card: Peripheral pulses: normal in affected extremity (s) Resp: equal chest rise, non-tachypneic, non-labored breathing Skin: no rash, normal Neuro: Sensation: normal on affected extremity (s) Ankle Exam Inspection: mild swelling and ecchymosis along the foot. Skin intact. Palpation: Tenderness to palpation along anterior talofibular ligament, and throughout the lateral mid foot. Metatarsals are nontender. ROM: Dorsiflexion (normal 20): L - 20, R -20 Plantarflexion (normal 50): L - 50, R - 50 Inversion (normal 35): L - 35, R - 25 Eversion (normal 25): L - 25, R - 15 Strength: Dorsiflexion: L - 5/5, R - 5/5 Plantarflexion: L - 5/5, R - 5/5 Inversion: L - 5/5, R - 5/5 Eversion: L - 5/5, R - 5/5 Special Tests: Heel Cord tenderness: negative Bilateral Anterior Drawer: Negative Bilateral Talar Tilt: Negative Bilateral Squeeze test: Negative Bilateral Dorsiflexion-External Rotation: Negative Bilateral Knee and pelvis exam: Normal ROM and No Deformity bilateral Assessment and Plan: Sprain of anterior talofibular ligament of right ankle, subsequent encounter (Primary) - XR ANKLE 3 OR MORE VIEWS - PHYSICAL THERAPY REFERRAL OP - RETURN TO WORK OR SCHOOL Sprain of right foot, subsequent encounter - XR FOOT 3 OR MORE VIEWS - PHYSICAL THERAPY REFERRAL OP - RETURN TO WORK OR SCHOOL Right ankle and midfoot sprain with lucency of the calcaneal osteophyte and chronic appearing changes of the os peroneum. Recommend course of physical therapy and wean walking boot. May try Voltaren gel. Follow Up: Return in 6 weeks (on 03/12/2023) for Telephone Visit. | For: Telephone Visit Yasmine Jacobo PA-C [facility] [address] [facility] [address] documented in this encounter Nursing Notes * Linda Thompson LPN - 01/29/2023 10:45 AM EDT Pt presents with support person Marilee for 2 week follow up R ankle, DOI 01/15/2023 (fell down stairs). Wearing CAM boot, c/o continuing pain, a 7/10 today. documented in this encounter Plan of Treatment Upcoming Encounters Date Type Department Care Team (Late st Contact Info) Description 01/30/2023 4:00 PM EDT Office Visit Nephrology, [facility] [address] [facility] [place] [address] Yojana Dinero PA-C [address] [facility] [place] [address] 02/19/2023 11:00 AM EST Nurse Only Ancillary [facility] [place] [address] [facility] [place] [address] Nurse, Int Med [address] [facility] [place] [address] 02/28/2023 8:40 AM EST Office Visit General Internal Medicine [facility] [place] [address] [facility] [place] [address] Katherine Dumont MD [address] [facility] [place] [address] 03/12/2023 3:30 PM EST Telemedicine [facility] [address] [facility] [place] [address] Sharer, Yasmine Culver PA-C [address] [facility] [place] [address] 06/27/2023 10:00 AM EDT Imaging Radiology [facility] 132 [facility] [place] [address] 09/26/2023 11:20 AM EDT Office Visit Neurology [facility] [address] [facility] [place] [address] Qing Jose MD [address] [facility] [place] [address] Pending Results Name Type Priority Associated Diagnoses Date /Time XR ANKLE 3 OR MORE VIEWS Medical Imaging Routine Sprain of anterior talofibular ligament of right ankle, subsequent encounter 01/29/2023 11:01 AM EDT XR FOOT 3 OR MORE VIEWS Medical Imaging Routine Sprain of right foot, subsequent encounter 01/29/2023 11:03 AM EDT Scheduled Procedures Name Priority Associated Diagnoses Date/Ti me COLONOSCOPY FLEXIBLE PROXIMA L DIAGNOSTIC Recall History of colonic polyps Scheduled Referrals Name Type Priority Associated Diagnoses Orde r Schedule PHYSICAL THERAPY REFERRAL OP Referral Within 10 days (routine) Sprain of anterior talofibular ligament of right ankle, subsequent encounter Sprain of right foot, subsequent encounter Ordered: 01/29/2023 Health Maintenance Due Date Last Done Comments HPV/Co-Test 2006 Depression Screening 05/20/2019 05/20/2018 COVID-19 Vaccine ( season) 2022 04/06/2021, 07/23/2020, 06/24/2020 Influenza Vaccine (FLU shot) (#1) 2022 01/13/2020, 01/13/2020, 03/17/2019, Additional history exists GFR 02/21/2023 08/21/2022, 01/31, 08/08/2021, Additional history exists Mammogram 06/22/2023 06/21/2022, 05/31, 06/14/2020, Additional history exists Albumin/Creatinine Ratio 08/22/2023 08/21/2022, 07/30 CKD HGB USE SMARTSET 49494 08/22/202308/21, 02/20/2022, 09/12/2020, Additional history exists CKD PHOS USE SMARTSET 98947 08/22/202307/31, 08/08/2021, 06/21/2020, Additional history exists TSH [...] encounter documented in this encounter Care Teams Hand Icer Relationship Specialty Start Date End Date Katherine Dumont MD [address] [place] [address] PCP - General 03/10/09 documented as of this encounter
--- OUTSIDE RECORDS SUMMARY | 2023-05-07 04:36 | External Medical Summary | Summary of Care ---
Author Name Unknown Organization [facility] Address [address] [place] [address] Phone [phone] Care Team Providers Care Stave And Bolt Equalizer Name Role Phone Katherine Dumont MD Primary Care Provider [phone] Encounter Details Date Type Department Care Team (Late st Contact Info) Description 01/22/2023 11:00 AM EDT Nurse Only Ancillary [facility] [place] [address] [place] [address] Nurse, Int Med [address] [facility] [place] [address] Allergies No known active allergiesdocumented as of this encounter (statuses as of 01/22/2023) Medications Medication Sig Dispensed Refills Start Date [...] mgIndications:Undifferentiate d schizophrenia (HCC) 234 mg IM [id number] 12/15/2020 Act risa documented as of this encounter (statuses as of 01/22/2023) Active Problems Problem Noted Date Diagnosed Date [...] as of this encounter (statuses as of 01/22/2023) Resolved Problems Problem Noted Date Diagnosed Date [...] as of this encounter (statuses as of 01/22/2023) Immunizations Name Administration Dates Next Due COVID-19 [...] Progress Notes * Carole Carrasco LPN - 01/22/2023 11:05 AM EDT Pre-Administration Time Out Procedure Performed: Yes Patient Identified (Ask Name/Date of ): Yes Does the patient have a fever greater than 101 degrees today? No Patient allergic to latex? No Has the patient ever fainted after receiving an injection? No VFC Stock: No Injection(s) verified: Yes, Injection Name: Invega Sustenna 234 mg Verified Side and Site: Yes Verified Shot(s) with Parent(s)/Patient: Yes documented in this encounter Plan of Treatment Upcoming Encounters Date Type Department Care Team (Late st Contact Info) Description 01/29/2023 10:30 AM EDT Office Visit Orthopaedics [facility] [address] [place] [address] SharerYasmine PA-C [address] [place] [address] 01/30/2023 4:00 PM EDT Office Visit Nephrology, [facility] [address] [facility] [place] [address] ZemaYojana christensen PA-C [address] [facility] [place] [address] 02/19/2023 11:00 AM EST Nurse Only Ancillary [facility] [place] [address] [facility] [place] [address] Nurse, Int Med [address] [facility] [place] [address] 02/28/2023 8:40 AM EST Office Visit General Internal Medicine [facility] [place] [address] [facility] [place] [address] Kahterine Dumont MD [address] [facility] [place] [address] 06/27/2023 10:00 AM EDT Imaging Radiology [facility] [place] [facility] [address] 09/26/2023 11:20 AM EDT Office Visit Neurology [facility] [place] [address] [facility] [place] [address] Qing Jose MD [address] [facility] [place] [address] Scheduled Procedures Name Priority Associated Diagnoses Date/Ti [...] 08/22/2023 08/21/2022, 07/30 CKD HGB USE SMARTSET 40460 08/22/202308/21, 02/20/2022, 09/12/2020, Additional history exists CKD PHOS USE SMARTSET 12720 08/22/202307/31, 08/08/2021, 06/21/2020, Additional history exists TSH [...] Sustenna) inj 234 mg 234 mg, Intramuscular, [id number], First dose on Irma 12/15/20 at 1215, Until Discontinued Given 01/22/2023 10:59 AM EDT 234 mg Deltoid Left Upper Given 12/25/2022 10:59 AM EDT 234 mg D eltoid Left Upper Given 11/20/2022 10:01 AM EDT 234 mg D eltoid Left Upper documented in this encounter Additional Health Concerns Infection Onset Date Last Indicated Resolved Time Enterovirus (resp)/Rhinovirus 01/04/2023 01/04/2023 documented as of this encounter Care Teams Stave And Bolt Equalizer Relationship Specialty Start Date End Date Katherine Dumont MD 200 [place] [address] PCP - General 03/10/09 documented as of this encounter
--- OUTSIDE RECORDS SUMMARY | 2023-05-07 04:36 | External Medical Summary | Summary of Care ---
Author Name Unknown Organization [facility] Address [address] [place] [address] Phone [phone] Care Team Providers Care Executive Sales Assistant Name Role Phone Katherine Dumont MD Primary Care Provider [phone] Encounter Details Date Type Department Care Team Description 01/15/2023 Hospital Encounter Radiology Film File [address] [place], [place] [id number] Arrived Allergies No known active allergiesdocumented as [...] mgIndications:Undifferentiate d schizophrenia (HCC) 234 mg IM [id number] 12/15/2020 Act risa documented as of this [...] Ancillary Nurse, Int Med [address] [place] [address] 01/29/2023 Office Visit Orthopedics SharerYasmine PA-C [address] [place] [address] 01/30/2023 Office Visit Nephrology Yojana Dinero PA-C [address] [place] [address] 02/28/2023 Office Visit Internal Medicine Katherine Dumont MD [address] [place] [address] 06/27/2023 Imaging Radiology 09/26/2023 Office Visit Neurology Qing Jose MD [address] [place] [address] Scheduled Procedures Name Priority Associated Diagnoses Date/Ti [...] 08/22/2023 08/21/2022, 07/30 CKD HGB USE SMARTSET 70030 08/22/202308/21, 02/20/2022, 09/12/2020, Additional history exists CKD PHOS USE SMARTSET 69174 08/22/202307/31, 08/08/2021, 06/21/2020, Additional history exists TSH [...] GENERAL RAD (IMAGES ONLY,NO REPORT) Routine 01/15/2023 10:40 AM EDT documented in this encounter Results * RADIOLOGY EXAM - GENERAL RAD (IMAGES ONLY,NO REPORT) (01/15/2023 10:40 AM EDT) 01/15/2023 10:3 5 AM EDT Narrative Scheduling, Silent - 01/17/2023 9:35 AM EDT This is an imaging study not interpreted or resulted by a [employer] or [employer] contracted radiologist. Yasmine Mehtar [facility] ([facility]) documented in this encounter Additional Health Concerns Infection Onset Date Last Indicated Resolved Time Enterovirus (resp)/Rhinovirus 01/04/2023 01/04/2023 documented as of this encounter Care Teams Executive Sales Assistant Relationship Specialty Start Date End Date Katherine Dumont MD [address] [place] [address] PCP - General 03/10/09 documented as of this encounter
--- OUTSIDE RECORDS SUMMARY | 2023-05-07 04:36 | External Medical Summary | Summary of Care ---
Author Name Unknown Organization [facility] Address [address] [place] [facility] [place] [address] Phone [phone] Care Team Providers Care Algebraist Name Role Phone Katherine Dumont MD Primary Care Provider [phone] Reason for Visit * Reason Comments Chronic Kidney Disease (CKD) Encounter Details Date Type Department Care Team (Late st Contact Info) Description 01/30/2023 4:00 PM EDT Office Visit Nephrology, A[place]x [place] 200 [facility] [place] [address] ZeYojana acosta PA-C 200 [facility] [place] [address] Stage 3a chronic kidney disease*; Renal atrophy, left Allergies No known active allergiesdocumented as of this encounter (statuses as of 01/31/2023) Medications Medication Sig Dispensed Refills Start Date [...] mgIndications:Undifferentiate d schizophrenia (HCC) 234 mg IM [id number] 12/15/2020 Act risa documented as of this encounter (statuses as of 01/31/2023) Active Problems Problem Noted Date Diagnosed Date [...] disability 03/10/2009 Irritable bowel syndrome with diarrhea 02/21/200 7 Gastroparesis 05/13/2006 EPILEPSY;NONCONV,W/O INTRACTABLE 05/07/2006 Acquired hypothyroidism 06/29/2004 Recurrent major depressive disorder, in partial remission 06/29/2004 Undifferentiated schizophrenia documented as of this encounter (statuses as of 01/31/2023) Resolved Problems Problem Noted Date Diagnosed Date [...] as of this encounter (statuses as of 01/31/2023) Immunizations Name Administration Dates Next Due COVID-19 [...] Date Smoking Tobacco: Never Smokeless Tobacco: Never Tobacco Cessation:Counseling Given: Not Answered Alcohol Use Standard Drinks/Week Comments Yes 0 [...] Sign Reading Time Taken Comments Blood Pressure 120/83 01/30/2023 3:50 PM EDT Pulse 113 01/30/2023 3:50 PM EDT Temperature 36.4 C (97.6 F) 01/30/2023 3:50 PM ED T Respiratory Rate - - Oxygen Saturation - - Inhaled Oxygen Concentration - - Weight 99.1 kg (218 lb 6.4 oz) 01/30/2023 3:50 P M EDT Height - - Body Mass Index 37.46 08/21/2022 1:56 PM EDT documented in this encounter Progress Notes * Yojana Dinero PA-C - 01/30/2023 4:00 PM EDT Chief Complaint Patient presents with Chronic Kidney Disease (CKD) SUBJECTIVE: HPI:Patient is a 47 year old female with ckd stage G3-A1 without proteinuria with atrophic kidney and hx of lithium use here for follow up. Was on lithium from 2004 to 2010. No longer on lithium. pmhalso includes mild mr, schizophrenia, epilepsy, and hypothyroidism. No tobacco. No nsaids. No diabetes. Living independently with support from [facility]. Since last visit 08/23/21-Denies any recent hospitalizations, procedures or infections. Presents with caregiver Susi . Reports to be feeling good overall. No changes with medications - no issues or concerns Bout of Covid November 2022 NSAID: No Renal Stone: No Herbal Medication: No HISTORY: Current Outpatient Medications Medication Sig Dispense Refill [...] affected areas twice daily till it heals. (Patient not taking: Reported on 01/30/2023) 1 g 0 Current Facility-Administered Medications Medication Dose Route Frequency Provider Last Rate Last Admin paliperidone palmitate ER (Invega Sustenna) inj 234 mg 234 mg Intramuscular Q4 Weeks Sanjiv Mesa CARLOS Campbell 234 mg at 01/22/23 1059 Review of patient's allergies indicates: No Known Allergies Past Medical History: Diagnosis Date CKD (chronic kidney disease) stage 3, GFR 30-59 ml/min (HCC) Convulsions (HCC) 1 episode 2 or 3 years ago Depressive disorder, not elsewhere classified Dr Edmondson Gastroparesis 2006 T 1/2=148 min Gastroparesis Hypothyroidism Nontoxic uninodular goiter 2 mm 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 Schizoaffective disorder (HCC) Dr Pitts Past Surgical History: Procedure Laterality Date BREAST LESION,OTHER,EXCISION Left 2019 COLONOSCOPY, DIAGNOSTIC (RECTUM) 06/14/2022 multiple polyps/biopsies show adenomatous polyps/recall 5 years/COLONOSCOPY FLEXIBLE PROXIMAL DIAGNOSTIC performed by Rox Palacios MD at ENDOSCOPY [facility] EGD, FLEXIBLE, W/BIOPSY 04/12/2010 await bx EXC BREAST LESION RADMARK Left 07/02/2018 EXCISION OF BREAST LESION RADIOLOGICAL MARKER performed by Britney Lozada MD at OR [facility] EXPLORE/REPAIR DETACHED EYE MUSCLE LAPAROSCOPY; CHOLECYSTECTOMY 12/31/2011 Laparoscopic cholecystectomy 12/31/11 Dr. Kyle at [facility] LIGATE/CUT OVIDUCT(S) AT SURGERY Family History Problem Relation Age of Onset Colon cancer Grandfather (Paternal) Diabetes Aunt (Unspecified) Breast Cancer Cousin (Paternal) Breast Cancer Aunt (Paternal) Diabetes Other cousin on mom side Family history of renal disease:no Social History Socioeconomic History Marital status: Single Spouse name: Not on file Number of children: Not on file Years of education: Not on file Highest education level: Not on file Occupational History Not on file Tobacco Use Smoking status: Never Smokeless tobacco: Never Vaping Use Vaping Use: Never used Substance and Sexual Activity Alcohol use: Yes [...] on file Housing Stability: Not on file Ambulation: Without assisted device REVIEW OF SYSTEMS General: No fatigue, Respiratory: No cough,No wheezing, No shortness of breath Cardiovascular:No chest pain, No palpitations, and No syncope+Fall recently going down stairs Gastrointestinal: No nausea, vomiting, diarrhea No blood in stools Urinary: No dysuira, No hematuria. No flank pain Musculoskeletal: No edema Skin: No itching All other systems were reviewed and were negative. OBJECTIVE: BP 120/83 (BP Site: Right Arm, BP Position: Sitting, BP Cuff Size: Large) | Pulse 113 | Temp 36.4 C (97.6 F) (Tympanic) | Wt 99.1 kg (218 lb 6.4 oz) | BMI 37.46 kg/m | BSA 2.12 m Wt Readings from Last 1 Encounters: 01/30/23 99.1 kg (218 lb 6.4 oz) General appearance: alert, no apparent distress. HEAD: Normocephalic, No masses, lesions, tenderness Respiratory: clear to auscultation, no rhonchi, and no wheezes Heart: regular rate and regular rhythm Abdomen: abdomen soft, non-tender, and no CVA tenderness EXTREMITIES:+ right LE edema but with injury -walker boot present Skin: skin color, texture, turgor are normal NEURO: alert & oriented x 3 with fluent speech, no focal motor/sensory deficits No tremor Patient is a reliable historian of events Last 4 BP Readings: BP Readings from Last 4 Encounters: 01/30/23 120/83 01/04/23 102/72 09/20/22 118/70 08/21/22 114/82 Last 3 Weights: Wt Readings from Last 3 Encounters: 01/30/23 99.1 kg (218 lb 6.4 oz) 01/04/23 99 kg (218 lb 3.2 oz) 09/20/22 102.3 kg (225 lb 8 oz) Estimated body mass index is 37.46 kg/m as calculated from the following: Height as of 08/21/22: 1.626 m (5' 4.02"). Weight as of this encounter: 99.1 kg (218 lb 6.4 oz). LABS: Latest Reference Range & Units 12/22/19 12:21 06/21/20 11:29 09/12/20 11:09 08/08/21 14:09 02/20/22 14:43 08/21/22 14:37 Sodium 135 - 146 mmol/L 139 139 139 141 141 142 Potassium 3.5 - 5.1 mmol/L 4.5 4.3 4.4 4.1 4.0 4.4 Chloride 98 - 107 mmol/L 98 100 101 104 101 103 CO2 22 - 32 mmol/L 29 29 28 26 29 26 BUN 6 - 20 mg/dL 17 16 16 17 13 12 Creatinine 0.5 - 1.0 mg/dL 1.2 (H) 1.3 (H) 1.3 (H) 1.2 (H) 1.1 (H) 1.2 (H) Estimated Glomerular Filtration Rate >=60 mL/min 58.2 (L) 50.5 (L) 50.0 (L) 58 (L) 62 54 (L) Anion Gap 7 - 15 mmol/L 12 10 10 11 11 13 Glucose 70 - 120 mg/dL 88 95 100 101 98 98 Calcium 8.4 - 10.2 mg/dL 10.0 10.4 (H) 10.8 (H) 10.0 10.2 10.3 (H) Calcium, Ionized 1.13 - 1.32 mmol/L 1.27 Magnesium 1.5 - 2.6 mg/dL 2.0 Phosphorus 2.5 - 4.8 mg/dL 3.5 3.7 3.3 3.5 (H): Data is abnormally high (L): Data is abnormally low Latest Reference Range & Units 06/21/20 11:35 04/06/21 10:32 08/08/21 14:11 08/21/22 14:37 Albumin / Creatinine Ratio, Urine <30 mg/g Creat <10 <14 ALBUMIN / CREATININE RATIO, URINE Rpt Rpt Protein/ Creatinine Ratio, Urine <150 mg/g 63 62 Rpt: View report in Results Review for more information IMAGING: Notes Recorded by Katherine Dumont MD on 05/28/2012 at 1:33 PM Renal us- atrophic left kidney and slightly compensatory large rt kidney. Lab stable. Keep nephro appoint as scheduled ASSESSMENT/PLAN: The patient's most recent labs (from 6 months ago) were reviewed and the assessment/plan is as follows: Ckd stage 3a with creatinine of 1.1-1.2 without proteinuria from Congenital atrophic left kidney and hx of lithium use. No tobacco. No nsaids. No longer on lithium. No diabetes. No myeloma. Hepatitisnegative. Left kidney Severely Atrophic. Weight appears stable . Stage 3a chronic kidney disease (Primary) - RENAL FUNCTION PANEL; Future; Expected date: 01/30/2023 - 25-HYDROXY VITAMIN D; Future; Expected date: 01/30/2023 Renal atrophy, left Noted with US - no repeat imaging warranted at this time Discussed the importance of maintaining routine exams and labs Avoid medicines like aleve, advil, ibuprofen, aspirin more than 81 mg daily and other NSAIDS which are not good for kidney patients. Take only tylenol (acetaminophen) up to 2000 mg daily as needed for pain or as directed by your primary care provider. Reviewed previous status of kidney function and goals of care. All questions were answered. Follow-up: Return in about 1 year (around 01/31/2024). | Check-out note: With Dr. Tim Dinero PA-C [address] ASSESSMENT/PLAN: Stage 3a chronic kidney disease (Primary) Renal atrophy, left ckd stage 3 with creatinine of 1.2-1.3 without proteinuria from Congenital atrophic left kidney andhx of lithium use. No tobacco. No nsaids. No longer on lithium. No diabetes. No myeloma. Hepatitis negative. Left kidney Severely Atrophic. Concerning to see 60 lb weight gain in about 18 months Did explain to patient her mother as well as actuarial internship that such rapid weight gain can make her susceptible to diabetes which is the biggest risk factor for the kidney decline. Discussed about limiting sugar as much as possible specially with her sweetened beverages and sugary desserts Follow Up: Return in about 1 year (around 08/23/2022) for Clinic Visit. | For: Clinic Visit Darrell Dumont MD documented in this encounter Nursing Notes * Laurita Jensen LPN - 01/30/2023 3:48 PM EDT Return patient- fell and sprained ankle a few weeks ago. Pt had covid around labor day. Pt stated no swelling in legs. documented in this encounter Plan of Treatment Upcoming Encounters Date Type Department Care Team (Late st Contact Info) Description 02/19/2023 11:00 AM EST Nurse Only Ancillary [facility] [place] 200 [facility] [place] [address] Nurse, Int Med 200 A[address] [facility] [place] [address] 02/28/2023 8:40 AM EST Office Visit General Internal Medicine [facility] [address] [place] [address] Katherine Dumont MD [address] [place] [address] 03/12/2023 3:30 PM EST Telemedicine Orthopaedics [facility] [address] [place] [address] SharerYasmine PA-C 132 [place] [address] 06/27/2023 10:00 AM EDT Imaging Radiology [facility] [address] [place] [address] 09/26/2023 11:20 AM EDT Office Visit Neurology [facility] [place] [address] Qing Jose MD [address] [place] [address] 02/06/2024 11:40 AM EST Office Visit General Internal Medicine [facility] [place] [address] [place] [address] Katherine Dumont MD [address] [place] [address] Scheduled Orders Name Type Priority Associated Diagnoses Orde r Schedule RENAL FUNCTION PANEL Lab Routine Stage 3a chronic kidney disease Expected: 01/30/2023, Expires: 01/31/2024 25-HYDROXY VITAMIN D Lab Routine Stage 3a chronic kidney disease Expected: 01/30/2023, Expires: 01/31/2024 Scheduled Procedures Name Priority Associated Diagnoses Date/Ti [...] 08/22/2023 08/21/2022, 07/30 CKD HGB USE SMARTSET 01200 08/22/202308/21, 02/20/2022, 09/12/2020, Additional history exists CKD PHOS USE SMARTSET 48876 08/22/202307/31, 08/08/2021, 06/21/2020, Additional history exists TSH 08/22/2023 08/21/2022, 01/31, 08/08/2021, Additional history exists Cervical Cancer Screening 08/30/2023 Pap Smear 08/30/2023 08/29/2020, 01/31, 05/29/2016, Additional history exists DTaP,Tdap,and Td Vaccines (4 - Td or Tdap) 11/15/2024 11/15/2014, 11/15/2014, 03/10/2010 Diabetes Screening 08/21/2025 08/21/2022, 0 08/21/2022, 02/20/2022, Additional history exists COLONOSCOPY-EVERY 5 YRS AGES 18-100 06/15/2027 06/14/2022, 06/14/2022 Lipid Panel 08/22/2027 08/21/2022, 11/05/2021, 08/08/2021, Additional history exists Pneumococcal Vaccine: Pediatrics [...] Visit Diagnoses Diagnosis Stage 3a chronic kidney disease- Primary Renal atrophy, left Renal sclerosis, unspecified documented in this encounter Care Teams Algebraist Relationship Specialty Start Date End Date Katherine Dumont MD [address] [place] [address] PCP - General 03/10/09 documented as of this encounter
--- OUTSIDE RECORDS SUMMARY | 2023-05-07 04:36 | External Medical Summary | Summary of Care ---
Author Name Unknown Organization [facility] Address [address] [place] [address] Phone [phone] Care Team Providers Care Loan Interviewer Name Role Phone Katherine Dumont MD Primary Care Provider [phone] Reason for Visit * Reason Onset Date Comments Physical Therapy 01/30/2023 Encounter Details Date Type Department Care Team (Late st Contact Info) Description 01/30/2023 Telephone Orthopaedics [facility] [address] [place] [address] SharerYasmine PA-C [address] [place] [address] Physical Therapy Allergies No known active allergiesdocumented as of this encounter (statuses as of 01/30/2023) Medications Medication Sig Dispensed Refills Start Date [...] mgIndications:Undifferentiate d schizophrenia (HCC) 234 mg IM [id number] 12/15/2020 Act risa documented as of this encounter (statuses as of 01/30/2023) Active Problems Problem Noted Date Diagnosed Date [...] as of this encounter (statuses as of 01/30/2023) Resolved Problems Problem Noted Date Diagnosed Date [...] as of this encounter (statuses as of 01/30/2023) Immunizations Name Administration Dates Next Due COVID-19 [...] encounter Miscellaneous Notes * Telephone Encounter - Christine Abbott OSA - 01/30/2023 10:29 AM EDT Patient called requesting the physical therapy referral be faxed to [facility] at [phone]. Referral was printed and faxed per patients request. documented in this encounter Plan of Treatment Upcoming Encounters Date Type Department Care Team (Late st Contact Info) Description 01/30/2023 4:00 PM EDT Office Visit Nephrology, Alyx Humph[place] [address] [place] [address] Yojana Dinero PA-C [address] [place] [address] 02/19/2023 11:00 AM EST Nurse Only Ancillary [facility] [place] [address] [place] [address] Nurse, Int Med [address] [place] [address] 02/28/2023 8:40 AM EST Office Visit General Internal Medicine [facility] 200 [facility] [place] [address] Katherine Dumont MD [address] [facility] [place] [address] 03/12/2023 3:30 PM EST [facility]medicine [facility] [place] [address] Sharer, Yasmine Culver PA-C [address] [facility] [facility] [place] [address] 06/27/2023 10:00 AM EDT Imaging Radiology [address] [facility] [place] [address] 09/26/2023 11:20 AM EDT Office Visit Neurology [facility] 200 [facility] [place] [address] Qing Jose MD 200 [facility] [place] [address] Scheduled Procedures Name Priority Associated Diagnoses Date/Ti [...] 08/22/2023 08/21/2022, 07/30 CKD HGB USE SMARTSET 93261 08/22/202308/21, 02/20/2022, 09/12/2020, Additional history exists CKD PHOS USE SMARTSET 04538 08/22/202307/31, 08/08/2021, 06/21/2020, Additional history exists TSH [...] filedocumented as of this encounter Care Teams Loan Interviewer Relationship Specialty Start Date End Date Katherine Dumont MD [address] [facility] [place] [address] PCP - General 03/10/09 documented as of this encounter
--- OUTSIDE RECORDS SUMMARY | 2023-05-07 04:37 | External Medical Summary | Summary of Care ---
Author Name Unknown Organization [facility] Address [address] [place] [address] Phone [phone] Care Team Providers Care Barge Loader Name Role Phone Katherine Dumont MD Primary Care Provider [phone] Encounter Details Date Type Department Care Team Description 12/25/2022 Nurse Only Ancillary [facility] [place] [address] [place] [address] Nurse, Int Med 200 [facility] [place] [address] Arrived Allergies No known active allergiesdocumented as of this encounter (statuses as of 12/25/2022) Medications Medication Sig Dispensed Refills Start Date [...] once daily 90 Tablet 2 12/26/2021 Active QUEtiapine Fumarate 25 MG Oral Tablet (SEROquel) Take 1 Tablet by mouth at bedtime. 0 02/08/2022 Active AmLactin Foot Cream Therapy External CreamIndications:Dry [...] mgIndications:Undifferentiate d schizophrenia (HCC) 234 mg IM [id number] 12/15/2020 Act risa documented as of this encounter (statuses as of 12/25/2022) Active Problems Problem Noted Date Severe obesity with body mas s index (BMI) of 35.0 to 39.9 with serious comorbidity 08/21/2022 Food insecurity 11/07/2020 Overview: Per [facility] Protocol Hyperprolactinemia 10/04/2020 Stage 3a chronic kidney disease 02/08/20 20 Overview: Per CKD protocol Hyperlipidemia with target LDL less than 100 09/15/2013 Overview: ICD-10 update of inactive term Gastroesophageal reflux disease without esophagitis 06/11/2011 Mild intellectual disability 03/10/2009 Irritable bowel syndrome with diarrhea 0 05/22/2006 Gastroparesis 05/13/2006 EPILEPSY;NONCONV,W/O INTRACTABLE 007 Acquired hypothyroidism 06/29/2004 Recurrent major depressive disorder, in partial remission 06/29/2004 Undifferentiated schizophrenia documented as of this encounter (statuses as of 12/25/2022) Resolved Problems Problem Noted Date Resolved Date [...] as of this encounter (statuses as of 12/25/2022) Immunizations Name Administration Dates Next Due COVID-19 mRNA, LNP-s, No Pre serve, 2-Dose Series (Moderna) 07/23/2020,06/24/2020 COVID-19, mRNA, LNP-s, PF, B ooster, 100mcg/0.5mg (Moderna) 04/06/2021 Hepatitis B, 20+ yrs 04/14/2014,11/12/2013,10/08 PPD 12/01/2020,,07/15/2017,08/09,06/30/2013,05/29/2011,04/06/2009 Pneumococcal Polysaccharide PPV23 (Pneumovax) 03/22/2014 Seasonal Influenza Virus Vac cine, Unspecified Formulation 01/13/2020,03/17/2019,12/17/2017,02/07,11/15/2014,01/05/2014,12/28/2011 ,12/26/2011,03/12/2011,01/25/2010,03/03 Seasonal Influenza, PF, 6 mo ns & Above, IM , (Flulaval) 01/13/2020,03/17/2019,12/17/2017,02/07 Seasonal Influenza, Split, I IV3, With Preserve, [...] Progress Notes * Carole Carrasco LPN - 12/25/2022 11:02 AM EDT Pre-Administration Time Out Procedure Performed: Yes Patient Identified (Ask Name/Date of ): Yes Does the patient have a fever greater than 101 degrees today? No Patient allergic to latex? No Has the patient ever fainted after receiving an injection? No VFC Stock: No Injection(s) verified: Yes, Injection Name: Invega Sustenna 234mg Verified Side and Site: Yes Verified Shot(s) with Parent(s)/Patient: Yes documented in this encounter Plan of Treatment Upcoming Encounters Date Type Specialty Care Team Description 01/30/2023 Office Visit Nephrology Yojana Dinero PA-C [address] [place] [address] 02/28/2023 Office Visit Internal Medicine Katherine Dumont MD [address] [place] [address] 06/27/2023 Imaging Radiology 09/26/2023 Office Visit Neurology Qing Jose MD [address] [place] [address] Scheduled Procedures Name Priority Associated Diagnoses Date/Ti me COLONOSCOPY FLEXIBLE PROXIMA L DIAGNOSTIC Recall History of colonic polyps Health Maintenance Due Date Last Done Comments HPV/Co-Test 2006 Depression Screening 05/20/2019 05/20/2018 COVID-19 Vaccine (4 - Moderna series) 06/01/2021 04/06/2021, 07/23/2020, 06/24/2020 Influenza Vaccine (FLU shot) (#1) 2022 01/13/2020, 01/13/2020, 03/17/2019, Additional history exists GFR 02/21/2023 08/21/2022, 01/31, 08/08/2021, Additional history exists Mammogram 06/22/2023 06/21/2022, 05/31, 06/14/2020, Additional history exists Albumin/Creatinine Ratio 08/22/2023 08/21/2022, 07/30 CKD HGB USE SMARTSET 78461 08/22/202308/21, 02/20/2022, 09/12/2020, Additional history exists CKD PHOS USE SMARTSET 77788 08/22/202307/31, 08/08/2021, 06/21/2020, Additional history exists TSH [...] 08/22/2027 08/21/2022, 01/31, 08/08/2021, Additional history exists Hepatitis C Screening Completed 01/05/2014 Pneumococcal Vaccine: Pediatrics (0 to 5 Years) [...] Sustenna) inj 234 mg 234 mg, Intramuscular, [id number], First dose on Irma 12/15/20 at 1215, Until Discontinued Given 12/25/2022 10:59 AM EDT 234 mg Deltoid Left Upper Given 11/20/2022 10:01 AM EDT 234 mg D eltoid Left Upper Given 10/18/2022 10:22 AM EDT 234 mg D eltoid Left Upper documented in this encounter Care Teams Barge Loader Relationship Specialty Start Date End Date Katherine Dumont MD [address] [place] [address] PCP - General 03/10/09 documented as of this encounter
--- OUTSIDE RECORDS SUMMARY | 2023-05-07 04:37 | External Medical Summary | Summary of Care ---
Author Name Unknown Organization [facility] Address [address] [place] [address] Phone [phone] Care Team Providers Care Heel Top Lift Splitter Name Role Phone Katherine Dumont MD Primary Care Provider [phone] Encounter Details Date Type Department Care Team Description 11/20/2022 Nurse Only Ancillary [facility] [address] [place] [id number] Nurse, Int Med 200 [place] [address] Arrived Allergies No known active allergiesdocumented as of this encounter (statuses as of 11/20/2022) Medications Medication Sig Dispensed Refills Start Date [...] the day 30 Cap 1 12/16/2020 Active Atorvastatin Calcium 10 MG Oral Tablet (Lipitor)Indications: Hyperlipidemia with target LDL less than 100 take 1 tablet by mouth once daily 90 Tablet 3 12/12/2021 Active Additional Information Patient taking differently: Indications: in pm, Reported on 06/07/2022 Levothyroxine Sodium 88 MCG Oral Tablet (Levoxyl)Indications: [...] a day 60 Tablet 5 10/07/2022 Active Hospital, Clinic, or Other Facility Administered Medication Ordered Dose Route Frequency Start Date End Date Status paliperidone palmitate ER (Invega Sustenna) inj 234 mgIndications:Undifferentiate d schizophrenia (HCC) 234 mg IM [id number] 12/15/2020 Act risa documented as of this encounter (statuses as of 11/20/2022) Active Problems Problem Noted Date Severe obesity [...] as of this encounter (statuses as of 11/20/2022) Resolved Problems Problem Noted Date Resolved Date [...] as of this encounter (statuses as of 11/20/2022) Immunizations Name Administration Dates Next Due COVID-19 mRNA, LNP-s, No Pre serve, 2-Dose Series (Moderna) 07/23/2020,06/24/2020 Covid-19 Mrna, Lnp-s, No Pre serve, Booster (Moderna) 04/06/2021 Hepatitis B, 20+ yrs 04/14/2014,11/12/2013,10/08 PPD 12/01/2020, 0,07/15/2017,08/09,06/30/2013,05/29/2011,04/06/2009 Pneumococcal Polysaccharide PPV23 (Pneumovax) 03/22/2014 Seasonal Influenza [...] as of this encounter Progress Notes * Bahman Smith LPN - 11/20/2022 9:54 AM EDT Pre-Administration Time Out Procedure Performed: Yes Patient Identified (Ask Name/Date of ): Yes Does the patient have a fever greater than 101 degrees today? No Patient allergic to latex? No Has the patient ever fainted after receiving an injection? No VFC Stock: No Injection(s) verified: Yes, Injection Name: Invega Verified Side and Site: Yes Verified Shot(s) with Parent(s)/Patient: Yes documented in this encounter Plan of Treatment Upcoming Encounters Date Type Specialty Care Team Description 12/25/2022 Nurse Only Ancillary Nurse, Int Med [address] [place] [address] 01/30/2023 Office Visit Nephrology Yojana Dinero PA-C [address] [place] [address] 02/28/2023 Office Visit Internal Medicine Katherine Dumont MD 200 [facility] [place], [place] [address] 06/27/2023 Imaging Radiology 09/26/2023 Office Visit Neurology Qing Jose MD 200 [facility] [place] [address] Scheduled Procedures Name Priority Associated Diagnoses Date/Ti me COLONOSCOPY FLEXIBLE PROXIMA L DIAGNOSTIC Recall History of colonic polyps Health Maintenance Due Date Last Done Comments HPV/Co-Test 2006 Depression Screening, Annual for Pts 12 and Over 05/20/2019 05/20/2018 COVID-19 Vaccine (4 - Moderna series) 06/01/2021 04/06/2021, 07/23/2020, 06/24/2020 Influenza Vaccine (FLU shot) (#1) 2022 01/13/2020, 01/13/2020, 03/17/2019, Additional history exists GFR 02/21/2023 08/21/2022, 01/31, 08/08/2021, Additional history exists Mammogram 06/22/2023 06/21/2022, 05/31, 06/14/2020, Additional history exists Albumin/Creatinine Ratio 08/22/2023 08/21/2022, 07/30 CKD HGB USE SMARTSET 63926 08/22/202308/21, 02/20/2022, 09/12/2020, Additional history exists CKD PHOS USE SMARTSET 50931 08/22/202307/31, 08/08/2021, 06/21/2020, Additional history exists TSH [...] Sustenna) inj 234 mg 234 mg, Intramuscular, [id number], First dose on Irma 12/15/20 at 1215, Until Discontinued Given 11/20/2022 10:01 AM EDT 234 mg Deltoid Left Upper Given 10/18/2022 10:22 AM EDT 234 mg D eltoid Left Upper Given 09/18/2022 1:34 PM EDT 234 mg De ltoid Left Upper documented in this encounter Care Teams Heel Top Lift Splitter Relationship Specialty Start Date End Date Katherine Dumont MD [address] [place] [address] PCP - General 03/10/09 documented as of this encounter
--- OUTSIDE RECORDS SUMMARY | 2023-05-07 04:37 | External Medical Summary | Summary of Care ---
Author Name Unknown Organization [facility] Address [address] [place] [address] Phone [phone] Care Team Providers Care Digital Solutions Architect Name Role Phone Katherine Dumont MD Primary Care Provider [phone] Encounter Details Date Type Department Care Team Description 01/15/2023 Orders Only Orthopaedics [facility] [address] [place] [address] SharerYasmine PA-C [address] [place] [address] Allergies No known active allergiesdocumented as of this encounter (statuses as of 01/17/2023) Medications Medication Sig Dispensed Refills Start Date [...] mgIndications:Undifferentiate d schizophrenia (HCC) 234 mg IM [id number] 12/15/2020 Act risa documented as of this encounter (statuses as of 01/17/2023) Active Problems Problem Noted Date Severe obesity [...] as of this encounter (statuses as of 01/17/2023) Resolved Problems Problem Noted Date Resolved Date [...] as of this encounter (statuses as of 01/17/2023) Immunizations Name Administration Dates Next Due COVID-19 [...] Only Ancillary Nurse, Int Med [address] [facility] [address] 01/29/2023 Office Visit Orthopedics Sharer, Yasmine Culver PA-C [address] [place] [address] 01/30/2023 Office Visit Nephrology Yojana Dinero PA-C [address] [place] [address] 02/28/2023 Office Visit Internal Medicine Katherine Dumont MD [address] [place] [address] 06/27/2023 Imaging Radiology 09/26/2023 Office Visit Neurology Qing Jose MD [address] [place] [address] Scheduled Procedures Name Priority Associated Diagnoses Date/Ti me COLONOSCOPY FLEXIBLE PROXIMA L DIAGNOSTIC Recall History of colonic polyps Health Maintenance Due Date Last Done Comments HPV/Co-Test 2006 Depression Screening 05/20/2019 05/20/2018 COVID-19 Vaccine ( - season) 2022 04/06/2021, 07/23/2020, 06/24/2020 Influenza Vaccine (FLU shot) (#1) 2022 01/13/2020, 01/13/2020, 03/17/2019, Additional history exists GFR 02/21/2023 08/21/2022, 01/31, 08/08/2021, Additional history exists Mammogram 06/22/2023 06/21/2022, 05/31, 06/14/2020, Additional history exists Albumin/Creatinine Ratio 08/22/2023 08/21/2022, 07/30 CKD HGB USE SMARTSET 35760 08/22/202308/21, 02/20/2022, 09/12/2020, Additional history exists CKD PHOS USE SMARTSET 26452 08/22/202307/31, 08/08/2021, 06/21/2020, Additional history exists TSH [...] study not interpreted or resulted by a [employer] or [employer] contracted radiologist. Yasmine Jacobo PA-C RADIOLOGY (RAD [facility]) documented in this encounter Additional Health Concerns Infection Onset Date Last Indicated Resolved Time Enterovirus (resp)/Rhinovirus 01/04/2023 01/04/2023 documented as of this encounter Care Teams Digital Solutions Architect Relationship Specialty Start Date End Date Katherine Dumont MD 200 [place] [address] PCP - General 03/10/09 documented as of this encounter
--- OUTSIDE RECORDS SUMMARY | 2023-05-07 04:37 | External Medical Summary ---
Author Name Unknown Address Unknown Organization K01:LABORATORY [facility] - [address] [place] [address] Ave[address] [facility] [address] Laboratory Report Ordering Provider Test Date Status BRICE BAH 01/04/2023 13:22:49 Final Observation Date Value Abnormality Reference (Units) Status Streptococcus pyogenes DNA [Presence] in Throat by CHERISE with probe detection 01/04/2023 13:22:49 Negative. No Group A Streptococcus detected by PCR (amplified probe). Negative Final This test was developed and its performance characteristics determined by [facility] [employer]. It has not been cleared or approved by the FDA. The laboratory is regulated under CLIA as qualified to perform high- complexity testing. This test is used for clinical purposes. It should not be regarded as investigational or for research. Performing Location LABORATORY [facility] - [facility] [address] [facility] [address] [facility] [address]
--- OUTSIDE RECORDS SUMMARY | 2023-05-07 04:37 | External Medical Summary | Summary of Care ---
Author Name Unknown Organization [facility] Address [address] [place] [address] Phone [phone] Care Team Providers Care Manager Army Name Role Phone Katherine Dumont MD Primary Care Provider [phone] Encounter Details Date Type Department Care Team Description 12/25/2022 Nurse Only Ancillary [facility] [place] [address] [place] [address] Nurse, Int Med 200 [facility] [place] [address] Allergies No known active allergiesdocumented as of [...] mgIndications:Undifferentiate d schizophrenia (HCC) 234 mg IM [id number] 12/15/2020 Act risa documented as of this [...] Nurse, Int Med [address] [place] [address] 01/30/2023 Office Visit Nephrology Yojana Dinero PA-C [address] [place] [address] 02/28/2023 Office Visit Internal Medicine Katherine Dumont MD 200 [facility] [place], [place] [address] 06/27/2023 Imaging Radiology 09/26/2023 Office Visit Neurology Qing Jose MD 200 [facility] [place] [address] Scheduled Procedures Name Priority Associated Diagnoses Date/Ti [...] 08/22/2023 08/21/2022, 07/30 CKD HGB USE SMARTSET 65671 08/22/202308/21, 02/20/2022, 09/12/2020, Additional history exists CKD PHOS USE SMARTSET 30373 08/22/202307/31, 08/08/2021, 06/21/2020, Additional history exists TSH [...] Sustenna) inj 234 mg 234 mg, Intramuscular, [id number], First dose on Irma 12/15/20 at 1215, Until Discontinued Given 12/25/2022 10:59 AM EDT 234 mg Deltoid Left Upper Given 11/20/2022 10:01 AM EDT 234 mg D eltoid Left Upper Given 10/18/2022 10:22 AM EDT 234 mg D eltoid Left Upper documented in this encounter Care Teams Manager Army Relationship Specialty Start Date End Date Katherine Dumont MD 200 [facility] [place] [address] PCP - General 03/10/09 documented as of this encounter
--- OUTSIDE RECORDS SUMMARY | 2023-05-07 04:37 | External Medical Summary | Summary of Care ---
Author Name Unknown Organization [facility] Address [address] [place] [address] Phone [phone] Care Team Providers Care Clinic Md Associate Name Role Phone Katherine Dumont MD Primary Care Provider [phone] Reason for Visit * Reason Comments NEW PATIENT R foot injury Encounter Details Date Type Department Care Team Description 01/15/2023 Office Visit Orthopaedics [facility] [address] [facility] [place] [address] Sharer, Yasmine Culver PA-C [address] [place] [address] Sprain of anterior talofibular ligament of right ankle, initial encounter*; Sprain of right foot, initial encounter Allergies No known active allergiesdocumented as of this encounter (statuses as of 01/15/2023) Medications Medication Sig Dispensed Refills Start Date [...] mgIndications:Undifferentiate d schizophrenia (HCC) 234 mg IM [id number] 12/15/2020 Act risa documented as of this encounter (statuses as of 01/15/2023) Active Problems Problem Noted Date Severe obesity [...] as of this encounter (statuses as of 01/15/2023) Resolved Problems Problem Noted Date Resolved Date [...] as of this encounter (statuses as of 01/15/2023) Immunizations Name Administration Dates Next Due COVID-19 [...] this encounter Patient Instructions * Patient Instructions* Yasmine Jacobo PA-C - 01/15/2023 2:50 PM EDT Ankle and mid foot sprain Recommend walking boot to wear when active for the next 2 weeks Ice 20-30 min 4-5 times a day Elevate injured extremity at the level of your heart to reduce swelling documented in this encounter Progress Notes * Yasmine Jacobo PA-C - 01/15/2023 2:15 PM EDT eVronica Saleh is a 47 year old female who presents for consultation to [facility] for right ankle and foot injury/pain. Consult requested by Sofia Goodman PA-C. History: Veronica Saleh reports that right foot and ankle pain started on 01/15/2023. Patient states she felldown the stairs injuring her right foot and ankle. Reports pain along the lateral aspect. Reports difficulty with weight-bearing she has tried ice and Tylenol with some relief. She was seen at [facility] where x-rays were obtained and reportedly showed a calcaneus fracture. She denies any previous ankle injuries. 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 [facility] LIGATE/CUT OVIDUCT(S) AT SURGERY Social History [...] Resource Strain: Not on file Food Insecurity: Not on file Transportation Needs: Not on file Physical Activity: [...] Service 2022-06-28 2022-06-28 Appt Label now now [facility] Quality of Life Survey Physical (Pt Reported) 51.4599 [facility] Quality of Life Survey Mental (Pt Reported) [...] on affected extremity (s) Ankle Exam Inspection: Moderate swelling and ecchymosis along the lateral ankle and foot. Skin intact. Palpation: Tenderness to palpation along anterior talofibular ligament, calcaneofibular ligament and throughout the lateral mid foot. Metatarsals are nontender. ROM: Dorsiflexion (normal 20): L - 20, R -10 Plantarflexion (normal 50): L - 50, R - 40 Inversion (normal 35): L - 35, R - 15 Eversion (normal 25): L - 25, R [...] exam: Normal ROM and No Deformity bilateral Radiology (I have personally reviewed the following films): X-ray of right foot and ankle obtained from outside facility was reviewed with patient. Those x-ray show lucency of the calcaneal osteophyte and chronic appearing fracture of the os peroneum. Assessment and Plan: Sprain of anterior talofibular ligament of right ankle, initial encounter (Primary) - RETURN TO WORK OR SCHOOL Sprain of right foot, initial encounter Right ankle and midfoot sprain with lucency of the calcaneal osteophyte and chronic appearing changes of the os peroneum. Recommend high tide walking boot to wear when active. Patient may weightbear as tolerated. Encouraged ice and elevation. Patient will follow-up in 2 weeks. Yasmine Jacobo PA-C [facility] [place] [address] documented in this encounter Nursing Notes * [facility] - 01/15/2023 1:18 PM EDT Pt presents today for R foot injury, fell down the stairs 01/14/23 DOI Here with [facility], has services through the arc [facility] documented in this encounter Plan of Treatment Upcoming Encounters Date Type Specialty Care Team Description 01/22/2023 Nurse Only Ancillary Nurse, Int Med [address] [place] [address] 01/29/2023 Office Visit Orthopedics Yasmine Jacobo PA-C [address] [place] [address] 01/30/2023 Office Visit Nephrology Yojana Dinero PA-C [address] [place] [address] 02/28/2023 Office Visit Internal Medicine Katherine Dumont MD [address] [place] [address] 06/27/2023 Imaging Radiology 09/26/2023 Office Visit Neurology Qing Jose MD [address] [place] [address], [place] [address] Scheduled Procedures Name Priority Associated Diagnoses Date/Ti [...] 08/22/2023 08/21/2022, 07/30 CKD HGB USE SMARTSET 87181 08/22/202308/21, 02/20/2022, 09/12/2020, Additional history exists CKD PHOS USE SMARTSET 62023 08/22/202307/31, 08/08/2021, 06/21/2020, Additional history exists TSH 08/22/2023 08/21/2022, 01/31, 08/08/2021, Additional history exists Cervical Cancer Screening 08/30/2023 Pap Smear 08/30/2023 08/29/2020, 01/31, 05/29/2016, Additional history exists DTaP,Tdap,and Td Vaccines (4 - Td or Tdap) 11/15/2024 11/15/2014, 11/15/2014, 03/10/2010 Diabetes Screening 08/21/2025 08/21/2022, 0 08/21/2022, 02/20/2022, Additional history exists COLONOSCOPY-EVERY 5 YRS AGES 18-100 06/15/2027 06/14/2022, 06/14/2022 Lipid Panel 08/22/2027 08/21/2022, 1105/2021, 08/08/2021, Additional history exists Pneumococcal Vaccine: Pediatrics [...] of anterior talofibular ligament of right ankle, initial encounter- Primary Sprain of right foot, initial encounter documented in this encounter Additional Health Concerns Infection Onset Date Last Indicated Resolved Time Enterovirus (resp)/Rhinovirus 01/04/2023 01/04/2023 documented as of this encounter Care Teams Clinic Md Associate Relationship Specialty Start Date End Date Katherine Dumont MD 200 [place] [address] PCP - General 03/10/09 documented as of this encounter
--- OUTSIDE RECORDS SUMMARY | 2023-05-07 04:37 | External Medical Summary | Summary of Care ---
Author Name Unknown Organization [facility] Address [address] [place] [address] Phone [phone] Care Team Providers Care Concrete Pourer Name Role Phone Katherine Dumont MD Primary Care Provider [phone] Reason for Visit * Reason Comments eRx-Medication Refill Encounter Details Date Type Department Care Team Description 12/01/2022 Refill General Internal Medicine [facility] [place] [address] [place] [address] Katherine Dumont MD [address] [place] [facility] [place] [address] Hyperlipidemia with target LDL less than 100 Allergies No known active allergiesdocumented as of this encounter (statuses as of 12/03/2022) Medications Medication Sig Dispensed Refills Start Date [...] once daily 90 Tablet 2 12/03/2022 Active Atorvastatin Calcium 10 MG Oral Tablet (Lipitor)Indications :Hyperlipidemia with target LDL less than 100 take 1 tablet by mouth once daily 90 Tablet 3 12/12/2021 3 Discontinued Hospital, Clinic, or Other Facility Administered Medication Ordered Dose Route Frequency Start Date End Date Status paliperidone palmitate ER (Invega Sustenna) inj 234 mgIndications:Undifferentiate d schizophrenia (HCC) 234 mg IM [id number] 12/15/2020 Act risa documented as of this encounter (statuses as of 12/03/2022) Active Problems Problem Noted Date Severe obesity [...] as of this encounter (statuses as of 12/03/2022) Resolved Problems Problem Noted Date Resolved Date [...] as of this encounter (statuses as of 12/03/2022) Immunizations Name Administration Dates Next Due COVID-19 [...] encounter Miscellaneous Notes * Telephone Encounter - Mandie Mckoy RPh - 12/03/2022 7:31 AM EDTSigned Prescriptions: Disp Refills Atorvastatin Calcium 10 MG Oral Tablet (Li*90 Tab*2 Sig: take 1 tablet by mouth once dailyAuthorizing Provider: Jamil DUMONT User: MANDIE MCKOY--- documented in this encounter Plan of Treatment Upcoming Encounters Date Type Specialty Care Team Description 12/25/2022 Nurse Only Ancillary Nurse, Int Med [address] [place] [address] 01/30/2023 Office Visit Nephrology Yojana Dinero PA-C 200 [facility] [place] [address] 02/28/2023 Office Visit Internal Medicine Katherine Dumont MD 200 [facility] [place] [address] 06/27/2023 Imaging Radiology 09/26/2023 Office Visit Neurology Qing Jose MD 200 [place] [address] Scheduled Procedures Name Priority Associated Diagnoses Date/Ti [...] 08/22/2023 08/21/2022, 07/30 CKD HGB USE SMARTSET 15401 08/22/202308/21, 02/20/2022, 09/12/2020, Additional history exists CKD PHOS USE SMARTSET 58348 08/22/202307/31, 08/08/2021, 06/21/2020, Additional history exists TSH [...] as of this encounter Visit Diagnoses Diagnosis Hyperlipidemia with target LDL less than 100 Other and unspecified hyperlipidemia documented in this encounter Care Teams Concrete Pourer Relationship Specialty Start Date End Date Katherine Dumont MD [address] [place] [address] PCP - General 03/10/09 documented as of this encounter
--- OUTSIDE RECORDS SUMMARY | 2023-05-07 04:37 | External Medical Summary | Summary of Care ---
Author Name Unknown Organization [facility] Address [address] [place] [address] Phone [phone] Care Team Providers Care Cloth Bin Packer Name Role Phone Katherine Dumont MD Primary Care Provider [phone] Reason for Visit * Reason Onset Date Comments Advice 11/30/2022 Encounter Details Date Type Department Care Team Description 11/30/2022 Telephone General Internal Medicine [facility] [place] [address] [place] [address] Katherine Dumont MD [address] [facility] [address] Advice Allergies No known active allergiesdocumented as of this encounter (statuses as of 11/30/2022) Medications Medication Sig Dispensed Refills Start Date [...] mgIndications:Undifferentiate d schizophrenia (HCC) 234 mg IM [id number] 12/15/2020 Act risa documented as of this encounter (statuses as of 11/30/2022) Active Problems Problem Noted Date Severe obesity [...] as of this encounter (statuses as of 11/30/2022) Resolved Problems Problem Noted Date Resolved Date [...] as of this encounter (statuses as of 11/30/2022) Immunizations Name Administration Dates Next Due COVID-19 [...] Telephone Encounter - Kerline Awan LPN - 11/30/2022 3:49 PM EDT Spoke with Roseanne. Relayed Dr. Poe's message below. Verbalized understanding. * Telephone Encounter - Daysi Poe MD - 11/30/2022 3:16 PM EDT No need to start Paxlovid. Continue hydration, Tylenol as needed, symptomatic treatment with salinespray twice a day. Follow CDC guideline for self quarantine at least 5 days and until no fever for 24 hour without any medication. If develops any chest pain, shortness of breath or any other significant symptoms to be taken to emergency room. Avoid any NSAIDs. * Telephone Encounter - KALPANA Haley - 11/30/2022 2:34 PM EDT Roseanne calling from [facility] to see if there was an update on her message before. Pt tested positive for covid and she would like to know if she needs to have an appt to be seen. Looking for recommendations on how to treat symptoms, which are runny and stuffy nose, vomiting, body aches, chills,tired. Please call back as soon as possible * Telephone Encounter - KALPANA Macario - 11/30/2022 12:15 PM EDT Roseanne From [facility] called in advised pt tested positive for COVID she wants to know if pt needs to be seen or what will be next steps documented in this encounter Plan of Treatment Upcoming Encounters Date Type Specialty Care Team Description 12/25/2022 Nurse Only Ancillary Nurse, Int Med [address] [facility] [place] [address] 01/30/2023 Office Visit Nephrology Yojana Dinero PA-C [address] [facility] [address] [place] [address] 02/28/2023 Office Visit Internal Medicine Katherine Dumont MD [address] [facility] [place] [address] 06/27/2023 Imaging Radiology 09/26/2023 Office Visit Neurology Qing Jose MD [address] [facility] [place] [address] Scheduled Procedures Name Priority Associated Diagnoses Date/Ti [...] 08/22/2023 08/21/2022, 07/30 CKD HGB USE SMARTSET 98595 08/22/202308/21, 02/20/2022, 09/12/2020, Additional history exists CKD PHOS USE SMARTSET 90618 08/22/202307/31, 08/08/2021, 06/21/2020, Additional history exists TSH [...] filedocumented as of this encounter Care Teams Cloth Bin Packer Relationship Specialty Start Date End Date Katherine Dumont MD [address] [facility] [place] [address] PCP - General 03/10/09 documented as of this encounter
--- OUTSIDE RECORDS SUMMARY | 2023-05-07 04:37 | External Medical Summary | Summary of Care ---
Author Name Unknown Organization [facility] Address [address] [place] [address] Phone [phone] Care Team Providers Care Personal Banking Officer Name Role Phone Katherine Dumont MD Primary Care Provider [phone] Encounter Details Date Type Department Care Team Description 01/15/2023 Orders Only Orthopaedics [facility] [address] [place] [address] SharerYasmine PA-C [address] [place] [address] Allergies No known active allergiesdocumented as of [...] mgIndications:Undifferentiate d schizophrenia (HCC) 234 mg IM Q6CDMON 12/15/2020 Act risa documented as of this [...] Ancillary Nurse, Int Med [address] [facility] [address] 01/29/2023 Office Visit Orthopedics Sharer, Yasmine Culver PA-C [address] [place] [address] 01/30/2023 Office Visit Nephrology Yojana Dinero PA-C [address] [place] [address] 02/28/2023 Office Visit Internal Medicine Katherine Dumont MD [address] [place] [address] 06/27/2023 Imaging Radiology 09/26/2023 Office Visit Neurology Qing Jose MD [address] [place] [address] Scheduled Procedures Name Priority Associated Diagnoses Date/Ti [...] 08/22/2023 08/21/2022, 07/30 CKD HGB USE SMARTSET 00440 08/22/202308/21, 02/20/2022, 09/12/2020, Additional history exists CKD PHOS USE SMARTSET 05078 08/22/202307/31, 08/08/2021, 06/21/2020, Additional history exists TSH [...] study not interpreted or resulted by a [facility] or [facility] contracted radiologist. Yasmine Jacobo PA-C RADIOLOGY ([facility]) documented in this encounter Additional Health Concerns Infection Onset Date Last Indicated Resolved Time Enterovirus (resp)/Rhinovirus 01/04/2023 01/04/2023 documented as of this encounter Care Teams Personal Banking Officer Relationship Specialty Start Date End Date Katherine Dumont MD [address] [place] [address] PCP - General 03/10/09 documented as of this encounter
[2023-05-07] MEDS: SODIUM CHLORIDE 0.9% 1,000 ML IV SCH (05:19)
[2023-05-07] MEDS: OSELTAMIVIR PHOSPHATE 75 MG CAP PO SCH (06:13)
[2023-05-07 06:30] LABS: Basophils # (auto) 0.02 K/uL (0.00-0.20); Basophils % (auto) 0.2 %; Eosinophils # (auto) 0.02 K/uL (0.00-0.50); Eosinophils % (auto) 0.2 %; Hemoglobin 13.8 g/dl (12.0-16.0); Immature Granulocytes # (auto) 0.03 K/uL (0.01-0.20); Immature Granulocytes % (auto) 0.3 %; Lymphocytes # (auto) 2.25 K/uL (1.20-3.40); Mean Corpuscular Hgb Conc 33.7 g/dL (32.0-36.0); Mean Corpuscular Volume 86.1 fL (80.0-100.0); Mean Platelet Volume 10.6 fL (9.4-12.4); Monocytes % (auto) 8.9 %; Neutrophils # (auto) 5.87 K/uL (1.40-6.50); Neutrophils % (auto) 65.4 %; Platelet Count 206 K/uL (130-400); RDW Coefficient of Variation 12.2 % (11.5-14.5); RDW Standard Deviation 38.5 fL (36.4-46.3); Red Blood Count 4.76 M/uL (4.20-5.40); White Blood Count 8.99 K/ul (4.8-10.8)
[2023-05-07] MEDS: LEVOTHYROXINE SODIUM 75 MCG TABLET PO SCH (06:35)
[2023-05-07 06:42] LABS: Calcium 9.2 mg/dl (8.6-10.3); Creatinine Clr Calc Pharmacy 78.2 ml/min; Est GFR (African American) 77.7 ml/min; Magnesium 1.7 mg/dl (1.7-2.4); Potassium 3.5 mmol/L (3.5-5.1)
--- NOTE | 2023-05-07 08:03 | Electrocardiogram Report ---
Test Reason : Blood Pressure : / mmHG Vent. Rate : 110 BPM Atrial Rate : 110 BPM P-R Int : 114 ms QRS Dur : 078 ms QT Int : 328 ms P-R-T Axes : 062 020 130 degrees QTc Int : 443 ms Sinus tachycardia Left atrial enlargement Diffuse Minor Nonspecific ST and T wave abnormality Abnormal ECG When compared with ECG of 28-SEP-2019 10:39, Confirmed by Jonatan Hodges ([id number]) on 05/07/2023 8:02:49 AM Referred By: REFERRED SELF Confirmed By:Jonatan Hodges
[2023-05-07] MEDS: lamoTRIgine 25 MG TAB PO SCH (08:42)
[2023-05-07] MEDS: lamoTRIgine 100 MG TAB PO SCH (08:42)
[2023-05-07] MEDS: FLUoxetine HCL 10 MG CAP PO SCH (08:43)
[2023-05-07] MEDS: ENOXAPARIN INJ 40 MG/0.4 ML SYR SQ SCH (08:48)
[2023-05-07 15:54] LABS: Thyroid Stimulating Hormone 1.284 uIu/ml (0.300-4.500)
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
--- NOTE | 2023-05-07 17:33 | Communication Note ---
Date of Service: May 07, 2023 The patient was seen and examined in the emergency room in presence of the niece. She has significant past medical history including undifferentiated helder izophrenia, mild intellectual disability and seizure disorder. Was admitted with a fall and witnessed seizures for about 1 minute. She missed [address] scan of the head and neck were unremarkable. She has been stable hemodynamically since admission and her labs are unremarkable. Awaiting neuro evaluation and also an EEG. She was evaluated by psychiatrist and no further action required for her psychiatric problem that seems to be stable. Will continue current management. Further progress note will be done tomorrow. Dr Janny Mcguire
--- NOTE | 2023-05-07 17:33 | Neurology Consultation ---
Date of Consultation May 07, 2023 Assessment & Plan (1) Seizure-like activity: Breakthrough seizure in the setting of a known seizure disorder, possible missed med dose and flu. She is still mildly post-ictal. Recommend continued lamotrigine 150mg BID. EEG is completed, will not currency exchange specialist as she has a known seizure disorder. -- Continue lamotrigine 150mg BID -- Continue supportive care for flu -- Ativan for breakthrough is reasonable -- No further neurologic workup Telehealth Consultation Telehealth Information Telehealth Information: I performed this visit using a real-time telehealth connection between my location and the patients location ([facility]). After connecting through interactive tele-video, patient was identified by name and date of and/or wristband check.Patient (or authorized healthcare major account representative) was informed that this was a telemedicine visit and it was being conducted confidentially over secure lines. My office door was closed and no one else was present in the room with me.Patient (or authorized healthcare major account representative) provided consent to proceed with the visit, expressed an understanding of privacy and security of the telemedicine visit, and gave permission to have a hospital major account representative in the room in order to assist with the visit and to conduct portions of the visit, as needed. I informed the patient (or authorized healthcare major account representative) that I reviewed their record and presented the opportunity for them to ask any questions regarding the visit today. The patient agreed to participate. History of Present Illness Reason for Consultation: Seizure Requesting Physician: Dr. Mcguire Attending Physician: Carolyn Mcguire MD History of Present Illness Veronica Saleh is a 48 yo F with cognitive impairment and seizure disorder on lamotrigine monotherapy. She lives in a monitored apartment and manages her own medications with the help of staff. She may have missed a dose of lamotrigine but came to the ED yesterday with a seizure. She was still mildly confused and not at her baseline and was admitted overnight, found to have the flu. She has been on lamotrigine 150mg BID without any medication changes, her last seizure was 10-15 years ago but may have taken 2 days to return to baseline. Allergies Allergy/AdvReac Type Severity Reaction Status Date / Time No Known Allergies Allergy Unknown Verified 05/06/23 23:03 Home Medications Medication Instructions Recorded Confirmed Type atorvastatin 10 mg tablet 10 mg PO HS 09/28/19 05/06/23 History fluoxetine 10 mg capsule (Prozac) 30 mg PO DAILY 08/11/20 05/06/23 History lorazepam 0.5 mg tablet 0.5 mg PO HS 08/11/20 05/06/23 History lamotrigine 150 mg tablet 150 mg PO BID 05/06/23 05/06/23 History levothyroxine 75 mcg tablet 75 mcg PO QAM 05/06/23 05/06/23 History paliperidone palmitate 234 mg/1.5 234 mg IM .MONTH 05/06/23 05/07/23 History mL intramuscular syringe (Invega Sustenna) Patient History Medical History Psychosis Seizure-like activity Family history non-contributory Acute UTI (urinary tract infection) Schizoaffective disorder Surgical History H/O tubal ligation No pertinent past surgical history Family History Father Prostate cancer Denies family history of Ovarian cancer Myocardial infarction Breast cancer Colorectal cancer Social History Smoking Status: Never smoker Second Hand Exposure: No; Do You Dip or Chew Tobacco: No; Hx Alcohol Use: No Hx Substance Use: No Preferred Language: Syriac Communication Ability: Effective Livestock Breeder Required: No Beliefs That Will Affect Care: None marital status: Single Current Living Situation: Alone Current Living Situation Comment: [employer] program checks in daily current occupational status: employed How many Children do You have: 0 Feels Safe at Home: Yes Safety Concerns: Feels Safe At This Time caffeine: No Dental Care, Regularly: Yes Physical Activity Frequency: 3-4 Times per Week Seatbelt Use: always Sunscreen Use: Yes Assistive Devices: None Review of Systems Unable to obtain Results & Data Vital Signs (Past 12 Hours) Vital Signs Pulse Pulse Resp BP BP Pulse Ox Pulse Ox 05/07/23 16:00 97 H 19 126/82 96 05/07/23 15:26 113 H 05/07/23 11:00 109 H 28 H 97 05/07/23 08:10 81 21 144/78 H 96 05/07/23 07:16 120 H 02/06/24 06:39 99 05/07/23 06:01 150/103 H 05/07/23 06:00 88 12 136/87 96 O2 Del Method O2 Del Method 05/07/23 16:00 Room Air 05/07/23 15:26 05/07/23 11:00 Room Air 05/07/23 08:10 Room Air 05/07/23 07:16 05/07/23 06:39 Room Air 05/07/23 06:01 05/07/23 06:00 Laboratory Results Abnormal lab results 05/06/23 05/06/23 05/06/23 Range/Units 18:00 19:48 20:37 [place] # (Auto) 0.68 H (0.11-0.59) K/uL Sodium 135 L (136-145) mmol/L Potassium 3.4 L (3.5-5.1) mmol/L Chloride (98-107) mmol/L Anion Gap 12 H (3-11) BUN/Creatinine Ratio (10-20) Glucose 149 H (70-99(Fasting)) mg/dl Urine Protein 1+ H (Negative) Urine Ketones 1+ H (Negative) Nasal Influ A 2008 PCR DETECTED A* (NotDetected) 05/07/23 Range/Units 05:50 [place] # (Auto) 0.80 H (0.11-0.59) K/uL Sodium (136-145) mmol/L Potassium (3.5-5.1) mmol/L Chloride 108 H (98-107) mmol/L Anion Gap (3-11) BUN/Creatinine Ratio 9.0 L (10-20) Glucose 111 H (70-99(Fasting)) mg/dl Urine Protein (Negative) Urine Ketones (Negative) Nasal Influ A 2008 PCR (NotDetected) Diagnostic Findings CT head - unremarkable
[2023-05-07] MEDS: ATORVASTATIN 10 MG TAB PO SCH (20:36)
[2023-05-07] MEDS: LORazepam 0.5 MG TAB PO SCH (20:36)
--- NOTE | 2023-05-07 22:40 | Electroencephalogram ---
EEG Procedure Note Date of Service May 07, 2023 Start / End Times Start Time: 11:26 End Time: 11:46 Referring Physician Carlos Manuel Nava History A 48 year old female with known epilepsy and breakthrough seizure. EEG performed for evaluation of epileptiform activity. Home Medication List Medication Instructions Recorded Confirmed Type atorvastatin 10 mg tablet 10 mg PO HS 09/28/19 05/06/23 History fluoxetine 10 mg capsule (Prozac) 30 mg PO DAILY 08/11/20 05/06/23 History lorazepam 0.5 mg tablet 0.5 mg PO HS 08/11/20 05/06/23 History lamotrigine 150 mg tablet 150 mg PO BID 05/06/23 05/06/23 History levothyroxine 75 mcg tablet 75 mcg PO QA 05/06/23 05/06/23 History paliperidone palmitate 234 mg/1.5 234 mg IM .MONTH 05/06/23 05/07/23 History mL intramuscular syringe (Invega Sustenna) Inpatient Medication List Atorvastatin Calcium (Atorvastatin 10 Mg Tab) 10 mg PO HS [facility] Stop: 06/06/23 20:59 Last Admin: 05/07/23 20:36 Dose: 10 mg Documented By: KATHY Enoxaparin Sodium (Enoxaparin Inj 40 Mg/0.4 Ml Syr) 40 mg SQ Q24H [facility] Stop: 06/06/23 08:59 Last Admin: 05/07/23 08:48 Dose: 40 mg Documented By: BRENNAN Fluoxetine HCl (Fluoxetine Hcl 10 Mg Cap) 30 mg PO DAILY [facility] Stop: 06/06/23 08:59 Last Admin: 05/07/23 08:43 Dose: 30 mg Documented By: BRENNAN Lamotrigine (Lamotrigine 100 Mg Tab) 100 mg PO BID [facility] Stop: 06/06/23 08:59 Last Admin: 05/07/23 20:36 Dose: 100 mg Documented By: Admin: 05/07/23 08:42 Dose: 100 mg Documented By: BRENNAN Lamotrigine (Lamotrigine 25 Mg Tab) 50 mg PO BID [facility] Stop: 06/06/23 08:59 Last Admin: 05/07/23 20:36 Dose: 50 mg Documented By: Admin: 05/07/23 08:42 Dose: 50 mg Documented By: BRENNAN Levothyroxine Sodium (Levothyroxine Sodium 75 Mcg Tablet) 75 mcg PO DAILYBB [facility] Stop: 06/06/23 06:29 Last Admin: 05/07/23 06:35 Dose: 75 mcg Documented By: YUE Lorazepam (Lorazepam 0.5 Mg Tab) 0.5 mg PO HS [facility] Stop: 06/06/23 20:59 Last Admin: 05/07/23 20:36 Dose: 0.5 mg Documented By: KATHY Oseltamivir Phosphate (Oseltamivir Phosphate 75 Mg Cap) 75 mg PO BID [facility]; Protocol Stop: 05/12/23 03:48 Last Admin: 05/07/23 18:52 Dose: 75 mg Documented By: Admin: 05/07/23 06:13 Dose: Not Given Documented By: YUE Discontinued Medications Sodium Chloride (Nss) 1,000 mls @ 999 mls/hr IV .Q1H1M ONE Stop: 05/06/23 20:39 Last Infusion: 05/06/23 21:56 Dose: Infused Documented By: Admin: 05/06/23 20:26 Dose: 999 mls/hr Documented By: SABAS Sodium Chloride (Nss) 1,000 mls @ 80 mls/hr IV .[id number] [facility] Stop: 05/07/23 16:18 Last Infusion: 05/07/23 17:37 Dose: Infused Documented By: Admin: 05/07/23 05:19 Dose: 80 mls/hr Documented By: YUE Description This is a 21 electrode EEG with a single channel dedicated to limited EKG. The electrodes were placed in accordance with the International 10-20 system. REPORT: At the onset the patent is awake. The background is continuous and appears symmetric. The posterior dominant rhythm is not well seen. Instead the background is suppressed with superimposed low amplitude fast activity. No stage II sleep transients are seen. Interpretation IMPRESSION: This is an abnormal routine EEG due to generalized background slowing / suppression suggestive of a non specific encephalopathy. The excessive beta activity is a normal variant and likely secondary to medications (ie benzodiazepines).
[2023-05-08 07:21] LABS: Basophils # (auto) 0.04 K/uL (0.00-0.20); Basophils % (auto) 0.5 %; Eosinophils # (auto) 0.04 K/uL (0.00-0.50); Eosinophils % (auto) 0.5 %; Hematocrit (blood only) 42.3 % (37.0-47.0); Immature Granulocytes # (auto) 0.04 K/uL (0.01-0.20); Immature Granulocytes % (auto) 0.5 %; Lymphocytes # (auto) 2.62 K/uL (1.20-3.40); Lymphocytes % (auto) 31.3 %; Mean Corpuscular Hgb Conc 33.1 g/dL (32.0-36.0); Mean Corpuscular Volume 87.6 fL (80.0-100.0); Mean Platelet Volume 10.5 fL (9.4-12.4); Monocytes # (auto) 0.58 K/uL (0.11-0.59); Monocytes % (auto) 6.9 %; Neutrophils # (auto) 5.06 K/uL (1.40-6.50); Neutrophils % (auto) 60.3 %; Platelet Count 220 K/uL (130-400); RDW Coefficient of Variation 12.3 % (11.5-14.5); RDW Standard Deviation 39.3 fL (36.4-46.3); Red Blood Count 4.83 M/uL (4.20-5.40); White Blood Count 8.38 K/ul (4.8-10.8)
[2023-05-08 07:40] LABS: Calcium 9.6 mg/dl (8.6-10.3); Creatinine Clr Calc Pharmacy 70.1 ml/min; Est GFR (African American) 69.2 ml/min; Est GFR (Non-African American) 59.7 ml/min; Potassium 3.3 mmol/L (3.5-5.1)
[2023-05-08] MEDS: POTASSIUM CHLORIDE CRTAB 20 MEQ TABCR PO STA (09:10)
[2023-05-08 11:29] VITALS: RESP 18
--- NOTE | 2023-05-08 17:45 | Hospitalist Progress Note ---
Date of Service May 08, 2023 Assessment & Plan (1) Seizure-like activity: Plan: 48-year-old female with past med history significant for hypothyroidism, hyperlipidemia, hyperprolactinemia, obesity, gastroparesis, irritable bowel syndrome with diarrhea, GERD, stage III chronic disease, history of epilepsy, history of depression, history of undifferentiated schizophrenia, mild intellectual disability was not brought in because of seizure episode. Patient was at a group concert when she fell down and and witness seizures for around 1 minute. Seems she missed her last night dose of Lamictal. In ER patient seemed to came back to her usual self and planned to discharging her and mother was okay with it but then again patient became somewhat confused and mother was worried. Patient lives alone. Can cook food and take care of herself. Seldom Seen [employer] checks on her regularly as per mother. Since last she is having some cough ,sore throat and congestion. She tested positive for flu in the ER. Denies any fevers. Patient currently only staring and not answering any questions. Just once she answered no for fever. As per mother sometimes she does not talk. Hemodynamically stable. She is being managed for the following: Seizure-like activity Seems missed her Lamictal dose x 1 day worth Currently seems to be postictal, recovering Will place on IV Ativan as needed for breakthrough seizures Continue home medications Seizure precautions CT head no acute findings. Stable dilated right ventricle.Stable cavum vellum interpositum. EEG at her baseline. Neurology evaluated, continue prior to arrival home medication. No further neurological workup. Influenza positive Symptoms had for last few days Tamiflu Droplet precautions Supportive care Hyperlipidemia On statin Hypothyroidism On Synthyroid Depression On fluoxetine History of undifferentiated schizophrenia On IM Invega Sustenna Mother wanted psychiatry consult as patient seems to having hallucinations. DVT prophylaxis Lovenox Disposition Telemetry floor Full code Admission and Anticipated Discharge Date Admission Date: May 07, 2023 Subjective Patient was seen and examined at bedside. Patient was lying in bed, on room air, oriented x 1, not in any acute distress. Patient's mother at bedside, confirms that patient is improving gradually, is still slow to respond and not back to her baseline. Patient does not want to go home today and would like to be discharged tomorrow. Patient denies any headache or dizziness or chest pain or abdominal pain. Per RN, patient is eating okay and moving bowels okay, no further seizure episodes in the hospital. Physical Exam Physical Exam: General- Not in distress. Head- atraumatic Eyes- PERRL. ENT- oropharynx clear Neck- supple, no JVD. Lungs- clear to auscultation no wheezing or crackles. Heart- regular rhythm; no murmur, no gallop. Abdomen- normal bowel sounds, soft, nontender, no distension. Extremities- no pretibial edema, no erythema seen. Neuro- alert, and awake, not answering questions.; PERRL, no facial palsy;moves extremities. Results & Data Results & Data Vital Signs (Past 12 Hours) Vital Signs Temp Pulse Pulse Resp BP Pulse Ox Pulse Ox 05/08/23 15:33 79 05/08/23 14:55 37.1 C 81 18 138/80 94 05/08/23 11:29 36.5 C 80 18 143/83 H 96 05/08/23 08:00 91 H 05/08/23 07:08 05/08/23 07:04 36.6 C 71 20 130/89 96 05/08/23 06:00 95 O2 Del Method O2 Del Method 05/08/23 15:33 05/08/23 14:55 Room Air 05/08/23 11:29 Room Air 05/08/23 08:00 05/08/23 07:08 Room Air 05/08/23 07:04 Room Air 05/08/23 06:00 Room Air
[2023-05-09 07:49] LABS: BUN Creatinine Ratio 9.4 (10-20); Creatinine Clr Calc Pharmacy 65.4 ml/min; Est GFR (African American) 64.3 ml/min; Est GFR (Non-African American) 55.4 ml/min; Magnesium 1.8 mg/dl (1.7-2.4); Potassium 4.4 mmol/L (3.5-5.1)
[2023-05-09 11:54] VITALS: PULSE 81; TEMP 98.2; O2SAT 93
--- NOTE | 2023-05-09 13:01 | Discharge Summary ---
Date of Service May 09, 2023 Admission HPI Per Admitting Provider 48-year-old female with past med history significant for hypothyroidism, hyperlipidemia, hyperprolactinemia, obesity, gastroparesis, irritable bowel syndrome with diarrhea, GERD, stage III chronic disease, history of epilepsy, history of depression, history of undifferentiated schizophrenia, mild intellectual disability was brought in because of seizure episode. Patient was at a group concert when she fell down and and witness seizures for around 1 minute. Seems she missed her last night dose of Lamictal. In ER patient seemed to came back to her usual self and planned to discharging her and mother was oka y with it but then again patient became somewhat confused and mother was worried. Patient lives alone. Can cook food and take care of herself. [facility] checks on her regularly as per mother. Since last she is having some cough ,sore throat and congestion. She tested positive for flu in the ER. Denies any fevers. Patient currently only staring and not answering any questions. Just once she answered no for fever. As per mother sometimes she does not talk. Hemodynamically stable. Currently could not get any history. Past medical history. As mentioned above Past surgical history. Left breast recent excision. Colonoscopy. EGD with biopsy. Laparoscopic cholecystectomy. Ligation of oviducts. Social history. Lives alone. No smoking. Alcohol occasional. No drug use. Family history. Paternal aunt had breast cancer. Paternal cousin had breast cancer. Paternal grandfather had colon cancer. Aunt has diabetes. Admission Exam Per Admitting Provider General- Not in distress. Head- atraumatic Eyes- PERRL. ENT- oropharynx clear Neck- supple, no JVD. Lungs- clear to auscultation no wheezing or crackles. Heart- regular rhythm; no murmur, no gallop. Abdomen- normal bowel sounds, soft, nontender, no distension. Extremities- no pretibial edema, no erythema seen. Neuro- alert, and awake, not answering questions.; PERRL, no facial palsy;moves extremities. Principal Diagnosis Seizure like activity secondary to missed Lamictal dose influenza URTI Discharge Exam General- Not in distress. Head- atraumatic Eyes- PERRL. ENT- oropharynx clear Neck- supple, no JVD. Lungs- clear to auscultation no wheezing or crackles. Heart- regular rhythm; no murmur, no gallop. Abdomen- normal bowel sounds, soft, nontender, no distension. Extremities- no pretibial edema, no erythema seen. Neuro- alert, and awake, not answering questions.; PERRL, no facial palsy;moves extremities. Discharge Data Allergies Allergy/AdvReac Type Severity Reaction Status Date / Time No Known Allergies Allergy Unknown Verified 05/06/23 23:03 Consultations 05/06/23 23:50 ED Decision to Admit Stat 05/07/23 06:11 Consult Psychiatry Routine 05/07/23 08:00 Consult Neurology Routine Ordered Studies 05/06/23 19:38 CT cervical spine wo con Stat CT head/brain wo con Stat Hospital Course (1) Seizure-like activity: 48-year-old female with past med history significant for hypothyroidism, hyperlipidemia, hyperprolactinemia, obesity, gastroparesis, irritable bowel syndrome with diarrhea, GERD, stage III chronic disease, history of epilepsy, history of depression, history of undifferentiated schizophrenia, mild intellectual disability was not brought in because of seizure episode. Patient was at a group concert when she fell down and and witness seizures for around 1 minute. Seems she missed her last night dose of Lamictal. In ER patient seemed to came back to her usual self and planned to discharging her and mother was okay with it but then again patient became somewhat confused and mother was worried. Patient lives alone. Can cook food and take care of herself. [facility] checks on her regularly as per mother. Since last she is having some cough ,sore throat and congestion. She tested positive for flu in the ER. Denies any fevers. Patient currently only staring and not answering any questions. Just once she answered no for fever. As per mother sometimes she does not talk. Hemodynamically stable. She was managed for the following: Seizure-like activity Seems missed her Lamictal dose x 1 day worth Currently seems to be postictal, recovering gradually Continue home medications Seizure precautions CT head no acute findings. Stable dilated right ventricle.Stable cavum vellum interpositum. EEG at her baseline. Neurology evaluated, continue prior to arrival home medication. No further neurological workup. No further seizure episodes at home Influenza positive Symptoms had for last few days Tamiflu Droplet precautions Supportive care Hyperlipidemia On statin Hypothyroidism On Synthyroid Depression On fluoxetine History of undifferentiated schizophrenia On IM Invega Sustenna Mother wanted psychiatry consult as patient seems to having hallucinations. DVT prophylaxis Lovenox Disposition Telemetry floor Full code Patient is being discharged home with family support with following instruction at the point of discharge: Follow-up with your primary care physician within a week time and likely you will need labs CBC/CMP/magnesium/phosphorus. Follow-up with neurology as prior. Maintain compliance with her Lamictal. Take medications as prescribed. Please make sure that you are able to get your medications today by calling your pharmacy before you leave the hospital so that your treatment continuity is not broken. Home Health Attestation I certify that this patient is under my care and that I, or a physicians accounting manager assistant controller working with me, had a face to-face encounter that meets the home health [id number] encounter requirements with this patient. The encounter with the patient was in whole, or in part, for the following medical condition, which is the primary reason for home health care (list medical condition): I certify that, based on my findings, the following services are medically necessary home health services: My clinical findings support the need for the above services because: Further, I certify that my clinical findings support that this patient is homebound (i.e. absences from home require considerable and taxing effort and are for medical reasons or temple services or infrequently or of short duration when for other reasons) because: Certification for Home Health Services: Based on the above findings, I certify that this patient is confined to the home and needs intermittent group home care, physical therapy and/or speech therapy or continues to need occupational therapy. The patient is under my care, and I have initiated the establishment of the plan of care. This patient will be followed by a physician who will periodically review the plan of care. Total Time Total Time Spent Total Time Spent (In Minutes): 45 Discharge Plan Discharge Items Patient Disposition: Home - Self-Care Reason For Visit: SEIZURE Discharge Diagnosis: Seizure like activity secondary to missed Lamictal dose influenza URTI Activity: Resume your previous activity Non-emergency contact: Primary Care Provider Call non-emergency contact if: you have any medication questions, your symptoms worsen and your temperature is above 101.5 Follow-up/Referrals: Katherine Dumont MD [Primary Care Provider] - (Date & Time 05/16/2023 11:00 AM Provider Katherine Dumont MD Department General Internal Medicine [facility] ) Diet: Heart Healthy Addtl Attending Provider Instructions: Follow-up with your primary care physician within a week time and likely you will need labs CBC/CMP/magnesium/phosphorus. Follow-up with neurology as prior. Maintain compliance with her Lamictal. Take medications as prescribed. Please make sure that you are able to get your medications today by calling your pharmacy before you leave the hospital so that your treatment continuity is not broken. Pending Studies at Discharge: No Stand-Alone Forms: My [facility], Smoking Cessation Medications and DC Order Prescriptions: New oseltamivir [Tamiflu] 75 mg Capsule 75 mg PO BID 3 Days Qty: 6 0RF Continued lorazepam 0.5 mg tablet 0.5 mg PO HS fluoxetine [Prozac] 10 mg capsule 30 mg PO DAILY atorvastatin 10 mg tablet 10 mg PO HS lamotrigine 150 mg tablet 150 mg PO BID levothyroxine 75 mcg tablet 75 mcg PO QAM Invega Sustenna 234 mg/1.5 mL syringe 234 mg IM .MONTH Discharge Orders: Discharge Order (Routine); Ordered 05/09/23 Ordered By: Rochelle Hopper Admission Data Admit Date/Time: 05/07/23 02:16 Attending Provider: Rochelle Hopper Admit Provider: Carlos Manuel Nava Primary Care Provider: Katherine Dumont Other Providers: Carlos Manuel Nava; Qing Blackman; Tarun Barakat; Qing Jose; Ad Corrales; Elie Nelson; Lenny Rodriguez; Jonatan Ricketts; Luly Hawkins; Dk Orr; Ethan Mendoza; Sunil Collins; Dick Galdamez; Yazmin Cheng; Ambika Navarro; Jonatan Robins; Megan Salcido; Emilie Howe; Ad Britton; Jeremias Gtz; Anjel Kilpatrick Jr; Kamlesh Calixto
[2023-05-09 13:39] VITALS: BP 149/90
== END 2023-05-09 14:01 | disposition home or self-care (01) | DRG 101 ==
LOC: ED 17:53 → SUATTDRO 05-07 02:16 → EDINP 05-07 02:16 → 2S 05-07 21:00